=== PATIENT | male | born 1945 | race Caucasian/White ===

== ENCOUNTER 2021-08-04 12:48 | Outpatient (CLI) | payer OTHER, SELFPAY ==
[2021-08-04 17:27] LABS: Cholesterol* 174 mg/dL (90-199); HDL Cholesterol* 45 mg/dL (>=40); LDL Cholesterol Calculated 95 mg/dL (<100); Triglycerides* 168 mg/dL (40-149)
[2021-08-06 16:23] LABS: Transferrin 266 mg/dL (200-360)
== END 2021-08-04 12:49 | disposition home or self-care (01) ==
PROVIDERS: Visit Provider Emergency Medicine
DX: D50.9 Iron deficiency anemia, unspecified (principal); E78.5 Hyperlipidemia, unspecified; I10 Essential (primary) hypertension; E11.9 Type 2 diabetes mellitus without complications; I48.91 Unspecified atrial fibrillation
CPT/HCPCS: 80061; 82728; 84466

== ENCOUNTER 2021-09-07 08:03 | Outpatient (CLI) | payer OTHER, SELFPAY ==
--- NOTE | 2021-09-07 09:22 | W.ANESCHARGE ---
Anesthesia Charges Start Date/Time Anesthesia Start Date: 09/07/21 Anesthesia Start Time: 09:05 Stop Date/Time Anesthesia Stop Date: 09/07/21 Anesthesia Stop Time: 09:21 Summary Emergency: No Extremes of Age: Over 72-CPT 09736
--- NOTE | 2021-09-07 09:53 | W.ANESCHARGE ---
Anesthesia Charges Start Date/Time Anesthesia Start Date: 09/07/21 Anesthesia Start Time: 09:05 Stop Date/Time Anesthesia Stop Date: 09/07/21 Anesthesia Stop Time: 09:21 Summary Emergency: No Extremes of Age: Over 72-CPT 39471
== END 2021-09-07 08:04 | disposition home or self-care (01) ==
LOC: OP CLINIC 08:04
PROVIDERS: PCP Surgery; Visit Provider Surgery
DX: R58 Hemorrhage, not elsewhere classified (principal); K31.89 Other diseases of stomach and duodenum; K31.7 Polyp of stomach and duodenum
CPT/HCPCS: 43239; 731; 88305; 99100

== ENCOUNTER 2021-10-28 14:42 | Outpatient (CLI) | payer OTHER, SELFPAY ==
[2021-10-28 22:41] LABS: Albumin* 4.8 g/dL (3.3-5.0)
[2021-10-28 22:44] LABS: Alanine Aminotransferase* 19 U/L (4-50); Alkaline Phosphatase* 198 U/L (40-150); Aspartate Amino Transferase* 26 U/L (12-35); Bilirubin Direct* 0.2 mg/dL (0.0-0.5); Bilirubin Total* 0.6 mg/dL (0.1-1.5); Total Protein* 7.4 g/dL (6.0-8.3)
[2021-10-28 23:17] LABS: Ferritin* 41.3 ng/mL (17.9-464.0)
[2021-10-30 13:31] LABS: Gamma Glutamyl Transpeptidase* 39 U/L (8-55)
[2021-11-06 23:11] LABS: C.Difficile Negative (Negative); CDIFFEPI 027 PRESUMPTIVE NEGATIVE (Negative)
[2021-11-13 22:08] LABS: Campylobacter PCR Not Detected; Cdiff Toxin A/B PCR Not Detected; Enteroaggregative E coli PCR Not Detected; Plesiomonas shig PCR Not Detected; Salmonella PCR Not Detected; Vibrio PCR Not Detected; Vibrio cholerae PCR Not Detected; Yersinia enterocolitica PCR Not Detected
[2021-11-13 22:09] LABS: Adenovirus PCR Not Detected; Astrovirus PCR Not Detected; Cryptosporidium PCR Not Detected; Cyclospora cayetanensis PCR Not Detected; Entamoeba histolytica PCR Not Detected; Enteropathogenic E coli PCR Not Detected; Enterotoxigenic E coli PCR Not Detected; Giardia lamblia PCR Not Detected; Norovirus Gi/GII PCR Not Detected; Rotavirus A PCR Not Detected; Sapovirus PCR Not Detected; Shiga toxin E coli PCR Not Detected; Shigella/Enteroinvasive E coli Not Detected
== END 2021-10-28 14:43 | disposition home or self-care (01) ==
PROVIDERS: PCP Emergency Medicine; Visit Provider Emergency Medicine
DX: R19.7 Diarrhea, unspecified; D50.9 Iron deficiency anemia, unspecified; B35.1 Tinea unguium; R74.8 Abnormal levels of other serum enzymes; E11.9 Type 2 diabetes mellitus without complications
CPT/HCPCS: 80076; 82728; 82977; 87493; 87505

== ENCOUNTER 2021-11-06 11:37 | Outpatient (CLI) | payer OTHER, SELFPAY | END 2021-11-06 11:38 | disposition home or self-care (01) | LOC: LKVREF 11-09 12:31 | PROVIDERS: PCP Emergency Medicine; Visit Provider Emergency Medicine | DX: R19.7 Diarrhea, unspecified (principal) | CPT/HCPCS: 87493; 87505 ==

== ENCOUNTER 2021-11-19 16:20 | Outpatient (CLI) | payer OTHER, SELFPAY | END 2021-11-19 16:21 | disposition home or self-care (01) | LOC: LKVREF 16:21 | PROVIDERS: PCP Emergency Medicine; Visit Provider Emergency Medicine | DX: R19.7 Diarrhea, unspecified (principal) | CPT/HCPCS: 83516 ==

== ENCOUNTER 2021-12-28 10:43 | Outpatient (CLI) | payer OTHER, SELFPAY | END 2021-12-28 10:44 | disposition home or self-care (01) | LOC: CT 10:44 | PROVIDERS: PCP Family Medicine; Visit Provider Orthopaedic Surgery Sports Medicine | DX: M19.011 Primary osteoarthritis, right shoulder (principal) | CPT/HCPCS: 73200 ==

== ENCOUNTER 2022-02-15 09:43 | Outpatient (CLI) | payer OTHER, SELFPAY ==
[2022-02-15 14:18] LABS: Chloride* 95 mmol/L (96-114)
[2022-02-15 14:19] LABS: Albumin* 4.3 g/dL (3.3-5.0)
[2022-02-15 14:20] LABS: Sodium* 133 mmol/L (135-149)
[2022-02-15 14:29] LABS: Alanine Aminotransferase* 22 U/L (4-50); Alkaline Phosphatase* 180 U/L (40-150); Aspartate Amino Transferase* 21 U/L (12-35); Bilirubin Total* 0.8 mg/dL (0.1-1.5); Blood Urea Nitrogen* 13 mg/dL (7-30); Calcium* 9.5 mg/dL (8.4-10.6); Carbon Dioxide* 29 mmol/L (20-32); Cholesterol* 187 mg/dL (90-199); Creatinine* 0.6 mg/dL (0.5-1.5); Estimated Glomerular Filt Rate 101 ml/min; Glucose* 102 mg/dL (60-115); HDL Cholesterol* 52 mg/dL (>=40); LDL Cholesterol Calculated 108 mg/dL (<100); Potassium* 4.1 mmol/L (3.6-5.1); Total Protein* 6.8 g/dL (6.0-8.3); Triglycerides* 136 mg/dL (40-149)
[2022-02-15 14:45] LABS: Creatinine Urine 51.9 mg/dL
[2022-02-15 14:49] LABS: Microalbumin Creatinine Ratio 10 mg/g (0-30); Microalbumin Urine 1 mg/dL
[2022-02-15 14:57] LABS: Vitamin B12* 483 pg/mL (243-894)
== END 2022-02-15 09:44 | disposition home or self-care (01) ==
PROVIDERS: PCP Family Medicine; Visit Provider Family Medicine
DX: Z01.818 Encounter for other preprocedural examination (principal); D50.9 Iron deficiency anemia, unspecified; E11.9 Type 2 diabetes mellitus without complications; E78.5 Hyperlipidemia, unspecified; I10 Essential (primary) hypertension; I48.91 Unspecified atrial fibrillation; E04.1 Nontoxic single thyroid nodule; R53.83 Other fatigue
CPT/HCPCS: 80053; 80061; 82043; 82570; 82607; 83735; 84443

== ENCOUNTER 2022-02-24 07:12 | Day surgery (SDC) | payer OTHER, SELFPAY ==
[2022-02-24] VITALS (33 sets, daily range): BP systolic 118–169; BP diastolic 70–89; PULSE 52–79; RESP 14–18; TEMP 35.9–36.6; O2SAT 90–100; BMI 39.0
[2022-02-24] MEDS: CELECOXIB 200 MG CAPSULE PO (07:35)
[2022-02-24] MEDS: OXYCODONE (CR) 10 MG TAB.ER.12H PO (07:35)
[2022-02-24] MEDS: ACETAMINOPHEN 500 MG TABLET 1000 MG PO ×3 (07:35→20:49)
[2022-02-24] MEDS: LACTATED RINGERS 1000 ML 1,000 ML 100 ML IV (07:45)
[2022-02-24] MEDS: SODIUM CHLORIDE 0.9 % (FLUSH) 10 ML SYRINGE IVF (07:45)
[2022-02-24] MEDS: MIDAZOLAM HCL 1 MG/ML inj IVP (08:10)
[2022-02-24] MEDS: fentaNYL 100 MCG/2 ML inj IVP (08:10)
--- NOTE | 2022-02-24 08:23 | SUR.PREOP ---
TIME?OUT:?0809 PT/Eda WILSON RN/Mitchel OLIVARES MDA?VERIFICATION?OF?SURGICAL?SITE,?PROCEDURE,?AND?CONSENT OBTAINED?PRIOR?TO?INVASIVE?PROCEDURE.
--- NOTE | 2022-02-24 09:10 | P.NB_ITS ---
Nerve Block Nerve Block Time Seen by Provider: 08:12 Date Seen: 02/24/22 Type of block requested by surgeon for post-operative analgesia: supraclavicular Side: right Time out performed: Yes Verification of patient name: Yes Verification of date of : Yes Site marking: site marked Name of person performing procedure: Swapnil Continuous monitoring Was continuous monitoring of O2 sat, B/P, quality assurance monitor, recorded every 15 minutes?: Yes Procedure Checklist: sterile prep, needles and gloves Ultrasound guided. Images saved: Yes Medications given in 5ml increments after negative aspiration: Ropivicaine %: 0.5 mL: 20 Needle gauge: 22 Decadron (mg): 10 Precedex (mcg): 25 Patient tolerated procedure well: Yes Block Charges Block Charge (with Pro Fee): Brachial Plexus Use of Ultrasound Machine for Block: Yes- US Guidance/pain block
--- NOTE | 2022-02-24 09:11 | CRLHL7_ITS ---
For Patients: As a result of the Cures Act, medical imaging exams and procedure reports are released immediately into your electronic medical record. You may view this report before your referring provider. If you have questions, please contact your health care provider. Indication: Post op right TSA Technique: Two views right shoulder Findings/Impression: Hardware from a right total shoulder arthroplasty is in satisfactory position. Bone alignment is normal. No sign of acute fracture. Postop changes are within normal limits. Dictated by Philip Pickard MD @ 02/24/2022 3:37:49 PM (Electronically Signed)
[2022-02-24] MEDS: CEFAZOLIN 2 GM in 0.9 % SODIUM CHLORIDE Mini-bag 100 ML IVPB (09:14)
--- NOTE | 2022-02-24 11:03 | P.ORPRC_ITS ---
Procedure Note Date of procedure: 02/24/22 Procedure: PREOPERATIVE DIAGNOSIS: 1. Right shoulder osteoarthrosis, primary, severe 2. Right long head of the biceps tendinopathy and tenosynovitis POSTOPERATIVE DIAGNOSIS: 1. Right shoulder osteoarthrosis, primary, severe with fair to poor cuff tissue quality 2. Right long head of the biceps tendinopathy and tenosynovitis PROCEDURE: 1. Right reverse shoulder arthroplasty. 2. Right long head of biceps open tenodesis SURGEON: Prince Delgado MD. ASSOCIATE AUTOMATION ENGINEER: Pradeep Ding PA-C; Chasity Wise PA-C - Of note, a skilled porcelain buildup assistant was critical for this case to aid in patient positioning, tissue retraction, limb manipulation/positioning, retraction for glenoid exposure, which was challenging, awareness and protection of critical structures, and closure. ANESTHESIA: General plus supraclavicular block IMPLANTS: DJ0 surgical Altivate humeral stem size 14 standard shell, short with P2 porous coating vitamin E neutral poly small socket insert RSP glenoid base plate P2 porous coating with 4 perimeter locking screws 32 neutral glenosphere with retaining screw COMPLICATIONS: None evident INDICATIONS: The patient is a pleasant 76-year-old male who has experienced severe right shoulder pain and difficulty with use. Workup included imaging which revealed severe osteoarthrosis along with concern for rotator cuff quality. Physical exam was consistent with associated pain. Given the deformity, the dysfunction, and the pain, and failure of nonoperative management, recommendation was made for surgery. DESCRIPTION OF PROCEDURE: Following a thorough discussion of risks, benefits, and alternatives, consent was obtained and the left shoulder was marked. The patient was brought to the operating room and placed supine on the operating table. Induction of anesthesia was undertaken. 3 g IV Ancef and 1 g tranexamic acid was administered within 1 hr of incision preoperatively. Appropriate time-out was performed identifying proper patient, site, and procedure. The operative extremity was prepped and draped in the appropriate sterile fashion using ChloraPrep after the patient was positioned in the lazy beach chair position with head in neutral alignment and all bony prominences well padded. A longitudinal incision was made for deltopectoral approach. Deltoid was retracted laterally. Cephalic vein was not identified in the case. Deltopectoral interval was identified by identifying the pectoralis insertion on the humerus and tracking it more proximally. The clavipectoral fascia was identified and divided longitudinally staying lateral to the conjoined tendon / coracoid. The conjoined tendon was protected with a blunt Hohmann. It is The upper 1/3 of the pectoralis major was also released from its insertion. The long head of the biceps was tenodesed to the pectoralis major tendon. The remaining proximal tendon tissue was excised. The rotator cuff was inspected and found to have good integrity with the subscapularis but fair integrity with a supraspinatus], and a decision for a reverse shoulder arthroplasty was confirmed. The long head of biceps, of note, was significant flattened, thickened, with abundant tenosynovitis. A subscapularis cuff of tissue was left via tenotomy for later repair with the remaining subscapularis released in a subperiosteal fashion with the Bovie. This was tagged for later repair. The 3 sisters were cauterized. The upper subscapularis was released from the capsule with a curved Arnold scissors towards the glenoid. The inferior subscapularis was divided from the capsular tissue on its caudal surface with particular caution for the axillary nerve. This was palpated anterior to the subscapularis both prior to and near the finish of the case. Inferior humeral head osteophytes were excised with caution taken throughout the case with regards to the axillary nerve. The humerus was dislocated, and humeral head cut completed. Then a protector plate was applied. We turned our attention to the glenoid. The humerus was retracted posteriorly. The subscap was protected anteriorly and the labrum/long head biceps origin was excised circumferentially. The capsule was released along the anterior and inferior portions of the glenoid cautiously with a Arango elevator being careful not to penetrate deep. The glenoid had appropriate exposure, and was prepared with the cannulated system with a target of approximately 5-10? of inferior tilt and neutral anteversion (patient had 20 ? of retroversion initially). [Utilizing the match Point 3D printed guide, the guide pin was placed. The 3D printed jig removed and after placing the guide pin, the tap was placed followed by the glenoid reaming. The real base plate was opened, and inserted, and excellent compression/purchase was achieved with the central screw. Peripheral screws were then drilled, measured, and placed. The glenosphere was then placed consistent with the preoperative plan utilizing the above noted glenosphere. After securing the glenosphere with the locking, torque limited screw, attention was turned back to the humerus. A canal finder was placed followed by various reamers by hand. The real humeral stem was then opened and inserted with excellent metaphyseal fit and stability. Trial poly was placed and the shoulder reduced. Excellent reduction and stability achieved with appropriate tension on the conjoined tendon. At this stage, trial implants were removed, and the real implants inserted and the shoulder reduced. A 3 minute Betadine soak was performed followed by a thorough irrigation with normal saline. Subscapularis was repaired with #1 PDS to the cuff of tissue on the lesser tuberosity. Excellent reapproximation of tissue achieved. Hemostasis was found to be appropriate. The deltopectoral interval was reapproximated with 0 Vicryl, subcutaneous and subcuticular closure was then performed with number 2-0 Vicryl and 4-0 Monocryl, respectively. A skilled porcelain buildup assistant was critical for this case to aid in patient positioning, tissue retraction, limb manipulation/positioning, retraction for glenoid exposure, which was challenging, awareness and protection of critical structures, and closure. PLAN: 1. Sling at all times for the operative upper extremity. 2. AROM of elbow, forearm, wrist, and digits as tolerated. 3. PT/OT consults for education and assistance. 4. Social consult for discharge planning. 5. 23 hr perioperative antibiotics. 6. Early ambulation, and SCDs for DVT prophylaxis. 7. Admit to the hospital for the above 8. Analgesics p.r.n.
--- NOTE | 2022-02-24 11:27 | W.ANESCHARGE ---
Anesthesia Charges Start Date/Time Anesthesia Start Date: 02/24/22 Anesthesia Start Time: 08:50 Stop Date/Time Anesthesia Stop Date: 02/24/22 Anesthesia Stop Time: 11:46 Summary Emergency: No Extremes of Age: Over 72-CPT 11762
--- NOTE | 2022-02-24 11:48 | W.ANESCHARGE ---
Anesthesia Charges Start Date/Time Anesthesia Start Date: 02/24/22 Anesthesia Start Time: 08:50 Stop Date/Time Anesthesia Stop Date: 02/24/22 Anesthesia Stop Time: 11:46 Summary Emergency: No Extremes of Age: Over 72-CPT 30574
--- NOTE | 2022-02-24 12:33 | SUR.PHASEI ---
patient met discharge criteria per anesthesia
--- NOTE | 2022-02-24 14:08 | P.IMCN_ITS ---
Date of Consult Patient: [facility] Patient Consult date: 02/24/22 Requesting Physician: Orthopedics Primary Care Provider: Lorene Maher, Consult Narrative Reason for consult: Narrative: HOSPITALIST CONSULT Hospital Day #1 Post Op Day #0; right total shoulder arthroplasty The hospital medicine team was asked by Orthopedic team to manage the patient's atrial fibrillation with anti rhythmic therapy, type 2 diabetes, aortic dilation, hypertension. There have been no perioperative concerns or questions. I updated the [facility] histories and Medications and Allergies in the Expanse tabs Manuel Pierre is a 75 y.o. gentleman with a history of PAF, aortic dilation, mild hyperlipidemia, hypertension, DM2, and anemia with negative colonoscop ... ? He is followed by [facility] at [facility]; At that time, it was advised that he repeat an echocardiogram for aortic enlargement assessment, closely follow BPs at home, and consider screening of first degree relatives. A ziopatch and nuclear stress test were also ordered due to his anti-arrhythmic therapy. The NM stress test showed normal myocardial perfusion and normal LV function on 08/19/21. The ziopatch returned with evidence of some short runs of SVT at a slow rate, and his symptoms correlated to some premature beats. He was continued on his propafenone. ? Most recent echo showed normal LVEF, severe LAE, and max dilation of ascending aorta to 4.4 cm and aortic sinus to 4.1 cm (no significant change from prior echocardiogram where these numbers were 4.4/4 PHYSICAL EXAM: CODE STATUS: FULL CODE CONSTITUTIONAL: Conversive, good historian. A/O. Knows setting and context. VITAL SIGNS: see record. HEENT: Normocephalic, atraumatic. PERRL, EOMI, conjunctivae pink, no scleral icterus. Ears and nose externally normal. Pharynx normal. NECK: No JVD. No carotid bruit, no thyromegaly, no adenopathy. CHEST: Clear to auscultation bilaterally HEART: No harsh murmurs. S1/S2. ABDOMEN: Soft, nontender. Normal bowel sounds. Moderately obese. EXTREMITIES: right arm is in sling; ice in place. NVI but mobility not assessed. MUSCULOSKELETAL: NEURO: Cranial nerves intact. Normal affect. No gross deficits. Speech intelligible. SKIN: No rashes, petechiae, concerning changes PSYCHIATRIC: Euthymic. INVESTIGATIONS: EMR Reviewed DISPOSITION: MedSurg Recovery; Discharge tomorrow DVT: n/a but is on chronic anticoagulation for other reasons GI: PO intake PFSH PFSH Medical History (Updated 02/24/22 @ 14:48 by Val Alonso MD) Anemia Iron deficiency anemia Obstructive sleep apnea treated with continuous positive airway pressure (CPAP) Onychomycosis Osteoarthritis, shoulder Surgical History (Updated 02/24/22 @ 13:20 by Dolores Chow) Cataract extraction status of eye History of bursectomy History of colonoscopy with polypectomy (05/26/21) History of inguinal hernia repair History of thyroidectomy History of tonsillectomy 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) History of umbilical hernia repair Hx of total knee arthroplasty (08/25/20) Status post inguinal ligation of varicocele 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) Family History Father Dementia Social History Smoking Status: Never smoker How often do you have a drink containing alcohol: never AUDIT-C Alcohol total score: 0 Non-prescribed substance use: denies use Caffeine: Yes (Coffee 1 cup/day) Meds Home Medications and Allergies Home Medications Medication Instructions Recorded Confirmed Type clotrimazole 1 % topical cream 1 applic topical Q12H PRN 08/04/21 02/24/22 History fluorouracil 5 % topical cream 5 applic topical .One Day Per Week 08/04/21 02/24/22 History fluticasone propionate 50 1 spray intranasal HS PRN 08/04/21 02/24/22 History mcg/actuation nasal spray,suspension psyllium husk 3.4 gram/5.4 gram 2 tsp PO BID 08/04/21 02/24/22 History oral powder acetaminophen 650 mg 650 mg PO TID 09/01/21 02/24/22 History tablet,extended release albuterol sulfate 90 mcg/actuation 1 puff inhalation Q4H PRN 10/28/21 02/24/22 History aerosol inhaler apixaban 5 mg tablet 5 mg PO BID 10/28/21 02/24/22 History cetirizine 10 mg tablet 10 mg PO HS 10/28/21 02/24/22 History fluticasone 250 mcg-salmeterol 50 1 inh inhalation BID PRN 10/28/21 02/24/22 History mcg/dose blistr powdr for inhalation magnesium oxide 250 mg PO .Bedtime 10/28/21 02/24/22 History melatonin 5 mg capsule 5 mg PO .Bedtime 10/28/21 02/24/22 History potassium chloride 10 mEq 10 meq PO DAILY 10/28/21 02/24/22 History capsule,extended release propafenone 225 mg tablet 225 mg PO TID 10/28/21 02/24/22 History vit A 7,160 unit-vit C 113 mg-vit 1 tab PO DAILY 10/28/21 02/24/22 History E-zinc [id number] 1 mg tablet ([facility]) cholestyramine (with sugar) 4 gram 4 g PO DAILY PRN 02/22/22 02/24/22 History oral powder clotrimazole-betamethasone 1 1 applic topical Q12H PRN 02/22/22 02/24/22 History %-0.05 % topical cream ezetimibe 10 mg tablet 10 mg PO HS 02/22/22 02/24/22 History metoprolol succinate 100 mg 100 mg PO HS 02/22/22 02/24/22 History tablet,extended release 24 hr tamsulosin 0.4 mg capsule 0.4 mg PO HS 02/22/22 02/24/22 History Allergies Allergy/AdvReac Type Severity Reaction Status Date / Time benazepril Allergy Cough Verified 02/24/22 07:53 pravastatin AdvReac Unknown Muscle Verified 02/24/22 07:53 aches Exam Const: Vital Signs, click to edit/add: Vital Signs - 24 hr 02/24/22 07:55 02/24/22 08:08 02/24/22 08:10 Temperature 97.8 F Pulse Rate 59 L 61 59 L Pulse Rate [Pulse Oximeter] Respiratory Rate 18 18 16 Blood Pressure 146/73 H 156/89 H 169/88 H Blood Pressure [Le ft Arm] Pulse Oximetry 96 99 100 Oxygen Delivery Me thod Room Air Nasal Cannula Nasal Cannula Oxygen Flow Rate 2 2 02/24/22 08:30 02/24/22 08:15 02/24/22 08:45 Temperature Pulse Rate 52 L 56 L 53 L Pulse Rate [Pulse Oximeter] Respiratory Rate 16 16 16 Blood Pressure 129/70 138/80 126/75 Blood Pressure [Le ft Arm] Pulse Oximetry 98 99 97 Oxygen Delivery Me thod Nasal Cannula Nasal Cannula Nasal Cannula Oxygen Flow Rate 2 2 2 02/24/22 11:42 02/24/22 11:45 02/24/22 11:50 Temperature 97.2 F L 97.2 F L 97.2 F L Pulse Rate 65 64 63 Pulse Rate [Pulse Oximeter] Respiratory Rate 16 16 14 Blood Pressure 142/80 H 138/78 138/76 Blood Pressure [Le ft Arm] Pulse Oximetry 97 97 97 Oxygen Delivery Me thod Nasal Cannula Nasal Cannula Nasal Cannula Oxygen Flow Rate 2 2 2 02/24/22 11:55 02/24/22 12:00 02/24/22 12:05 Temperature 97.2 F L 97.2 F L 97.2 F L Pulse Rate 61 64 61 Pulse Rate [Pulse Oximeter] Respiratory Rate 15 16 16 Blood Pressure 139/76 142/76 H 138/77 Blood Pressure [Le ft Arm] Pulse Oximetry 97 94 97 Oxygen Delivery Me thod Nasal Cannula Nasal Cannula Nasal Cannula Oxygen Flow Rate 2 2 2 02/24/22 12:10 02/24/22 12:15 02/24/22 12:20 Temperature 97.2 F L 97.2 F L 97.1 F L Pulse Rate 61 60 60 Pulse Rate [Pulse Oximeter] Respiratory Rate 15 14 15 Blood Pressure 144/79 H 140/77 H 142/75 H Blood Pressure [Le ft Arm] Pulse Oximetry 97 97 97 Oxygen Delivery Me thod Nasal Cannula Nasal Cannula Nasal Cannula Oxygen Flow Rate 2 2 2 02/24/22 12:25 02/24/22 12:48 02/24/22 12:30 Temperature 97.1 F L 97.1 F L 96.6 F L Pulse Rate 60 Pulse Rate [Pulse Oximeter] 63 Respiratory Rate 16 16 16 Blood Pressure 142/75 H Blood Pressure [Le ft Arm] 147/81 H 147/81 H Pulse Oximetry 97 97 92 Oxygen Delivery Me thod Nasal Cannula Nasal Cannula Nasal Cannula Oxygen Flow Rate 2 2 2 02/24/22 13:00 02/24/22 12:30 02/24/22 12:30 Temperature 96.6 F L 97.1 F L Pulse Rate 63 Pulse Rate [Pulse Oximeter] 61 63 Respiratory Rate 16 18 16 Blood Pressure Blood Pressure [Le ft Arm] 147/80 H 147/81 H 147/81 H Pulse Oximetry 90 91 Oxygen Delivery Me thod Nasal Cannula Room Air Room Air Oxygen Flow Rate 2 1 02/24/22 12:45 02/24/22 13:15 02/24/22 13:45 Temperature 97.0 F L Pulse Rate Pulse Rate [Pulse Oximeter] 63 65 66 Respiratory Rate 16 16 16 Blood Pressure Blood Pressure [Le ft Arm] 140/81 H 154/87 H 150/82 H Pulse Oximetry 90 91 91 Oxygen Delivery Me thod Room Air Nasal Cannula Nasal Cannula Oxygen Flow Rate 2 2 Assessment and Plan Assessment and plan (1) Osteoarthritis of right shoulder: Problem comment: Dr Williamson. Severe, surgical intervention. Reverse total arthroplasty 02/24/2019 Status: Acute (2) Status post reverse arthroplasty of right shoulder: Problem comment: RSA and open biceps tenodesis (02/24/2022, Dr. Delgado) Status: Acute (3) Atrial fibrillation: Problem comment: Followed by [facility]. On oral anticoagulation and antiarrhythmic therapies. Recent cardiology visit reviewed, echo, Zio patch, stress test all reviewed. -continued the anticoagulant and anti arrhythmic. Place on telemetry. Status: Acute (4) Ascending aorta dilatation: Problem comment: Dr Paul, [facility] aortic sinus 4.2 asc aorta 4.4 - stable 2021 Status: Acute (5) Controlled type 2 diabetes mellitus: Problem comment: HgbA1c 03/01 6.4% - stable on metformin monotherapy -bedside glucose monitoring, continue metformin once eating Status: Acute (6) Hypertension: Problem comment: Continue home regimen with parameters Status: Acute
[2022-02-24] MEDS: PROPAFENONE HCL 150 MG TABLET 225 MG PO ×2 (14:48→20:47)
[2022-02-24] MEDS: CEFAZOLIN 3 GM in 0.9 % SODIUM CHLORIDE 100 ml 100 ML IVPB ×2 (15:03→23:08)
[2022-02-24] MEDS: METFORMIN 1,000 MG TABLET 1000 MG PO (17:10)
[2022-02-24] MEDS: LACTATED RINGERS 1000 ML 1,000 ML 75 ML IV (17:50)
--- NOTE | 2022-02-24 18:15 | PC.NURSE ---
End of Shift: Pt pleasant and cooperative. Afebrile.pain was 3/10 on admission and later 1/10 and 0/10. po Tylenol was given. . Dressing to right shoulder C/D/I. CMS intact and able to move fingers /arms.. Up to the bathroom and chair with 1 assist and gait belt. he is steady. Tolerating regular diet with no nausea. teds and plexi are on. . Cryo cuff to the shoulder. Iv is patent. IS to 1500/ he has sensation to hand and arm on arrival from PACU
[2022-02-24] MEDS: CETIRIZINE HCL 10 MG TABLET PO (20:45)
[2022-02-24] MEDS: APIXABAN 5 MG TABLET PO (20:45)
[2022-02-24] MEDS: EZETIMIBE 10 MG TABLET PO (20:46)
[2022-02-24] MEDS: MELATONIN 3 MG TABLET 6 MG PO (20:46)
[2022-02-24] MEDS: METOPROLOL SUCCINATE (XL) 100 MG TAB PO (20:46)
[2022-02-24] MEDS: MAGNESIUM OXIDE 400 MG TABLET PO (20:46)
[2022-02-24] MEDS: TAMSULOSIN HCL 0.4 MG CAPSULE PO (20:49)
[2022-02-25 00:43] VITALS: PULSE 76
[2022-02-25 01:00] VITALS: BP 140/81; PULSE 61; RESP 18; TEMP 36.2; O2SAT 94
[2022-02-25 01:38] VITALS: PULSE 60
[2022-02-25 03:00] VITALS: BP 158/92; PULSE 69; RESP 18; TEMP 36.3; O2SAT 95
[2022-02-25] MEDS: ACETAMINOPHEN 500 MG TABLET 1000 MG PO ×2 (04:35→09:25)
[2022-02-25] MEDS: CEFAZOLIN 3 GM in 0.9 % SODIUM CHLORIDE 100 ml 100 ML IVPB (06:19)
[2022-02-25] MEDS: OMEPRAZOLE 20 MG CAPSULE DR PO (06:19)
[2022-02-25 07:00] VITALS: BP 178/92; PULSE 57; RESP 16; TEMP 36.4; O2SAT 97
--- NOTE | 2022-02-25 07:40 | PC.NURSE ---
Pt pleasant cooperative. VSS minimal pain 1/10. No pain meds given except scheduled Tylenol. Up with SBA to BR. Pt wears CPAP at night. Drsg to shoulder is CDI. Cryocuff in place with fresh ice. CMS intact.
[2022-02-25 07:44] LABS: Hematocrit 32.5 % (37.0-53.0); Hemoglobin* 11.1 gm/dL (13.5-17.5); Mean Corpuscular HGB Conc 34 gm/dL (32-36); Mean Corpuscular Hemoglobin 25 pg (26-34); Mean Corpuscular Volume 74 fL (80-100); Platelet Count* 364 K/uL (140-440); White Blood Count* 11.06 K/uL (4.50-11.00)
[2022-02-25 07:45] VITALS: PULSE 60
[2022-02-25 07:49] LABS: Slide Review Reflex Yes
[2022-02-25 08:04] LABS: Slide Review Acceptable Review (Acceptable); Sodium* 129 mmol/L (135-149)
[2022-02-25 08:05] LABS: Potassium* 3.8 mmol/L (3.6-5.1)
[2022-02-25 08:07] LABS: Creatinine* 0.6 mg/dL (0.5-1.5); Est. Creatinine Clearance* 69.03; Estimated Glomerular Filt Rate 101 ml/min
[2022-02-25 08:08] LABS: Blood Urea Nitrogen* 18 mg/dL (7-30)
[2022-02-25] MEDS: LOSARTAN POTASSIUM 50 MG TABLET 100 MG PO (08:31)
[2022-02-25] MEDS: METFORMIN 1,000 MG TABLET 1000 MG PO (08:32)
[2022-02-25] MEDS: POTASSIUM CHLORIDE 10 MEQ CAPSULE ER PO (08:32)
[2022-02-25] MEDS: APIXABAN 5 MG TABLET PO (08:33)
[2022-02-25] MEDS: PROPAFENONE HCL 150 MG TABLET 225 MG PO (08:33)
[2022-02-25] MEDS: hydroCHLOROthiazide 25 MG TABLET PO (08:33)
--- NOTE | 2022-02-25 09:11 | PM.ORPN ---
Subjective Subjective Time Seen by Provider: 08:30 Date Seen: 02/25/22 Principal diagnosis: Status post right reverse total shoulder arthroplasty Interval history: Daniel is comfortable this morning. He is able to flex and extend his wrist and fingers. His block is beginning to wear off. He is discharging to home today. Ortho Exam Narrative Exam Narrative: Alert and oriented x3. Patient is in no acute distress. Converses without labored breathing. Hearing is grossly intact. Ambulates with a normal gait. Examination of the right shoulder shows the dressings place. Soft tissue edema about the shoulder. Mild ecchymosis. Wrist extension and flexion and supination pronation is normal. Able to fully extend and flex his fingers. CMS intact in his right hand. No soft tissue edema in the hand or forearm. Const Vital Signs, click to edit/add: Vital Signs - 24 hr 02/24/22 11:42 02/24/22 11:45 02/24/22 11:50 Temperature 97.2 F L 97.2 F L 97.2 F L Pulse Rate 65 64 63 Pulse Rate [Pulse Oximeter] Respiratory Rate 16 16 14 Blood Pressure 142/80 H 138/78 138/76 Blood Pressure [Left Arm] Pulse Oximetry 97 97 97 Oxygen Delivery Method Nasal Cannula Nasal Cannula Nasal Cannula Oxygen Flow Rate 2 2 2 02/24/22 11:55 02/24/22 12:00 02/24/22 12:05 Temperature 97.2 F L 97.2 F L 97.2 F L Pulse Rate 61 64 61 Pulse Rate [Pulse Oximeter] Respiratory Rate 15 16 16 Blood Pressure 139/76 142/76 H 138/77 Blood Pressure [Left Arm] Pulse Oximetry 97 94 97 Oxygen Delivery Method Nasal Cannula Nasal Cannula Nasal Cannula Oxygen Flow Rate 2 2 2 02/24/22 12:10 02/24/22 12:15 02/24/22 12:20 Temperature 97.2 F L 97.2 F L 97.1 F L Pulse Rate 61 60 60 Pulse Rate [Pulse Oximeter] Respiratory Rate 15 14 15 Blood Pressure 144/79 H 140/77 H 142/75 H Blood Pressure [Left Arm] Pulse Oximetry 97 97 97 Oxygen Delivery Method Nasal Cannula Nasal Cannula Nasal Cannula Oxygen Flow Rate 2 2 2 02/24/22 12:25 02/24/22 12:48 02/24/22 12:30 Temperature 97.1 F L 97.1 F L 96.6 F L Pulse Rate 60 Pulse Rate [Pulse Oximeter] 63 Respiratory Rate 16 16 16 Blood Pressure 142/75 H Blood Pressure [Left Arm] 147/81 H 147/81 H Pulse Oximetry 97 97 92 Oxygen Delivery Method Nasal Cannula Nasal Cannula Nasal Cannula Oxygen Flow Rate 2 2 2 02/24/22 13:00 02/24/22 12:30 02/24/22 12:30 Temperature 96.6 F L 97.1 F L Pulse Rate 63 Pulse Rate [Pulse Oximeter] 61 63 Respiratory Rate 16 18 16 Blood Pressure Blood Pressure [Left Arm] 147/80 H 147/81 H 147/81 H Pulse Oximetry 90 91 Oxygen Delivery Method Nasal Cannula Room Air Room Air Oxygen Flow Rate 2 1 02/24/22 12:45 02/24/22 13:15 02/24/22 13:45 Temperature 97.0 F L Pulse Rate Pulse Rate [Pulse Oximeter] 63 65 66 Respiratory Rate 16 16 16 Blood Pressure Blood Pressure [Left Arm] 140/81 H 154/87 H 150/82 H Pulse Oximetry 90 91 91 Oxygen Delivery Method Room Air Nasal Cannula Nasal Cannula Oxygen Flow Rate 2 2 02/24/22 14:17 02/24/22 14:00 02/24/22 16:09 Temperature 97.1 F L Pulse Rate Pulse Rate [Pulse Oximeter] 63 66 75 Respiratory Rate 18 18 18 Blood Pressure Blood Pressure [Left Arm] 143/75 H 140/83 H 146/84 H Pulse Oximetry 91 90 91 Oxygen Delivery Method Room Air Room Air Room Air Oxygen Flow Rate 2 02/24/22 16:22 02/24/22 14:30 02/24/22 15:00 Temperature 97.1 F L Pulse Rate 76 Pulse Rate [Pulse Oximeter] 66 67 Respiratory Rate 18 18 Blood Pressure Blood Pressure [Left Arm] 157/85 H 161/83 H Pulse Oximetry 91 92 Oxygen Delivery Method Room Air Room Air Oxygen Flow Rate 02/24/22 16:00 02/24/22 18:00 02/24/22 17:00 Temperature Pulse Rate Pulse Rate [Pulse Oximeter] 75 79 71 Respiratory Rate 18 18 18 Blood Pressure Blood Pressure [Left Arm] 146/84 H 125/71 148/80 H Pulse Oximetry 91 92 90 Oxygen Delivery Method Room Air Room Air Room Air Oxygen Flow Rate 02/24/22 19:15 02/24/22 19:15 02/25/22 00:43 Temperature 97.6 F 97.6 F Pulse Rate 76 Pulse Rate [Pulse Oximeter] 77 77 Respiratory Rate 18 18 Blood Pressure Blood Pressure [Left Arm] 118/70 118/70 Pulse Oximetry 95 95 Oxygen Delivery Method Room Air Room Air Oxygen Flow Rate 02/25/22 01:00 02/25/22 01:38 02/25/22 03:00 Temperature 97.2 F L 97.4 F L Pulse Rate 60 Pulse Rate [Pulse Oximeter] 61 69 Respiratory Rate 18 18 Blood Pressure Blood Pressure [Left Arm] 140/81 H 158/92 H Pulse Oximetry 94 95 Oxygen Delivery Method Room Air CPAP Room Air Oxygen Flow Rate 02/24/22 23:00 02/25/22 07:00 Temperature 97.5 F L Pulse Rate Pulse Rate [Pulse Oximeter] 69 57 L Respiratory Rate 16 Blood Pressure Blood Pressure [Left Arm] 178/92 H Pulse Oximetry 97 Oxygen Delivery Method Room Air Oxygen Flow Rate Assessment and Plan Assessment and plan (1) Osteoarthritis of right shoulder: Problem details: Dr Williamson. Severe, surgical intervention. Reverse total arthroplasty 02/24/2019 Status: Resolved (2) Status post reverse arthroplasty of right shoulder: Problem details: RSA and open biceps tenodesis (02/24/2022, Dr. Delgado) Status: Acute Assessment and Plan: Plan for discharge is to home when they meet discharge criteria. Patient will wear the sling for 6 weeks post surgery. They can take it off for comfort and for exercises. Activity: no external rotation of the operative shoulder past 0? x 6 weeks. They will work on range of motion of the elbow, wrist, fingers once the block has wore off on the operative extremity. Patient will begin physical therapy for the operative shoulder next week. For discharge, oxycodone and Tylenol for pain. Do not drive while on narcotic pain medication. Drive only when safe to do so, when they have normal use/function of the upper extremity, this will likely take 6 weeks. Patient will minimize and discontinue the narcotic as soon as possible. Remove dressing in 1 week. Dressing is waterproof. May shower. Surgical glue covers the wound. Do not scrub the wound. Expect swelling and bruising about the shoulder and upper extremity. Use of ice/active ice without restriction. Notify Orthopedics his swelling is excessive. notify Orthopedics with any questions or concerns. [phone] Return to Orthopedic clinic next week for a wound check Return to clinic in [address] Delgado (3) Atrial fibrillation: Problem details: Followed by [facility]. On oral anticoagulation and antiarrhythmic therapies. Recent cardiology visit reviewed, echo, Zio patch, stress test all reviewed. -continued the anticoagulant and anti arrhythmic. Place on telemetry. Status: Acute (4) Ascending aorta dilatation: Problem details: Dr Paul, [facility] aortic sinus 4.2 asc aorta 4.4 - stable 2021 Status: Acute (5) Controlled type 2 diabetes mellitus: Problem details: HgbA1c 03/01 6.4% - stable on metformin monotherapy -bedside glucose monitoring, continue metformin once eating Status: Acute (6) Hypertension: Problem details: Continue home regimen with parameters Status: Acute
[2022-02-25] MEDS: OXYCODONE 5 MG TABLET PO (09:25)
--- NOTE | 2022-02-25 14:58 | PC.NURSE ---
Discharge-- Very pleasant and cooperative, alert and oriented patient discharged to home via wheelchair at approximately 1200. VSS and pt is afebrile. SPO2 maintained >90% on RA. Dressing to right shoulder is C/D/I and CMS WNL. He c/o pain in his shoulder which he rated as high as 3 out of 10 but appears well managed with Oxycodone and Tylenol. Cryocuff in place. LS CTA. Telemetry showed NSR. He denied nausea and tolerated a regular diet without difficulty. He was up to the BR with SBA and tolerated it well. Discharge education was provided including diagnosis info, symptoms to report, medications and follow up plan. SL was removed with tip intact. All questions were answered.
--- NOTE | 2022-02-25 15:25 | PM.IMPN1 ---
Progress Note: A&P Assessment and plan (1) Osteoarthritis of right shoulder: Problem details: Dr Williamson. Severe, surgical intervention. Reverse total arthroplasty 02/24/2019 Status: Resolved (2) Status post reverse arthroplasty of right shoulder: Problem details: RSA and open biceps tenodesis (02/24/2022, Dr. Delgado) Status: Acute (3) Atrial fibrillation: Problem details: Followed by [facility]. On oral anticoagulation and antiarrhythmic therapies. Recent cardiology visit reviewed, echo, Zio patch, stress test all reviewed. -continued the anticoagulant and anti arrhythmic. Place on telemetry. Status: Acute Assessment and Plan: Did well overnight. Will stop telemetry. Ready for discharge. (4) Ascending aorta dilatation: Problem details: Dr Paul, [facility] aortic sinus 4.2 asc aorta 4.4 - stable 2021 Status: Acute (5) Controlled type 2 diabetes mellitus: Problem details: HgbA1c 03/01 6.4% - stable on metformin monotherapy -bedside glucose monitoring, continue metformin once eating Status: Acute Assessment and Plan: Did well overnight. Ready for discharge. (6) Hypertension: Problem details: Continue home regimen with parameters Status: Acute Assessment and Plan: Did well overnight. Ready for discharge. Plan No medical contraindications for her to be discharged. Time Spent With Patient Total time spent: 20 minutes Subjective Time Seen by Provider: 10:00 Date Seen: 02/25/22 Interval history: Hospital day 2. Postoperative day 1. States pain is well controlled. Able to carry out all activities with physical and occupational therapy. No concerns. Exam Narrative: Exam Narrative: Appears comfortable. No acute distress. Alert, oriented to self, place, time, situation. Pleasant disposition. Friendly, talkative, articulate. Mood and affect are congruent. Lungs clear to auscultation. Heart tones with regular rhythm. Abdomen is obese Independent transfer, station, and gait. Modestly broad-based stance, not new. Const: Vital Signs, click to edit/add: Vital Signs - 24 hr 02/24/22 16:09 02/24/22 16:22 02/24/22 16:00 Temperature 97.1 F L Pulse Rate 76 Pulse Rate [Pulse Oximeter] 75 75 Respiratory Rate 18 18 Blood Pressure [Le ft Arm] 146/84 H 146/84 H Pulse Oximetry 91 91 Oxygen Delivery Me thod Room Air Room Air Oxygen Flow Rate 2 02/24/22 18:00 02/24/22 17:00 02/24/22 19:15 Temperature 97.6 F Pulse Rate Pulse Rate [Pulse Oximeter] 79 71 77 Respiratory Rate 18 18 18 Blood Pressure [Le ft Arm] 125/71 148/80 H 118/70 Pulse Oximetry 92 90 95 Oxygen Delivery Me thod Room Air Room Air Room Air Oxygen Flow Rate 02/24/22 19:15 02/25/22 00:43 02/25/22 01:00 Temperature 97.6 F 97.2 F L Pulse Rate 76 Pulse Rate [Pulse Oximeter] 77 61 Respiratory Rate 18 18 Blood Pressure [Le ft Arm] 118/70 140/81 H Pulse Oximetry 95 94 Oxygen Delivery Me thod Room Air Room Air CPAP Oxygen Flow Rate 02/25/22 01:38 02/25/22 03:00 02/24/22 23:00 Temperature 97.4 F L Pulse Rate 60 Pulse Rate [Pulse Oximeter] 69 69 Respiratory Rate 18 Blood Pressure [Le ft Arm] 158/92 H Pulse Oximetry 95 Oxygen Delivery Me thod Room Air Oxygen Flow Rate 02/25/22 07:00 02/25/22 07:45 02/25/22 07:00 Temperature 97.5 F L Pulse Rate 60 Pulse Rate [Pulse Oximeter] 57 L 57 L Respiratory Rate 16 16 Blood Pressure [Le ft Arm] 178/92 H Pulse Oximetry 97 Oxygen Delivery Me thod Room Air Oxygen Flow Rate Labs Labs: Laboratory Results - last 24 hr 02/25/22 02/25/22 07:30 07:30 WBC 11.06 H RBC 4.40 Hgb 11.1 L Hct 32.5 L MCV 74 L MCH 25 L MCHC 34 Plt Count 364 Diff Slide Review Acceptable Review Sodium 129 L Potassium 3.8 BUN 18 Creatinine 0.6 Estimated Creat Clear 69.03 Estimated GFR 101
== END 2022-02-25 12:00 | disposition home or self-care (01) ==
LOC: OR 07:13 → MEDSURG 07:16
PROVIDERS: PCP Family Medicine; Visit Provider Orthopaedic Surgery Sports Medicine
PROC: 0RRJ0JZ Replacement of Right Shoulder Joint with Synthetic Substitute, Open Approach (ICD-10-PCS; CPT 23472; principal; 2022-02-24 09:00)
DX: M19.011 Primary osteoarthritis, right shoulder (principal); M75.21 Bicipital tendinitis, right shoulder; M25.511 Pain in right shoulder; I48.91 Unspecified atrial fibrillation; I77.810 Thoracic aortic ectasia; E11.9 Type 2 diabetes mellitus without complications; I10 Essential (primary) hypertension; G47.33 Obstructive sleep apnea (adult) (pediatric); D50.9 Iron deficiency anemia, unspecified
CPT/HCPCS: 23472; 23430; 01638; 36415; 64415; 73030; 76942; 82565; 82962; 84132; 84295; 84520; 85027; 94761; 97116; 97161; 97165; 97535; 99100; G0378; A9270; C1713; C1776; J0690; J1100; J2250; J2370; J2405; J2704; J2795; J3010; J7120

== ENCOUNTER 2022-04-05 16:12 | Outpatient (CLI) | payer OTHER, SELFPAY | END 2022-04-05 16:13 | disposition home or self-care (01) | LOC: LKVREF 16:13 | PROVIDERS: PCP Family Medicine; Visit Provider Nurse Practitioner Family | DX: M54.9 Dorsalgia, unspecified (principal) | CPT/HCPCS: 87086 ==

== ENCOUNTER 2022-04-18 19:23 | Emergency (ER) | payer OTHER, SELFPAY ==
[2022-04-18 19:29] VITALS: BP 154/85; PULSE 74; RESP 16; TEMP 36.4; O2SAT 98; BMI 39.1
[2022-04-18 19:44] VITALS: PULSE 70; O2SAT 96
[2022-04-18 19:45] VITALS: PULSE 72; O2SAT 97
--- NOTE | 2022-04-18 20:10 | ED.ARRPALP ---
HPI - Arrhythmia/Palpitations General Chief Complaint: Arrhythmia/Palpitations Stated Complaint: AFIB Time Seen by Provider: 04/18/22 19:35 History of Present Illness HPI narrative: This 76-year-old male comes in with concern that he might have gone into atrial fibrillation. He did feel some palpitations and used a card that he bought that supposedly can identify rhythms by placing his fingers on it. This card stated that he was in atrial fibrillation. The patient has a history of atrial fibrillation but is taking metoprolol and an anticoagulant and has been in normal sinus rhythm. He states that he feels fine. He does not report any chest pain, shortness of breath, lightheadedness, nausea, vomiting, diaphoresis, or exercise intolerance. He arrives here and vital signs are normal with normal heart rate and blood pressure. His EKG initially also shows normal sinus rhythm with 1st degree AV block. Related Data Home Medications Medication Instructions Recorded Confirmed clotrimazole 1 % topical cream 1 applic topical Q12H PRN 08/04/21 04/09/22 fluorouracil 5 % topical cream 5 applic topical .One Day Per Week 08/04/21 04/09/22 fluticasone propionate 50 1 spray intranasal HS PRN 08/04/21 04/09/22 mcg/actuation nasal spray,suspension psyllium husk 3.4 gram/5.4 gram 2 tsp PO BID 08/04/21 04/09/22 oral powder acetaminophen 650 mg 650 mg PO TID 09/01/21 04/09/22 tablet,extended release albuterol sulfate 90 mcg/actuation 1 puff inhalation Q4H PRN 10/28/21 04/09/22 aerosol inhaler apixaban 5 mg tablet 5 mg PO BID 10/28/21 04/09/22 cetirizine 10 mg tablet 10 mg PO HS 10/28/21 04/09/22 magnesium oxide 250 mg PO .Bedtime 10/28/21 04/09/22 melatonin 5 mg capsule 5 mg PO .Bedtime 10/28/21 04/09/22 potassium chloride 10 mEq 10 meq PO DAILY 10/28/21 04/09/22 capsule,extended release propafenone 225 mg tablet 225 mg PO TID 10/28/21 04/09/22 vit A 7,160 unit-vit C 113 mg-vit 1 tab PO DAILY 10/28/21 04/09/22 E-zinc [id number] 1 mg tablet ([facility]) cholestyramine (with sugar) 4 gram 4 g PO DAILY PRN 02/22/22 04/09/22 oral powder ezetimibe 10 mg tablet 10 mg PO HS 02/22/22 04/09/22 metoprolol succinate 100 mg 100 mg PO HS 02/22/22 04/09/22 tablet,extended release 24 hr tamsulosin 0.4 mg capsule 0.4 mg PO HS 02/22/22 04/09/22 propafenone 225 mg 225 mg PO TID 04/09/22 04/09/22 capsule,extended release 12 hr Previous Rx's Medication Instructions Recorded triamcinolone acetonide 0.1 % 1 applic topical BID PRN rash #80 11/24/21 topical cream grams coenzyme Q10 100 mg capsule 100 mg PO BID #60 caps 12/14/21 omega-3 fatty acids-fish oil 300 1 cap PO DAILY #90 caps 12/14/21 mg-500 mg capsule (Fish Oil) Foot Orthotics #1 ea 12/17/21 amoxicillin 500 mg capsule 2,000 mg PO ONCE #4 caps 01/21/22 ketoconazole 2 % topical cream 1 applic topical .uh #30 grams 02/16/22 oxycodone 5 mg tablet 2.5 - 5 mg PO Q4-6H PRN pain #42 02/24/22 tabs clotrimazole-betamethasone 1 1 applic topical Q12H PRN rash #45 03/15/22 %-0.05 % topical cream grams amlodipine 10 mg tablet 10 mg PO DAILY #90 tabs 03/22/22 losartan 100 1 tab PO DAILY #90 tabs 03/22/22 mg-hydrochlorothiazide 25 mg tablet omeprazole 20 mg capsule,delayed 20 mg PO DAILY #90 caps 03/22/22 release Allergies Allergy/AdvReac Type Severity Reaction Status Date / Time benazepril Allergy Cough Verified 04/09/22 10:25 pravastatin AdvReac Unknown Muscle Verified 04/09/22 10:25 aches Review of Systems Status of ROS: Reports: 10 or more systems reviewed and unremarkable except as noted in History and below Narrative: Constitutional: No fevers, no weight gain or loss. Eyes: No discharge. No vision changes. HENT: No congestion, no sore throat, no ear pain. Cardiovascular: No chest pain. Respiratory: No shortness of breath, no wheezes, no cough. Gastrointestinal: No abdominal pain, no vomiting, no diarrhea. Genitourinary: No dysuria, no hematuria. Musculoskeletal: Normal range of motion. Skin: No rashes, no pruritis. Neurological: No dizziness, weakness, sensory change, speech change. Endo/Heme/Allergies: No bruising or bleeding. No polydipsia. Pysch: no suicidality, no anxiety, no insomnia. All other systems reviewed and are negative. [facility] Medical History , RN) Anemia Iron deficiency anemia Obstructive sleep apnea treated with continuous positive airway pressure (CPAP) Onychomycosis Osteoarthritis, shoulder Surgical History , RN) Cataract extraction status of eye History of bursectomy History of colonoscopy with polypectomy (05/26/21) History of inguinal hernia repair History of thyroidectomy History of tonsillectomy 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) History of umbilical hernia repair Hx of total knee arthroplasty (08/25/20) Status post inguinal ligation of varicocele 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) Family History , RN) Father Dementia Social History Smoking Status: Never smoker How often do you have a drink containing alcohol: never AUDIT-C Alcohol total score: 0 Non-prescribed substance use: denies use Caffeine: Yes (Coffee 1 cup/day) service: Yes Exam Narrative: Exam Narrative: Constitutional: Well-developed, well-nourished, no acute distress. HEENT: Normocephalic, atraumatic. Neck: Normal range of motion. Nontender. Supple. Heart: Regular. No murmurs. Normal rate. Intact distal pulses. Lungs: Clear to auscultation. No chest discomfort. No wheezes, rhonchi, or rales. Abdomen: Normal bowel sounds. Nontender. No rebound tenderness. Genitalia: Deferred. Back: No midline tenderness. Normal range of motion. Extremities: Normal range of motion. No injury. Skin: Intact. No rash. Warm. No erythema or pallor. Neurologic: No altered sensation. No weakness. Alert and oriented. Psychiatric: No suicidality. No anxiety or depression. No insomnia. Nursing notes and vitals signs are reviewed. Const: Vital Signs, click to edit/add: Vital Signs - 24 hr 04/18/22 19:29 04/18/22 19:44 04/18/22 19:45 Temperature 97.6 F Pulse Rate 70 72 Pulse Rate [Right Pulse Oximeter] 74 Respiratory Rate 16 Blood Pressure [Le ft Upper Arm] 154/85 H Pulse Oximetry 98 96 97 Oxygen Delivery Me thod Room Air Course Vital Signs Vital signs: Initial Vital Signs Temperature 97.6 F 04/18/22 19:29 Temperature Source Temporal Artery Scan 04/18/22 19:29 Pulse Rate 74 04/18/22 19:29 Pulse Rhythm 04/18/22 19:29 Respiratory Rate 16 04/18/22 19:29 Blood Pressure 154/85 H 04/18/22 19:29 Blood Pressure Mean 108 04/18/22 19:29 Pulse Oximetry 98 04/18/22 19:29 Oxygen Delivery Method 04/18/22 19:29 Vital Signs Temperature 97.6 F 04/18/22 19:29 Pulse Rate 74 04/18/22 19:29 Respiratory Rate 16 04/18/22 19:29 Blood Pressure 154/85 H 04/18/22 19:29 Pulse Oximetry 98 04/18/22 19:29 Oxygen Delivery Method 04/18/22 19:29 Temperature 97.6 F 04/18/22 19:29 Pulse Rate 72 04/18/22 19:45 Respiratory Rate 16 04/18/22 19:29 Blood Pressure 154/85 H 04/18/22 19:29 Pulse Oximetry 97 04/18/22 19:45 Oxygen Delivery Method 04/18/22 19:29 MDM - Arrhythmia/Palpitations MDM Narrative Medical decision making narrative: This patient comes in because his monitoring tech device told him he had atrial fibrillation. He is not in atrial fibrillation according to EKG and monitor readings. The patient feels normal. I explained that this type of device is not capable of accurately identifying atrial fibrillation or distinguishing it from PVCs or PACs. Furthermore he has additional protection in that he is taking rate-controlling medicines and anticoagulants for treatment if he were to go into atrial fibrillation. The patient is satisfied with this and is okay to return home. He can continue his current plans. ECG Data Attestation: I personally reviewed and interpreted this ECG as follows: Interpretation: Normal sinus rhythm. Rate is 75 beats per minute. There are no ST or T-wave abnormalities. Discharge Plan Discharge Clinical Impression: Palpitations Patient Disposition: Home, Self-Care Condition: Stable Additional Instructions: Continue current plans. Follow up with MD or return if worsening symptoms happen. Prescriptions: No Action psyllium husk 3.4 gram/5.4 gram powder 2 tsp PO BID clotrimazole 1 % cream 1 applic topical Q12H PRN fluticasone propionate 50 mcg/actuation spray,suspension 1 spray intranasal HS PRN fluorouracil 5 % cream 5 applic topical .One Day Per Week acetaminophen 650 mg tablet extended release 650 mg PO TID melatonin 5 mg capsule 5 mg PO .Bedtime magnesium oxide 250 mg magnesium tablet 250 mg PO .Bedtime cetirizine 10 mg tablet 10 mg PO HS [facility] 7,160 unit- 113 mg-1 mg tablet 1 tab PO DAILY Rx Instructions: administer with a meal apixaban 5 mg tablet 5 mg PO BID albuterol sulfate 90 mcg/actuation HFA aerosol inhaler 1 puff inhalation Q4H PRN propafenone 225 mg tablet 225 mg PO TID potassium chloride 10 mEq capsule, extended release 10 meq PO DAILY coenzyme Q10 100 mg capsule 100 mg PO BID Qty: 60 3RF Fish Oil 300-500 mg capsule 1 cap PO DAILY Qty: 90 3RF ketoconazole 2 % cream 1 applic topical . Qty: 30 1RF Rx Instructions: Apply topically to affected area three to 4 days weekly propafenone 225 mg capsule,extended release 12 hr 225 mg PO TID metoprolol succinate 100 mg tablet extended release 24 hr 100 mg PO HS tamsulosin 0.4 mg capsule 0.4 mg PO HS ezetimibe 10 mg tablet 10 mg PO HS Rx Instructions: TAKE 1 TABLET EVERY DAY cholestyramine (with sugar) 4 gram powder 4 g PO DAILY PRN Rx Instructions: administer w/meal; avoid other meds within 1hr before or 4-6hr after dose oxycodone 5 mg tablet 2.5 - 5 mg PO Q4-6H MDD 6 PRN (Reason: pain) Qty: 42 0RF Rx Instructions: Take as needed for postop pain: 2.5mg mild pain, 5mg moderate-severe pain; wean as tolerated. triamcinolone acetonide 0.1 % cream 1 applic topical BID PRN (Reason: rash) Qty: 80 1RF (DME) Foot Orthotics Misc See Rx Instructions .Route Qty: 1 0RF Rx Instructions: Diabetic shoes amoxicillin 500 mg capsule 2,000 mg PO ONCE Qty: 4 3RF Rx Instructions: Take 4 capsules (2000mg) 1 hour prior to dental appointment. clotrimazole-betamethasone 1-0.05 % cream 1 applic TOPICAL Q12H PRN (Reason: rash) Qty: 45 3RF amlodipine 10 mg tablet 10 mg PO DAILY Qty: 90 3RF losartan-hydrochlorothiazide 100-25 mg tablet 1 tab PO DAILY Qty: 90 3RF omeprazole 20 mg capsule,delayed release(DR/EC) 20 mg PO DAILY Qty: 90 3RF Follow Up/Referrals: Lorene Maher DO [Primary Care Provider] - Stand Alone Forms: [employer] Info Instructions
== END 2022-04-18 20:21 | disposition home or self-care (01) ==
PROVIDERS: Emergency Provider Emergency Medicine Emergency Medical Services; PCP Family Medicine
DX: R00.2 Palpitations (principal)
CPT/HCPCS: 93005; 94761; 99283; 99284

== ENCOUNTER 2022-09-13 13:44 | Outpatient (CLI) | payer OTHER, SELFPAY | END 2022-09-13 13:45 | disposition home or self-care (01) | LOC: NFLDREF 09-15 13:42 | PROVIDERS: PCP Family Medicine; Referring Provider Family Medicine; Visit Provider Family Medicine | DX: E87.1 Hypo-osmolality and hyponatremia (principal) | CPT/HCPCS: 80048; 84300 ==

== ENCOUNTER 2022-09-24 11:08 | Outpatient (CLI) | payer OTHER, SELFPAY | END 2022-09-24 11:09 | disposition home or self-care (01) | LOC: NFLDREF 09-27 11:23 | PROVIDERS: PCP Family Medicine; Referring Provider Family Medicine; Visit Provider Family Medicine | DX: R19.7 Diarrhea, unspecified (principal) | CPT/HCPCS: 87045; 87046; 87427; 87493 ==

== ENCOUNTER 2022-10-25 13:55 | Outpatient (CLI) | payer OTHER, SELFPAY | END 2022-10-25 13:56 | disposition home or self-care (01) | PROVIDERS: PCP Family Medicine; Visit Provider Family Medicine | DX: R79.89 Other specified abnormal findings of blood chemistry (principal); D64.9 Anemia, unspecified; E87.1 Hypo-osmolality and hyponatremia | CPT/HCPCS: 82784; 86141; 86364 ==

== ENCOUNTER 2022-11-12 13:15 | Outpatient (CLI) | payer OTHER, SELFPAY | END 2022-11-12 13:16 | disposition home or self-care (01) | LOC: NFLDREF 11-17 12:00 | PROVIDERS: PCP Family Medicine; Referring Provider Family Medicine; Visit Provider Family Medicine | DX: R19.7 Diarrhea, unspecified (principal) | CPT/HCPCS: 87505 ==

== ENCOUNTER 2023-03-23 10:30 | Outpatient (CLI) | payer OTHER, SELFPAY ==
--- OUTSIDE RECORDS SUMMARY | 2023-03-23 10:35 | XMS_ITS | Continuity of Care Document ---
Author Name [facility] Organization [facility] Care Team Providers Care Hardener Helper Name Role Phone [facility] Unavailable Unavailable Problems Combined list of problems from Department of Defense and Veterans [facility] facilities. It does not include entries that were removed or entered in error. Problem Status Onset Date Problem Type Date of Resolution Comments Source COVID-19 Active 01/08/20 21 Condition [facility] AF - Atrial Fibrillation ([facility] [id number]) Active Condition May 28, 2021 Entered By: GENE LAYTON Comment: Managed with Metoprolol, Propafenone and Apixaban [facility] ascending aorta dilation Active Condition Jul 10, 2021 Entered By: GENE LAYTON Comment: aortic sinus 4.2cm and asc aorta 4.4 cmMay 2022 Entered By: GENE LAYTON Comment: 08/19/21 stress test at [facility] Myocardial perfusion was normal. [facility] Asthma ([facility] [id number]) Active Condition [facility] Benign Prostatic Hypertrophy with Outflow Obstruction ([facility] [id number]) Active Condition [facility] Body mass index 30+ - obesity Active Condition [facility] Diabetes Mellitus Type 2 ([facility] [id number]) Active Condition [facility] ECG: premature ventricular contractions Active Condition June 22, 2022 Entered By: GENE LAYTON Comment: EXTENDED HOLTER 05/17/22 AT [facility] 2022 Entered By: GENE LAYTON Comment: SHOWS 11 episodes of SVT upto 17beats, avg HR 71 NO AFIB SEEN [facility] Environmental allergy Active Condition [facility] Family social history Active Condition May 28, 2021 Entered By: GENE LAYTON Comment: NEVER SMOKED TOBACCOApr 2021 Entered By: GENE LAYTON Comment: Parents smokedApr 2021 Entered By: GENE LAYTON Comment: [employer]/4 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 communication 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 2021 Entered By: GENE LAYTON Comment: 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, 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, 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 [employer]Apr 2021 Entered By: GENE LAYTON Comment: Lives with (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)May 28, 2021 Entered By: GENE LAYTON Comment: 1 biological Daughter ([place]) and 1 adopted daughter(in [place])May 28, 2021 Entered By: GENE LAYTON Comment: NO ALCOHOL USE NOW, Last drink 25 yrs agoApr 2021 Entered By: GENE LAYTON Comment: older Sister has Myelofibrosis and non hodjkins lymphomaApr 2021 Entered By: GENE LAYTON Comment: younger sister is healthy [facility] [place] [place] GERD - Gastro-Esophageal Reflux Disease ([facility] [id number]) Active Condition [facility] [place] [place] H/O: surgery Active Condition May 28, 2021 Entered By: GENE LAYTON Comment: s/p B/L knee replacement 08/2020 and 1Apr 2021 Entered By: GENE LAYTON Comment: s/p tonsillectomyApr 2021 Entered By: GENE LAYTON Comment: s/p Left inguinal hernia at age 4Apr 2021 Entered By: GENE LAYTON Comment: s/p Inguinal hernia repair at age 10Apr 2021 Entered By: GENE LAYTON Comment: s/p omphalocele repairApr 2021 Entered By: GENE LAYTON Comment: s/p lipoma resectionApr 2021 Entered By: GENE LAYTON Comment: s/p partial left thyroidectomy, 1981, [facility] [place] [place] History of polyp of colon Active Condition May 28, 2021 Entered By: GENE LAYTON Comment: S/P Colonosocpy 05/26/21. 2 polyps removed at [facility] HTN - Hypertension ([facility] [id number]) Active Condition [facility] [place] [place] Hyperlipidemia ([facility] [id number]) Active Condition [facility] [place] [place] Iron deficiency Active Condition May 28, 2021 Entered By: GENE LAYTON Comment: ON IRON SINCE 12/2020 anemia after knee replacements and colon polyp resection 05/2021 [facility] Long-term Current Use of Anticoagulant ([facility] [id number]) Active Condition June 22, 2022 Entered By: GENE LAYTON Comment: on APIXABAN FOR AFIB [facility] OA - Osteoarthritis ([facility] [id number]) Active Condition [facility] Obstructive sleep apnea of adult Active Condition June 22, 2022 Entered By: GENE LAYTON Comment: uses CPAP, HAS A NEW FACE MASK, HAS BEEN COMPLIANT WITH CPAPMay 2022 Entered By: GENE LAYTON Comment: [facility] compliance report from 02/06/22 to 05/06/22May 2022 Entered By: GENE LAYTON Comment: Dreams and kicking in dreams is better with new face mask [facility] Respiratory syncytial virus infection Active Condition Feb 24, 2023 Entered By: GENE LAYTON Comment: Cold agglutinin is suspected and Vet is anticoagulated [facility] Thyroid nodule Active Condition Marquise 0 2021 Entered By: GENE LAYTON Comment: noted on faxed recs-see scanned recs for detailsJun 2021 Entered By: GENE LAYTON Comment: s/p partial thyroidectomy [facility] Diagnosis: ICD-10-CM Z00.01 Encounter for general adult medical exam w abnormal findings Active Diagnosis [facility] Medications Combined list of outpatient medications from 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Medications provided include 1) outpatient medications from the last 15 months, and 2) patient-reported medications. Medication Details Route Status Patient Instructions Prescription Expires Prescription Number Last Dispense Date Ordering Provider Order Date Source ACETAMINOPH EN 325MG TAB TAKE TWO TABLETS BY MOUTH THREE TIMES A DAY ORALLY ACTIVE AIMEE LAYTON 2022 [facility] ALBUTEROL 90MCG/ACTUA T (CFC-F) INHL,ORAL,8 .5GM DOSE COUNTER INHALE 2 PUFFS BY INHALATI ON THREE TIMES A DAY NEEDED FOR IMMEDIAT E RELIEF OF SHORTNES S OF BREATH *SHAKE WELL* INHALA TION ACTIVE 06/23/2023 [id number] AIMEE LAYTON 2022 [facility] AMLODIPINE BESYLATE 10MG TAB TAKE ONE TABLET BY MOUTH EVERY DAY ORALLY ACTIVE LAYTONAIMEE 2021 [facility] APIXABAN 5MG TAB TAKE ONE TABLET BY MOUTH EVERY 12 HOURS TO PREVENT BLOOD CLOTS, STROKE FROM ATRIAL FIBRILLA TION ORALLY ACTIVE 07/14/2023 [id number] Gabriel MORA INAFilomena 2022 [employer] [facility] [employer] APIXAB[facility] 5MG TAB TAKE ONE TABLET BY MOUTH EVERY 12 HOURS TO PREVENT BLOOD CLOTS, STROKE FROM ATRIAL FIBRILLA TION ORALLY DISCONT INUED 06/16/2022 [id number] HAILE TILLEY 2021 [place] [facility] EZETIMIBE 10MG TAB TAKE ONE TABLET BY MOUTH EVERY DAY ORALLY ACTIVE LAYTONAIMEE 2021 [facility] FLUTICASONE PROPIONATE 50MCG/SPRAY SOLN,NASAL, 16GM SPRAY 1 SPRAY IN EACH NOSTRIL AT BEDTIME NEEDED NASAL ACTIVE CALINAIMEE ALAN 2021 [facility] MAGNESIUM OXIDE 140MG CAP TAKE 2 CAPSULES BY MOUTH EVERY DAY ORALLY ACTIVE LAYTONAIMEE CT 2021 [facility] MELATONIN CAP/TAB TAKE 5MG BY MOUTH AT BEDTIME ORALLY ACTIVE LAYTONAIMEE 2021 [facility] METFORMIN HCL 1000MG TAB TAKE ONE-HALF TABLET BY MOUTH THREE TIMES A DAY ORALLY ACTIVE LAYTONAIMEE 2021 [facility] METOPROLOL SUCCINATE 100MG TAB,SA TAKE ONE TABLET BY MOUTH EVERY DAY ORALLY ACTIVE LAYTONAIMEE 2022 [facility] MULTIVITAMI NS CAP/TAB TAKE ONE TABLET BY MOUTH EVERY DAY ORALLY ACTIVE CALINAIMEE CT 2021 [facility] NON VA MED NOT LISTED USE LOSARTAN /HCTZ 100-25MG MOUTH EVERY DAY ORALLY ACTIVE LAYTONAIMEE CT 2021 [facility] NON VA MED NOT LISTED USE IRON WITH VITAMIN C 65MG 1 EVERY OTHER DAY MOUTH EVERY OTHER DAY ORALLY ACTIVE CALINAIMEE CT 2021 [facility] NON VA MED NOT LISTED USE ZERTEC 10MG TABLET MOUTH AT BEDTIME ORALLY ACTIVE AIMEE LAYTON 2021 [facility] NON VA MED NOT LISTED USE MACUHEAL TH 1 SOFTGEL MOUTH EVERY DAY ORALLY ACTIVE AIMEE LAYTON S 2021 [facility] OMEPRAZOLE 20MG CAP,EC TAKE 1 CAPSULE BY MOUTH EVERY DAY ORALLY ACTIVE AIMEE LAYTON 2021 [facility] POTASSIUM CHLORIDE 10MEQ TAB,SA TAKE ONE TABLET BY MOUTH EVERY DAY ORALLY ACTIVE AIMEE LAYTON S 2021 [facility] PROPAFENONE HCL 150MG TAB TAKE ONE AND ONE-HALF TABLETS BY MOUTH THREE TIMES A DAY FOR ATRIAL FIBRILLA TION ORALLY ACTIVE 01/06/2024 [id number] AIMEE LAYTON 2022 [facility] PROPAFENONE HCL 150MG TAB TAKE ONE AND ONE-HALF TABLETS BY MOUTH THREE TIMES A DAY FOR ATRIAL FIBRILLA TION ORALLY DISCONT INUED (EDIT) 08/14/2023 [id number] AIMEE LAYTON 2022 [facility] PROPAFENONE HCL 150MG TAB TAKE ONE AND ONE-HALF TABLETS BY MOUTH THREE TIMES A DAY FOR ATRIAL FIBRILLA TION ORALLY DISCONT INUED 08/12/2022 [id number] AIMEE LAYTON 2021 [facility] TAMSULOSIN HCL 0.4MG CAP TAKE 1 CAPSULE BY MOUTH AT BEDTIME ORALLY ACTIVE AIMEE LAYTON 2021 [facility] Allergies, Adverse Reactions, Alerts Combined list of allergies from 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 It does not include entries that were removed or entered in error. Substance Category Reaction Severity Reaction type Status Date Reported Comments Source PRAVASTATIN Propensity to adverse reactions to drug (finding) Pain in lower limb active 2 [facility] Immunizations Combined list of available immunizations from the 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 Immunization Series Date Given Administered By Site Reaction Lot Number CVX Code Drug Facilities Technician Status Comments Source COVID-19 (CATASYS), MRNA, LNP-S, BIVALENT BOOSTER, PF, 30 MCG/0.3 ML DOSE 4 2022 DILIAWILL BLACK RIGHT DELTO ID [id number] 300 complet ed [facility] COVID-19 (PFIZER), MRNA, LNP-S, PF, 30 MCG/0.3 ML DOSE 3 2021 208 complet ed [facility] TDAP 2020 115 complet ed [facility] COVID-19 (PFIZER), MRNA, LNP-S, PF, 30 MCG/0.3 ML DOSE 2 2020 208 complet ed [facility] COVID-19 (PFIZER), MRNA, LNP-S, PF, 30 MCG/0.3 ML DOSE 1 2020 208 complet ed [facility] ZOSTER RECOMBINANT 2 2018 187 complet ed [facility] PNEUMOCOCCAL CONJUGATE PCV 13 2017 133 complet ed [facility] ZOSTER RECOMBINANT 1 2017 187 complet ed [facility] PNEUMOCOCCAL POLYSACCHARID E PPV23 2014 33 complet ed [facility] Results Combined list of recent chemistry, hematology and other laboratory results from Department of Defense and Veterans Affairs, ranging from 15 months to all on record, depending upon the facility. Order Name Results Value Reference Range Date Interpretation Specimen Comments Source CBC LEUKOCYTES [#/VOLUME] IN BLOOD BY AUTOMATED COUNT 9.15 4.0 - 11.0 02/22 Specimen Type: BLOOD Comment: Corrected result reported to: YOBANY DE LA CRUZ 02-23-23 @ 1338/[facility]. RBC reported incorrectly as 3.80 by [[id number] 18]. Changed to 4.35 on Feb 23, 2023@13:39 by [[id number] 8]. HCT reported incorrectly as 32.4 by [[id number] 18]. Changed to 37.2 on Feb 23, 2023@13:39 by [[id number] 8]. MCH reported incorrectly as 31.8 by [[id number] 18]. Changed to 27.8 on Feb 23, 2023@13:39 by [[id number] 8]. MCHC reported incorrectly as 37.3 by [[id number] 18]. Changed to 32.5 on Feb 23, 2023@13:39 by [[id number] 8]. Ordering Provider: CLARE MOHR Report Released Date/Time: Feb 09, 2023 03:07 PM Reporting Lab: [facility] [address] Performing Lab: [facility] [address] [facility] CBC ERYTHROCYTE S [#/VOLUME] IN BLOOD BY AUTOMATED COUNT 4.35 4.6 - 6.2 02/22 L Specimen Type: BLOOD Comment: Corrected result reported to: YOBANY DE LA CRUZ 02-23-23 @ 1338/[facility]. RBC reported incorrectly as 3.80 by [[id number] 18]. Changed to 4.35 on Feb 23, 2023@13:39 by [[id number] 8]. HCT reported incorrectly as 32.4 by [[id number] 18]. Changed to 37.2 on Feb 23, 2023@13:39 by [[id number] 8]. MCH reported incorrectly as 31.8 by [[id number] 18]. Changed to 27.8 on Feb 23, 2023@13:39 by [[id number] 8]. MCHC reported incorrectly as 37.3 by [[id number] 18]. Changed to 32.5 on Feb 23, 2023@13:39 by [[id number] 8]. Ordering Provider: CLARE MOHR Report Released Date/Time: Feb 09, 2023 03:07 PM Reporting Lab: [facility] [address] Performing Lab: [facility] [address] [facility] CBC HEMOGLOBIN [MASS/VOLUM E] IN BLOOD 12.1 13.5 - 17.9 02/22 L Specimen Type: BLOOD Comment: Corrected result reported to: YOBANY DE LA CRUZ 02-23-23 @ 1338/[facility]. RBC reported incorrectly as 3.80 by [[id number] 18]. Changed to 4.35 on Feb 23, 2023@13:39 by [[id number] 8]. HCT reported incorrectly as 32.4 by [[id number] 18]. Changed to 37.2 on Feb 23, 2023@13:39 by [[id number] 8]. MCH reported incorrectly as 31.8 by [[id number] 18]. Changed to 27.8 on Feb 23, 2023@13:39 by [[id number] 8]. MCHC reported incorrectly as 37.3 by [[id number] 18]. Changed to 32.5 on Feb 23, 2023@13:39 by [[id number] 8]. Ordering Provider: CLARE MOHR Report Released Date/Time: Feb 09, 2023 03:07 PM Reporting Lab: [facility] [address] Performing Lab: [facility] [address] [facility] CBC HEMATOCRIT [VOLUME FRACTION] OF BLOOD BY AUTOMATED COUNT 37.2 41 - 54 02/22 L Specimen Type: BLOOD Comment: Corrected result reported to: YOBANY DOROTHY 02-23-23 @ [facility]. RBC reported incorrectly as 3.80 by [[id number] 18]. Changed to 4.35 on Feb 23, 2023@13:39 by [[id number] 8]. HCT reported incorrectly as 32.4 by [[id number] 18]. Changed to 37.2 on Feb 23, 2023@13:39 by [[id number] 8]. MCH reported incorrectly as 31.8 by [[id number] 18]. Changed to 27.8 on Feb 23, 2023@13:39 by [[id number] 8]. MCHC reported incorrectly as 37.3 by [[id number] 18]. Changed to 32.5 on Feb 23, 2023@13:39 by [[id number] 8]. Ordering Provider: CLARE MOHR Report Released Date/Time: Feb 09, 2023 03:07 PM Reporting Lab: [facility] [address] Performing Lab: [facility] [address] [facility] CBC MCV [ENTITIC VOLUME] BY AUTOMATED COUNT 85.3 80 - 100 02/22 Specimen Type: BLOOD Comment: Corrected result reported to: YOBANY DE LA CRUZ 02-23-23 @ 1338/[facility]. RBC reported incorrectly as 3.80 by [[id number] 18]. Changed to 4.35 on Feb 23, 2023@13:39 by [[id number] 8]. HCT reported incorrectly as 32.4 by [[id number] 18]. Changed to 37.2 on Feb 23, 2023@13:39 by [[id number] 8]. MCH reported incorrectly as 31.8 by [[id number] 18]. Changed to 27.8 on Feb 23, 2023@13:39 by [[id number] 8]. MCHC reported incorrectly as 37.3 by [[id number] 18]. Changed to 32.5 on Feb 23, 2023@13:39 by [[id number] 8]. Ordering Provider: CLARE MOHR Report Released Date/Time: Feb 09, 2023 03:07 PM Reporting Lab: [facility] [address] Performing Lab: [facility] [address] [place] [facility] CBC MCH [ENTITIC MASS] BY AUTOMATED COUNT 27.8 27 - 33 02/22 Specimen Type: BLOOD Comment: Corrected result reported to: YOBANY DE LA CRUZ 02-23-23 @ 1338/[facility]. RBC reported incorrectly as 3.80 by [[id number] 18]. Changed to 4.35 on Feb 23, 2023@13:39 by [[id number] 8]. HCT reported incorrectly as 32.4 by [[id number] 18]. Changed to 37.2 on Feb 23, 2023@13:39 by [[id number] 8]. MCH reported incorrectly as 31.8 by [[id number] 18]. Changed to 27.8 on Feb 23, 2023@13:39 by [[id number] 8]. MCHC reported incorrectly as 37.3 by [[id number] 18]. Changed to 32.5 on Feb 23, 2023@13:39 by [[id number] 8]. Ordering Provider: CLARE MOHR Report Released Date/Time: Feb 09, 2023 03:07 PM Reporting Lab: [facility] [address] Performing Lab: [facility] [address] [facility] CBC MCHC [MASS/VOLUM E] BY AUTOMATED COUNT 32.5 32.0 - 37.5 02/22 Specimen Type: BLOOD Comment: Corrected result reported to: YOBANY DOROTHY 02-23-23 @ 1338/[facility]. RBC reported incorrectly as 3.80 by [[id number] 18]. Changed to 4.35 on Feb 23, 2023@13:39 by [[id number] 8]. HCT reported incorrectly as 32.4 by [[id number] 18]. Changed to 37.2 on Feb 23, 2023@13:39 by [[id number] 8]. MCH reported incorrectly as 31.8 by [[id number] 18]. Changed to 27.8 on Feb 23, 2023@13:39 by [[id number] 8]. MCHC reported incorrectly as 37.3 by [[id number] 18]. Changed to 32.5 on Feb 23, 2023@13:39 by [[id number] 8]. Ordering Provider: CLARE MOHR Report Released Date/Time: Feb 09, 2023 03:07 PM Reporting Lab: [facility] [address] Performing Lab: [facility] [address] [facility] CBC PLATELETS [#/VOLUME] IN BLOOD BY AUTOMATED COUNT 314 150 - 400 02/22 Specimen Type: BLOOD Comment: Corrected result reported to: YOBANY DE LA CRUZ 02-23-23 @ 1338/[facility]. RBC reported incorrectly as 3.80 by [[id number] 18]. Changed to 4.35 on Feb 23, 2023@13:39 by [[id number] 8]. HCT reported incorrectly as 32.4 by [[id number] 18]. Changed to 37.2 on Feb 23, 2023@13:39 by [[id number] 8]. MCH reported incorrectly as 31.8 by [[id number] 18]. Changed to 27.8 on Feb 23, 2023@13:39 by [[id number] 8]. MCHC reported incorrectly as 37.3 by [[id number] 18]. Changed to 32.5 on Feb 23, 2023@13:39 by [[id number] 8]. Ordering Provider: CLARE MOHR Report Released Date/Time: Feb 09, 2023 03:07 PM Reporting Lab: [facility] [address] Performing Lab: [facility] [address] [facility] CBC PLATELET MEAN VOLUME [ENTITIC VOLUME] IN BLOOD BY AUTOMATED COUNT 9.4 7.4 - 10.4 02/22 Specimen Type: BLOOD Comment: Corrected result reported to: YOBANY DE LA CRUZ 02-23-23 @ 1338/[facility]. RBC reported incorrectly as 3.80 by [[id number] 18]. Changed to 4.35 on Feb 23, 2023@13:39 by [[id number] 8]. HCT reported incorrectly as 32.4 by [[id number] 18]. Changed to 37.2 on Feb 23, 2023@13:39 by [[id number] 8]. MCH reported incorrectly as 31.8 by [[id number] 18]. Changed to 27.8 on Feb 23, 2023@13:39 by [[id number] 8]. MCHC reported incorrectly as 37.3 by [[id number] 18]. Changed to 32.5 on Feb 23, 2023@13:39 by [[id number] 8]. Ordering Provider: CLARE MOHR Report Released Date/Time: Feb 09, 2023 03:07 PM Reporting Lab: [facility] [address] Performing Lab: [facility] [address] [facility] CBC ERYTHROCYTE DISTRIBUTIO N WIDTH [RATIO] BY AUTOMATED COUNT 18.7 11.5 - 14.5 02/22 H Specimen Type: BLOOD Comment: Corrected result reported to: YOBANY DE LA CRUZ 02-23-23 @ 1338/[facility]. RBC reported incorrectly as 3.80 by [[id number] 18]. Changed to 4.35 on Feb 23, 2023@13:39 by [[id number] 8]. HCT reported incorrectly as 32.4 by [[id number] 18]. Changed to 37.2 on Feb 23, 2023@13:39 by [[id number] 8]. MCH reported incorrectly as 31.8 by [[id number] 18]. Changed to 27.8 on Feb 23, 2023@13:39 by [[id number] 8]. MCHC reported incorrectly as 37.3 by [[id number] 18]. Changed to 32.5 on Feb 23, 2023@13:39 by [[id number] 8]. Ordering Provider: CLARE MOHR Report Released Date/Time: Feb 09, 2023 03:07 PM Reporting Lab: [facility] [address] Performing Lab: [facility] [address] [place] [facility] CREATININ E(INCLUDE S EGFR) CREATININE [MASS/VOLUM E] IN SERUM OR PLASMA 0.8 0.7 - 1.2 02/22 Specimen Type: PLASMA No comment entered. Ordering Provider: CLARE MOHR Report Released Date/Time: Feb 09, 2023 03:07 PM Reporting Lab: [facility] [address] Performing Lab: [facility] [address] [place] [facility] CREATININ E(INCLUDE S EGFR) GLOMERULAR FILTRATION RATE/1.73 SQ M.PREDICTED [VOLUME RATE/AREA] IN SERUM, PLASMA OR BLOOD BY CREATININE- BASED FORMULA (CKD-EPI 2020) >90 60 02/22 Specimen Type: PLASMA No comment entered. Ordering Provider: CLARE MOHR Report Released Date/Time: Feb 09, 2023 03:07 PM Reporting Lab: [facility] [address] Performing Lab: [facility] [address] [place] [facility] AST/SGOT ASPARTATE AMINOTRANSF ERASE [ENZYMATIC ACTIVITY/VO LUME] IN SERUM OR PLASMA 39 <34 - 34 02/22 H Specimen Type: PLASMA No comment entered. Ordering Provider: CLARE MOHR Report Released Date/Time: Feb 09, 2023 03:07 PM Reporting Lab: [facility] [address] Performing Lab: [place] [address] [place] [facility] ALT/SGPT ALANINE AMINOTRANSF ERASE [ENZYMATIC ACTIVITY/VO LUME] IN SERUM OR PLASMA 54 <55 - 55 02/22 Specimen Type: PLASMA No comment entered. Ordering Provider: CLARE MOHR Report Released Date/Time: Feb 09, 2023 03:07 PM Reporting Lab: [facility] [address] Performing Lab: [facility] [address] [place] [facility] CBC LEUKOCYTES [#/VOLUME] IN BLOOD BY AUTOMATED COUNT 8.09 4.0 - 11.0 07/12 Specimen Type: BLOOD No comment entered. Ordering Provider: DANIEL BERNABE Report Released Date/Time: June 28, 2022 12:22 PM Reporting Lab: [facility] [address] Performing Lab: [facility] [address] [place] [facility] CBC ERYTHROCYTE S [#/VOLUME] IN BLOOD BY AUTOMATED COUNT 4.14 4.6 - 6.2 07/12 L Specimen Type: BLOOD No comment entered. Ordering Provider: DANIEL BERNABE Report Released Date/Time: June 28, 2022 12:22 PM Reporting Lab: [facility] [address] Performing Lab: [facility] [address] [place] [facility] CBC HEMOGLOBIN [MASS/VOLUM E] IN BLOOD 11.9 13.5 - 17.9 07/12 L Specimen Type: BLOOD No comment entered. Ordering Provider: DANIEL BERNABE Report Released Date/Time: June 28, 2022 12:22 PM Reporting Lab: [facility] [address] Performing Lab: [facility] [address] [place] [facility] CBC HEMATOCRIT [VOLUME FRACTION] OF BLOOD BY AUTOMATED COUNT 33.5 41 - 54 07/12 L Specimen Type: BLOOD No comment entered. Ordering Provider: DANIEL BERNABE Report Released Date/Time: June 28, 2022 12:22 PM Reporting Lab: [facility] [address] Performing Lab: [place] [address] [place] [facility] CBC MCV [ENTITIC VOLUME] BY AUTOMATED COUNT 80.9 80 - 100 07/12 Specimen Type: BLOOD No comment entered. Ordering Provider: DANIEL BERNABE Report Released Date/Time: June 28, 2022 12:22 PM Reporting Lab: [facility] [address] Performing Lab: [facility] [address] [place] [facility] CBC MCH [ENTITIC MASS] BY AUTOMATED COUNT 28.7 27 - 33 07/12 Specimen Type: BLOOD No comment entered. Ordering Provider: DANIEL BERNABE Report Released Date/Time: June 28, 2022 12:22 PM Reporting Lab: [facility] [address] Performing Lab: [facility] [address] [place] [facility] CBC MCHC [MASS/VOLUM E] BY AUTOMATED COUNT 35.5 32.0 - 37.5 07/12 Specimen Type: BLOOD No comment entered. Ordering Provider: DANIEL BERNABE Report Released Date/Time: June 28, 2022 12:22 PM Reporting Lab: [facility] [address] Performing Lab: [facility] [address] [place] [facility] CBC PLATELETS [#/VOLUME] IN BLOOD BY AUTOMATED COUNT 365 150 - 400 07/12 Specimen Type: BLOOD No comment entered. Ordering Provider: DANIEL BERNABE Report Released Date/Time: June 28, 2022 12:22 PM Reporting Lab: [facility] [id number] Performing Lab: [facility] [address] [place] [facility] PLATELET MEAN VOLUME [ENTITIC VOLUME] IN BLOOD BY AUTOMATED COUNT 9.3 7.4 - 10.4 07/12 Specimen Type: BLOOD No comment entered. Ordering Provider: DANIEL BERNABE Report Released Date/Time: June 28, 2022 12:22 PM Reporting Lab: [facility] [id number] Performing Lab: [facility] [address] [place] [facility] CBC ERYTHROCYTE DISTRIBUTIO N WIDTH [RATIO] BY AUTOMATED COUNT 19.2 11.5 - 14.5 07/12 H Specimen Type: BLOOD No comment entered. Ordering Provider: DANIEL BERNABE Report Released Date/Time: June 28, 2022 12:22 PM Reporting Lab: [facility] [address] Performing Lab: [facility] [address] [place] [facility] CREATININ E(INCLUDE S EGFR) CREATININE [MASS/VOLUM E] IN SERUM OR PLASMA 0.7 0.7 - 1.2 07/12 Specimen Type: PLASMA No comment entered. Ordering Provider: DANIEL BERNABE Report Released Date/Time: June 28, 2022 12:22 PM Reporting Lab: [facility] [address] Performing Lab: [facility] [address] [place] [facility] CREATININ E(INCLUDE S EGFR) GLOMERULAR FILTRATION RATE/1.73 SQ M.PREDICTED [VOLUME RATE/AREA] IN SERUM, PLASMA OR BLOOD BY CREATININE- BASED FORMULA (CKD-EPI 2020) >90 07/12 Specimen Type: PLASMA No comment entered. Ordering Provider: DANIEL BERNABE Report Released Date/Time: June 28, 2022 12:22 PM Reporting Lab: [facility] [address] Performing Lab: [facility] [address] [place] [facility] AST/SGOT ASPARTATE AMINOTRANSF ERASE [ENZYMATIC ACTIVITY/VO LUME] IN SERUM OR PLASMA 23 07/12 Specimen Type: PLASMA No comment entered. Ordering Provider: DANIEL BERNABE Report Released Date/Time: June 28, 2022 12:22 PM Reporting Lab: [facility] [address] Performing Lab: [facility] [address] [place] [facility] ALT/SGPT ALANINE AMINOTRANSF ERASE [ENZYMATIC ACTIVITY/VO LUME] IN SERUM OR PLASMA 32 06/05 /2023 Specimen Type: PLASMA No comment entered. Ordering Provider: DANIEL BERNABE Report Released Date/Time: June 28, 2022 12:22 PM Reporting Lab: [facility] [address] Performing Lab: [facility] [address] [place] [facility] MICROALBU MIN/CREAT ININE RATIO URINE CREATININE [MASS/VOLUM E] IN URINE 41.6 58.0 - 161.0 05/28 L Specimen Type: URINE Comment: Urine microalbumi n <5 mg/L, unable to calculate ratio Ordering Provider: GENE LAYTON Report Released Date/Time: May 28, 2021 12:16 PM Reporting Lab: [facility] [address] Performing Lab: [facility] [address] [facility] MICROALBU MIN/CREAT ININE RATIO URINE MICROALBUMI N/CREATININ E [MASS RATIO] IN URINE canc <29.9 - 29.9 05/28 Specimen Type: URINE Comment: Urine microalbumi n <5 mg/L, unable to calculate ratio Ordering Provider: GENE LAYTON Report Released Date/Time: May 28, 2021 12:16 PM Reporting Lab: [facility] [address] Performing Lab: [facility] [address] [facility] MICROALBU MIN/CREAT ININE RATIO URINE MICROALBUMI N [MASS/VOLUM E] IN URINE <5.0 <29.9 - 29.9 05/28 Specimen Type: URINE Comment: Urine microalbumi n <5 mg/L, unable to calculate ratio Ordering Provider: GENE LAYTON Report Released Date/Time: May 28, 2021 12:16 PM Reporting Lab: [facility] [address] Performing Lab: [facility] [address] [facility] BASIC METABOLIC PANEL+MG CREATININE [MASS/VOLUM E] IN SERUM OR PLASMA 0.7 0.7 - 1.2 05/28 Specimen Type: PLASMA No comment entered. Ordering Provider: GENE LAYTON Report Released Date/Time: May 28, 2021 12:16 PM Reporting Lab: [facility] [address] Performing Lab: [facility] [address] [facility] BASIC METABOLIC PANEL+MG UREA NITROGEN [MASS/VOLUM E] IN SERUM OR PLASMA 12 8 - 26 05/28 Specimen Type: PLASMA No comment entered. Ordering Provider: GENE LAYTON Report Released Date/Time: May 28, 2021 12:16 PM Reporting Lab: [facility] [address] Performing Lab: [facility] [address] [facility] BASIC METABOLIC PANEL+MG GLUCOSE [MASS/VOLUM E] IN SERUM OR PLASMA 103 74 - 100 05/28 H Specimen Type: PLASMA No comment entered. Ordering Provider: GENE LAYTON Report Released Date/Time: May 28, 2021 12:16 PM Reporting Lab: [facility] [address] Performing Lab: [facility] [address] [facility] BASIC METABOLIC PANEL+MG SODIUM [MOLES/VOLU ME] IN SERUM OR PLASMA 129 136 - 145 05/28 L Specimen Type: PLASMA No comment entered. Ordering Provider: GENE LAYTON Report Released Date/Time: May 28, 2021 12:16 PM Reporting Lab: [facility] [address] Performing Lab: [facility] [address] [facility] BASIC METABOLIC PANEL+MG POTASSIUM [MOLES/VOLU ME] IN SERUM OR PLASMA 3.7 3.5 - 5.1 05/28 Specimen Type: PLASMA No comment entered. Ordering Provider: GENE LAYTON Report Released Date/Time: May 28, 2021 12:16 PM Reporting Lab: [facility] [address] Performing Lab: [facility] [address] [facility] BASIC METABOLIC PANEL+MG CHLORIDE [MOLES/VOLU ME] IN SERUM OR PLASMA 93 98 - 107 05/28 L Specimen Type: PLASMA No comment entered. Ordering Provider: GENE LAYTON Report Released Date/Time: May 28, 2021 12:16 PM Reporting Lab: [facility] [address] Performing Lab: [facility] [address] [facility] BASIC METABOLIC PANEL+MG CARBON DIOXIDE, TOTAL [MOLES/VOLU ME] IN SERUM OR PLASMA 24 22 - 29 05/28 Specimen Type: PLASMA No comment entered. Ordering Provider: GENE LAYTON Report Released Date/Time: May 28, 2021 12:16 PM Reporting Lab: [facility] [address] Performing Lab: [facility] [address] [facility] BASIC METABOLIC PANEL+MG CALCIUM [MASS/VOLUM E] IN SERUM OR PLASMA 9.7 8.4 - 10.2 05/28 Specimen Type: PLASMA No comment entered. Ordering Provider: GENE LAYTON Report Released Date/Time: May 28, 2021 12:16 PM Reporting Lab: [facility] [address] Performing Lab: [facility] [address] [facility] BASIC METABOLIC PANEL+MG MAGNESIUM [MASS/VOLUM E] IN SERUM OR PLASMA 2.0 1.6 - 2.6 05/28 Specimen Type: PLASMA No comment entered. Ordering Provider: GENE LAYTON Report Released Date/Time: May 28, 2021 12:16 PM Reporting Lab: [facility] [address] Performing Lab: [facility] [address] [facility] BASIC METABOLIC PANEL+MG ANION GAP IN SERUM OR PLASMA 12 5 - 15 05/28 Specimen Type: PLASMA No comment entered. Ordering Provider: GENE LAYTON Report Released Date/Time: May 28, 2021 12:16 PM Reporting Lab: [facility] [address] Performing Lab: [facility] [address] [facility] BASIC METABOLIC PANEL+MG CREAT EGFR(CKD-EP I) >90 60 05/28 Specimen Type: PLASMA No comment entered. Ordering Provider: GENE LAYTON Report Released Date/Time: May 28, 2021 12:16 PM Reporting Lab: [facility] [address] Performing Lab: [facility] [address] [facility] Vital Signs Combined list of inpatient and outpatient Vital Signs from Department of [facility] and [facility], ranging from 12 months to all on record, depending upon the facility. Vital Sign Value Date Comments Source SYSTOLIC BLOOD PRESSURE 128 06/22/2022 13:16:04 [facility] DIASTOLIC BLOOD PRESSURE 78 06/22/2022 13:16:04 [facility] PULSE OXIMETRY 96% 06/22/2022 13:16:04 [facility] WEIGHT 279.5 06/22/2022 13:16:04 [facility] BMI 39kg/m2 06/22/2022 13:16:04 [facility] PAIN 0 06/22/2022 13:16:04 [facility] HEIGHT 71 06/22/2022 13:16:04 [facility] TEMPERATURE 97.1 06/22/2022 13:16:04 [facility] PULSE 64 06/22/2022 13:16:04 [facility] RESPIRATION 16 06/22/2022 13:16:04 [facility] Encounters Combined list of: 1) Encounters from [facility] facilities going back up to thelast 18 months. 2) Encounters from the Department of [facility] facilities going back up to 280 months. Location Location Details Encounter Type Encounter Number Reason For Visit Attending Provider ADM Date DC Date Status Disposition Source [facility] Outpatient Encounter [id number] 06/22 LORI YODER [facility] OFFICE O/P EST MOD 30-39 MIN [id number] Diagnos is: ICD-10- CM Z00.01 Encount er for general adult medical exam w abnorma l finding s
PATRICIA LAYTON 06/22 [facility] Outpatient Encounter [id number] OTF SHAW 06[facility]28 [place] [facility] [place] [facility] Outpatient Encounter [id number] 06/28 [place] [facility] [place] [facility] Outpatient Encounter [id number] 07/02 [place] [facility] [place] [facility] Outpatient Encounter [id number] 08/13 [place] [facility] [place] [facility] Outpatient Encounter [id number] 01/05 [place] [facility] [place] [facility] Outpatient Encounter [id number] 02/09 [place] [facility] [place] [facility] Outpatient Encounter [id number] JOSHUA SENIOR 02/21 [place] [facility] [place] [facility] Outpatient Encounter [id number] 02/24 [place] [facility] Social History Combined list of available smoking, tobacco, and other social history from 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 Social History Type Response Date Comment Sourc e Tobacco smoking status NHIS VA-TOBACCO NEVER USED 06/23/19 23 [facility] History of tobacco use [place]-TOBACCO NEVER USED 05/28/2021 [facility] Plan of Care List of future care activities from Department of 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 Additional future care activities may be listed in the Assessment and Plan section. Date/Time Care Activity Care Activity Detail Facili ty 03/29/2023 [facility]
--- OUTSIDE RECORDS SUMMARY | 2023-03-23 10:36 | XMS_ITS | Encounter Summary ---
Author Name [facility] Organization [facility] Address [address] [place] [address] Support Name Relationship Address Phone FLASH GARCIA Next of Kin [address] [place] [address] RADHAANDRAEAN Emergency Contact [address] [place] [address] CHANEL MACIAS Next of Kin [address] [place] [address] CHANEL MACIAS Emergency Contact [address] [place] [address] Insurance Providers: All historical and current Section Date Range: From patient's date of to the date document was created. This section includes the names of all active insurance providers for the patient. Insurance Provider Type of Coverage Plan Name Start of Policy Coverage End of Policy Coverage Group Number Member ID Insurance Provider's Telephone Number Policy Cannon's Name Patient's Relationship to Policy Cannon MEDICARE (WNR) MEDICARE (M) PART B June 08, 2019 PART B [id number] [phone] SHEBA GARCIA JR PATIENT MEDICARE (WNR) MEDICARE (M) PART A Dec 08, 2012 PART A [id number] [phone] SHEBA GARCIA JR PATIENT Selected Encounter This section includes the information on record at [facility] for the Encounter. Date/Time Encounter Type Encounter Description Reason Provider Source Feb 21, 2023 12:30 PM Outpatient Encounter TELEPHONE TRIAGE [facility] SEN[facility] E Encounter Template Text not used by [facility] Plan of Treatment: Future Appointments (+ 6 months) and Future Tests (+/- 45 days) The Plan of Treatment section includes future care activities for the patient from all [facility] treatmentfacilities. This section includes future appointments and future orders which are active, pending or scheduled. Future Appointments This section includes appointments that were scheduled to occur 6 months from the date of the Encounter, up to a maximum of 20 appointments. The data comes from all [place] treatment facilities. Appointment Date/Time Appointment Type Appointme nt Facility Name Feb 22, 2023 11:00 AM AMBULATORY - NONE [facility] Mar 29, 2023 11:00 AM [facility] Active, Pending, and Scheduled Orders This section includes a listing of several types of active, pending, and scheduled orders, including clinic medications orders, diagnostic test orders, procedure orders and consult orders; where the start date of the order is 45 days before the date of the Encounter or 45 days after the date of theEncounter. The data comes from all [place] treatment facilities. Test Date/Time Test Type Test Details Facility Name Feb 24, 2023 12:00 AM Laboratory - Chemi stry Order COLD AGGLUTININS SERUM SP ONCE [facility] Feb 24, 2023 12:00 AM Laboratory - Chemi stry Order CBC & DIFF BLOOD [facility] Feb 24, 2023 12:00 AM Laboratory - Chemi stry Order BASIC METABOLIC PANEL+MG PL[facility] Lab Results: +/- 30 days of the encounter This section includes the Chemistry and Hematology Lab Results on record with [facility] for the patient. Radiology Reports and Pathology Reports are provided separately, in subsequent sections. Lab Results This section contains the Chemistry/Hematology Results that were resulted 30 days before or 30 daysafter the date of the Encounter. Date/Time Source Result Type Result - Unit Interpretation Reference Range Comment Feb 22, 2023 10:54 AM [facility] CBC Specimen Type: BLOOD Comment: Corrected result reported to: YOBANY DE LA CRUZ 02-23-23 @ [facility]. RBC reported incorrectly as 3.80 by [[id number] ]. Changed to 4.35 on Feb 23, 2023@13:39 by [[id number]] . HCT reported incorrectly as 32.4 by [[id number] ]. Changed to 37.2 on Feb 23, 2023@13:39 by [[id number]] . MCH reported incorrectly as 31.8 by [[id number] ]. Changed to 27.8 on Feb 23, 2023@13:39 by [[id number]] . MCHC reported incorrectly as 37.3 by [[id number] ]. Changed to 32.5 on Feb 23, 2023@13:39 by [[id number]] . Ordering Provider: JARRED MOHR Report Released Date/Time: Feb 09, 2023 03:07 PM Reporting Lab: [facility] [address] Performing Lab: [facility] [address] WBC 9.15 4.0-11.0 RBC 4.35 L 4.6-6.2 HGB 12.1 L 13.5-17.9 HCT 37.2 L 41-54 MCV 85.3 80-100 MCH 27.8 27-33 MCHC 32.5 32.0-37.5 PLT 314 150-400 MPV 9.4 7.4-10.4 RDW 18.7 H 11.5-14.5 Feb 22, 2023 10:54 AM [facility] CREATININE(INCLUDES EGFR) Specimen Type: PLASMA No comment entered. Ordering Provider: JARRED MOHR Report Released Date/Time: Feb 09, 2023 03:07 PM Reporting Lab: [facility] [address] Performing Lab: [facility] [address] CREATININE 0.8 0.7-1.2 .CREAT EGFR(CKD-EPI ) >90 >60 Feb 22, 2023 10:54 AM [facility] AST/SGOT Specimen Type: PLASMA No comment entered. Ordering Provider: JARRED MOHR Report Released Date/Time: Feb 09, 2023 03:07 PM Reporting Lab: [facility] [address] Performing Lab: [facility] [address] AST/SGOT 39 H <34 Feb 22, 2023 10:54 AM [facility] ALT/SGPT Specimen Type: PLASMA No comment entered. Ordering Provider: JARRED MOHR Report Released Date/Time: Feb 09, 2023 03:07 PM Reporting Lab: [facility] [address] Performing Lab: [facility] [address] ALT/SGPT 54 <55 Encounter Notes: All associated encounter notes This section contains the clinical notes associated to the Encounter. Date/Time Encounter Note(s) Provider Source Feb 22, 2023 07:20 AM ADDENDUM: LOCAL TITLE: Addendum STANDARD TITLE: ADDENDUM DATE OF NOTE: FEB 22, 2023@07:20:15 ENTRY DATE: FEB 22, 2023@07:20:15 AUTHOR: ORALIA SHAW EXP COSIGNER: URGENCY: STATUS: COMPLETED To [facility] to please contact vet to let him know that he can come to lab wearing a tight fitting mask. /es/ ORALIA SHAW REGISTERED NURSE Signed: 02/22/2023 07:20 Receipt Acknowledged By: 02/22/2023 09:43 /es/ VALENTINO TRACEY ASMA --- Original Document --- 02/21/23 CCC: CLINICAL TRIAGE: Patient Demographics Patient Name: NORMA GARCIA Patient Primary Address: [address] [place] [id number] Patient Primary Phone: [phone] Patient : 1945 Patient Age: 77 Caller/Recipient Relation to Patient: Self Emergency Contact: FLASH GARCIA Nursing Plan and Disposition Other course(s) of action Generated msg to PACT/Provider Nurse Summary Nurse Summary: PATIENT CONCERN/DURATION/ONSET: tested positive for RSV today. He was seen by his outside physician and prescribed inhalers and home treatments. However, he has labs scheduled at the [place] tomorrow. He would like advisement if it is ok to come in while masked. Please call [facility] to discuss. WHAT HAS PATIENT TRIED TO TREAT THE SYMPTOMS: Treatment per outside physician. HISTORY/PREVIOUS TREATMENT: AF GERD Htn Hld BPH DM2 OA WHAT IS PATIENT GOAL FOR THE CALL: Advice for care; Was Care Now considered (TELE or VVC)? N/a CABLE TENDER DISPOSITION: Triage not completed as Nikolski denies new/worsening symptoms since seen by outside provider. Advised [facility] to call back if symptoms worsen. Message Product Inspection Supervisor sent to PACT, is expecting callback to discuss/schedule. Best contact for is [phone]. This note was created by a [address] sanitary engineer. Please do not alert this nurse by adding as a signer for future communications. Alerts are not monitored by this user, please reach out to [facility] instead if indicated. Non-Triage/Non-Symptom Call Generated msg to PACT/Provider-NonTriage Clinical Contact Center Codes Clinic/Location: [address] PHONE CCC RN /pavel/ LORETTA SENIOR [address] Signed: 02/21/2023 12:30 02/22/2023 ADDENDUM STATUS: COMPLETED confirmed that he will be wearing a tight mask for lab appt today /pavel/ VALENTINO TRACEY ASMCayden Signed: 02/22/2023 09:45 ORALIA SHAW [facility] Feb 21, 2023 12:30 PM RN PROGRESS NOTE: LOCAL TITLE: CCC: CLINICAL TRIAGE STANDARD TITLE: RN PROGRESS NOTE DATE OF NOTE: FEB 21, 2023@12:30:10 ENTRY DATE: FEB 21, 2023@12:30:10 AUTHOR: [facility] SENIOR EXP COSIGNER: URGENCY: STATUS: COMPLETED CCC: CLINICAL TRIAGE Has ADDENDA Patient Demographics Patient Name: NORMA GARCIA Patient Primary Address: [address] [place] [address] Patient Primary Phone: [phone] Patient : 1945 Patient Age: 77 Caller/Recipient Relation to Patient: Self Emergency Contact: FLASH GARCIA Nursing Plan and Disposition Other course(s) of action Generated msg to PACT/Provider Nurse Summary Nurse Summary: PATIENT CONCERN/DURATION/ONSET: Effie tested positive for RSV today. He was seen by his outside physician and prescribed inhalers and home treatments. However, he has labs scheduled at the [facility] tomorrow. He would like advisement if it is ok to come in while masked. Please call Nikolski to discuss. WHAT HAS PATIENT TRIED TO TREAT THE SYMPTOMS: Treatment per outside physician. HISTORY/PREVIOUS TREATMENT: AF GERD Htn Hld BPH DM2 OA WHAT IS PATIENT GOAL FOR THE CALL: Advice for care; Was Care Now considered (TELE or VVC)? N/a CABLE TENDER DISPOSITION: Triage not completed as [facility] denies new/worsening symptoms since seen by outside provider. Advised [facility] to call back if symptoms worsen. Message Product Inspection Supervisor sent to PACT, [facility] is expecting callback to discuss/schedule. Best contact for is [phone]. This note was created by a [address] sanitary engineer. Please do not alert this nurse by adding as a signer for future communications. Alerts are not monitored by this user, please reach out to [facility] instead if indicated. Non-Triage/Non-Symptom Call Generated msg to PACT/Provider-NonTriage Clinical Contact Center Codes Clinic/Location: [facility]23 [facility] PHONE CCC RN /pavel/ LORETTA SENIOR [facility] Signed: 02/21/2023 12:30 02/22/2023 ADDENDUM STATUS: COMPLETED To [facility] to please contact vet to let him know that he can come to lab wearing a tight fitting mask. /pavel/ ORALIA SHAW REGISTERED NURSE Signed: 02/22/2023 07:20 Receipt Acknowledged By: 02/22/2023 09:43 /pavel/ VALENTINO POSADA 02/22/2023 ADDENDUM STATUS: COMPLETED confirmed that he will be wearing a tight mask for lab appt today /pavel/ VALENTINO POSADA Signed: 02/22/2023 09:45 L[facility] SENIOR [facility]
--- OUTSIDE RECORDS SUMMARY | 2023-03-23 10:36 | XMS_ITS | Encounter Summary ---
Author Name [facility] of [facility] Organization Department of [facility] Affairs Address [address] [place] [address] Support Name Relationship Address Phone TRISHRAJIANDRAE PIERREAN Next of Kin [address] [place] [address] RADHA FLASH Emergency Contact [address] [place] [address] MACIASCHANEL HERNANDEZ Next of Kin [address] [place] [address] MACIASCHANEL HERNANDEZ Emergency Contact [address] [...] PART B June 08, 2019 PART B [id number] SHEBA GARCIA JR PATIENT MEDICARE (WNR) MEDICARE (M) PART A Dec 08, 2012 PART A [id number] SHEBA GARCIA JR PATIENT Selected Encounter This section includes the information on record at [facility] for the Encounter. Date/Time Encounter Type Encounter Description Reason Pro vider Source Feb 24, 2023 03:52 PM Outpatient Encounter PRIMARY CARE/MEDICINE IHE Encounter Template Text not used by [facility] Plan of Treatment: Future Appointments (+ 6 months) and Future Tests (+/- 45 days) The Plan of Treatment section includes future care activities for the [facility] This section includes future appointments and future orders which are active, pending or scheduled. Future Appointments This section includes appointments that were scheduled to occur 6 months from the date of the Encounter, up to a maximum of 20 appointments. The data comes from all [facility] treatment facilities. Appointment Date/Time Appointment Type Appointme nt Facility Name Mar 29, 2023 11:00 AM AMBULATORY - [facility] Active, Pending, and Scheduled Orders This section includes a listing of several types of active, pending, and scheduled orders, including clinic medications orders, diagnostic test orders, procedure orders and consult orders; where the start date of the order is 45 days before the date of the Encounter or 45 days after the date of theEncounter. The data comes from all [facility] treatment facilities. Test Date/Time Test Type Test Details Facility Name Feb 24, 2023 12:00 AM Laboratory - Chemi st[facility] Order COLD AGGLUTININS SERUM SP ONCE [facility] Feb 24, 2023 12:00 AM Laboratory - Chemi stry Order CBC & DIFF BLOOD [facility] Feb 24, 2023 12:00 AM Laboratory - Chemi stry Order BASIC METABOLIC PANEL+MG PLASMA [facility] Lab Results: +/- 30 days of the encounter This section includes the Chemistry and Hematology Lab Results on record with [facility] for the patient. Radiology Reports and Pathology Reports are provided separately, in subsequent sections. Lab Results This section contains the Chemistry/Hematology Results that were resulted 30 days before or 30 daysafter the date of the Encounter. Date/Time Source Result Type Result - Unit Interpretation Reference Range Comment Feb 22, 2023 10:54 AM [facility] CBC Specimen Type: BLOOD Comment: Corrected result reported to: YOBANY DE LA CRUZ 02-23-23 @ [facility]. RBC reported incorrectly as 3.80 by [[id number] ]. Changed to 4.35 on Feb 23, 2023@13:39 by [[id number]] . HCT reported incorrectly as 32.4 by [[id number] ]. Changed to 37.2 on Feb 23, 2023@13:39 by [[id number]] . MCH reported incorrectly as 31.8 by [[id number] ]. Changed to 27.8 on Feb 23, 2023@13:39 by [[id number]] . MCHC reported incorrectly as 37.3 by [[id number] ]. Changed to 32.5 on Feb 23, 2023@13:39 by [[id number]] . Ordering Provider: JARRED MOHR Report Released Date/Time: Feb 09, 2023 03:07 PM Reporting Lab: [facility] [id number] Performing Lab: [facility] [id number] WBC 9.15 4.0-11.0 RBC 4.35 L 4.6-6.2 HGB 12.1 L 13.5-17.9 HCT 37.2 L 41-54 MCV 85.3 80-100 MCH 27.8 27-33 MCHC 32.5 32.0-37.5 PLT 314 150-400 MPV 9.4 7.4-10.4 RDW 18.7 H 11.5-14.5 Feb 22, 2023 10:54 AM [facility] CREATININE(INCLUDES EGFR) Specimen Type: PLASMA No comment entered. Ordering Provider: JARRED MOHR Report Released Date/Time: Feb 09, 2023 03:07 PM Reporting Lab: [facility] [id number] Performing Lab: [facility] [id number] CREATININE 0.8 0.7-1.2 .CREAT EGFR(CKD-EPI ) >90 >60 Feb 22, 2023 10:54 AM [facility] AST/SGOT Specimen Type: PLASMA No comment entered. Ordering Provider: JARRED MOHR Report Released Date/Time: Feb 09, 2023 03:07 PM Reporting Lab: [facility] [id number] Performing Lab: [facility] [id number] AST/SGOT 39 H <34 Feb 22, 2023 10:54 AM [facility] ALT/SGPT Specimen Type: PLASMA No comment entered. Ordering Provider: JARRED MOHR Report Released Date/Time: Feb 09, 2023 03:07 PM Reporting Lab: [facility] [id number] Performing Lab: [facility] [address] [facility] [address] ALT/SGPT 54 <55 Encounter Notes: All associated encounter notes This section contains the clinical notes associated to the Encounter. Date/Time Encounter Note(s) Provider Source Feb 24, 2023 04:05 PM PRIMARY CARE NOTE: LOCAL TITLE: [facility] PROGRESS NOTE - [facility] STANDARD TITLE: PRIMARY CARE NOTE DATE OF NOTE: FEB 24, 2023@16:05 ENTRY DATE: FEB 24, 2023@16:05:06 AUTHOR: GENE LAYTON EXP COSIGNER: URGENCY: STATUS: COMPLETED [facility] PROGRESS NOTE - [facility] Has ADDENDA I was notified with following information from [facility] 02/24/2023 ADDENDUM STATUS: COMPLETED Updated labs drawn for DOAC therapy. Will request PCP review with concern for possible cold agglutinin per lab. Thank you. Specimen Collection Date: Feb 22, 2023@10:54 Test name Result units Ref. range Site Code WBC 9.15 K/cmm 4.0 - 11.0 [618] RBC 4.35 L M/cmm 4.6 - 6.2 [618] HGB 12.1 L g/dL 13.5 - 17.9 [618] HCT 37.2 L % 41 - 54 [618] MCV 85.3 fL 80 - 100 [618] MCH 27.8 pg 27 - 33 [618] MCHC 32.5 g/dL 32.0 - 37.5 [618] RDW 18.7 H % 11.5 - 14.5 [618] PLT 314 K/cmm 150 - 400 [618] MPV 9.4 fL 7.4 - 10.4 [618] Comment: Corrected result reported to: YOBANY DE LA CRUZ 02-23-23 @ 1338/[facility]. RBC reported incorrectly as 3.80 by [[id number]]. Changed to 4.35 on Feb 23, 2023@13:39 by [[id number]]. HCT reported incorrectly as 32.4 by [[id number]]. Changed to 37.2 on Feb 23, 2023@13:39 by [[id number]]. MCH reported incorrectly as 31.8 by [[id number]]. Changed to 27.8 on Feb 23, 2023@13:39 by [[id number]]. [facility] reported incorrectly as 37.3 by [[id number]]. Changed to 32.5 on Feb 23, 2023@13:39 by [[id number]]. 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 He should be seen in ER if worse or if he has additional new symptoms. /pavel/ MD PHYSICIAN JANNETTE TRAN Signed: 02/24/2023 16:06 Receipt Acknowledged By: 02/28/2023 09:36 /pavel/ ORALIA SHAW REGISTERED NURSE 02/28/2023 ADDENDUM STATUS: COMPLETED RN spoke to regarding abnormal result. Vet declined to schedule lab draw at this time, but states he will call to schedule once feeling 100% recovered from RSV. /pavel/ ORALIA SHAW REGISTERED NURSE Signed: 02/28/2023 09:37 GENE LAYTON
--- OUTSIDE RECORDS SUMMARY | 2023-03-23 10:36 | XMS_ITS | Clinical Summary ---
Author Name Unknown Organization [facility] Address [place], [place] [address] Care Team Providers Care Supervisor Lens Generating Name Role Phone Aimee Trevizo MD Primary Care Provider [phone] Allergies Active Allergy Reactions Criticality Noted Date Comments Benazepril Cough 03/13/2015 Atorvastatin Myalgia 03/13/2015 Medications Medication Sig Dispensed Refills Start Date End Date Status CLARITIN 10 MG ORAL TAB once a day ? 0 04/09/2002 Active FLONASE 50 MCG/ACTUATION NASL SPRA two puffs each nostril once a day ? 0 04/09/2002 Active omeprazole (PRILOSEC) 20 mg Delayed-Release capsule Take 1 capsule by mouth once daily before a meal. 0 03/13/2015 Active albuterol (PROAIR RESPICLICK) 90 mcg/actuation INHALER Inhale by mouth every 4 hours. 0 03/13/2015 Active melatonin 3 mg tablet Take 1 tablet by mouth at bedtime. 0 03/13/2015 Active acetaminophen (TYLENOL) 325 mg tablet Take 1 Tablet (325 mg) by mouth every 4 hours if needed. Max acetaminophen dose: 4000mg in 24 hrs. 30 Tablet 0 06/19/2020 Active magnesium 250 mg tabIndications:Rou concepcion health maintenance Take 1 Tablet (250 mg) by mouth once daily. 30 Tablet 0 06/19/2020 Active butenafine 1% cream (Lotrimin Ultra) 1 % topical creamIndications:R outine health maintenance Apply topically to affected area(s) once daily. 1 Tube 0 06/19/2020 Active lancetsIndications :Controlled type 2 diabetes mellitus without complication, without long-term current use of insulin (HC) Test 1 times per day. 0 06/19/2020 Active docusate (COLACE) 100 mg capsuleIndications :Routine health maintenance Take 1 Capsule (100 mg) by mouth 2 times daily if needed for Constipation. 30 Capsule 0 06/19/2020 Active triamcinolone (ARISTOCORT; KENALOG) 0.1 % creamIndications:R [facility] health maintenance Apply topically to affected area(s) 3 times daily. 80 g 0 06/19/2020 Active CPAPIndications:Ob structive sleep apnea CPAP machine for home use at pressure , 1 Device 11 07/10/2020 Active tamsulosin (FLOMAX) 0.4 mg capsuleIndications :BPH with urinary obstruction Take 1 Capsule (0.4 mg) by mouth once daily after a meal. 90 Capsule 1 07/22/2020 Active losartan-hydrochlo rothiazide (HYZAAR) 100-25 mg tabletIndications: Hypertension Take 1 Tablet by mouth once daily. 90 Tablet 1 07/22/2020 Active fluticasone propion-salmeteroL (Advair Diskus) 250-50 mcg/Dose diskus inhalerIndications :Environmental allergies Inhale 1 Puff by mouth every 12 hours. 1 Inhaler 11 07/30/2020 Active amLODIPine (NORVASC) 10 mg tabletIndications: HTN (hypertension) Take 1 Tablet (10 mg) by mouth once daily. 90 Tablet 3 08/01/2020 Active ezetimibe (ZETIA) 10 mg tablet Take 1 Tablet by mouth once daily. 0 05/15/2021 Active metFORMIN (GLUCOPHAGE) 500 mg tabletIndications: Controlled type 2 diabetes mellitus without complication, without long-term current use of insulin (HC) Take 2 Tablets (1,000 mg) by mouth two times daily with meals. 270 Tablet 1 11/03/2021 Active potassium chloride (KLOR-CON 10; K-TAB) 10 mEq Controlled-Release tabletIndications: HTN (hypertension) Take 1 Tablet (10 mEq) by mouth once daily with a meal. 180 Tablet 3 04/22/2022 Active metoprolol succinate (Toprol XL) 100 mg Sustained-Release tabletIndications: Paroxysmal atrial fibrillation (HC) Take 1 Tablet (100 mg) by mouth once daily. 90 Tablet 3 04/22/2022 Active fluorouracil 5% topical (EFUDEX) 5 % cream Apply 40 g topically to affected area(s) each time if needed. Use as directed once weekly 0 06/03/2021 Active clotrimazole-betam ethasone cream (LOTRISONE) 1-0.05 % cream Apply 45 g topically to affected area(s) 2 times daily if needed. 0 03/15/2022 Active amoxicillin (AMOXIL) 500 mg capsule Take 500 g by mouth each time if needed. Take 4 capsules by mouth once 1 hour prior to dental appointment 0 01/21/2022 Active cholestyramine-suc reena 4 G per scoop (QUESTRAN) 4 gram powder Mix 4 g in liquid then take by mouth four times daily. Mix 4g into liquid four times daily and drink with meals. Avoid other medications within 1 hour before or 4-6 hours after dose. 0 11/30/2021 Active ketoconazole 2% topical (NIZORAL) cream Apply 2 % topically to affected area(s) each time if needed. Apply topically to affected areas 3-4 days per week. 0 02/16/2022 Active Psyllium Husk-Sucrose 3.4 gram/7 gram powd Mix 28.3 % in liquid then take by mouth before bedtime. 0 Active cetirizine (ZyrTEC) 10 mg tablet Take 1 Tablet (10 mg) by mouth once daily. 0 04/23/2022 Active fish oil-omega-3 fatty acids (Fish OiL) 1,200-360 mg cap Take by mouth once daily. One capsule is 1200 mg-360 mg 0 04/23/2022 Active wwgmnafr-bgv-CD-ly copen-lutein (Centrum Silver Men) 300-600-300 mcg tab Take by mouth. 0 04/23/2022 Active coenzyme q10 100 mg cap Take 1 Capsule (100 mg) by mouth once daily. 0 04/23/2022 Active apixaban (ELIQUIS) 5 mg tabletIndications: Paroxysmal atrial fibrillation (HC) Take 1 Tablet (5 mg) by mouth two times daily. 0 06/08/2022 Active ferrous sulfate, 65 mg elemental, tabletIndications: Paroxysmal atrial fibrillation (HC) Take 1 Tablet (325 mg) by mouth once daily with a meal. Iron w/ vit c 0 06/08/2022 Active medication order composerIndication s:Paroxysmal atrial fibrillation (HC) [facility] 1 tab QD 0 06/08/2022 Active propafenone (RYTHMOL) 225 mg tabletIndications: Chronic atrial fibrillation (HC) Take 1 Tablet (225 mg) by mouth every 8 hours. 270 Tablet 3 01/04/2023 Active Active Problems Problem Noted Date Diagnosed Date BPH with urinary obstruction 07/04/2020 Asthma 07/04/2020 Environmental allergies 07/04/2020 GERD 07/04/2020 Hyperlipidemia, mixed 03/13/2015 Overview: -04/2013 Chol 207, TG 154, HDL 60, LDL 116 with hemoglobin A1c 6.4 -10/2013 Chol 163, TG 183, HDL 59, LDL 67.4 -08/2014 Chol 201, TG 179, HDL 48, calculated LDL 117.2, hemoglobin A1c 5.8 Paroxysmal atrial fibrillation 03/04/2015 Overview: The first episode was in July 2001 and the second one in March 2002. He woke up with a feeling of rapid palpitation and went to the ER where he was found to have a ventricular rate of 145-175 bpm was treated with propafenone. Was seen by Dr. Ventura Gurinder EP who recommended continuing propafenone at that time 2002. -04/06/2002 ECHO outside on scanned documents Left ventricular size is within normal limits. Left ventricular wall thickness within normal limits. No significant wall motion abnormalities noted. Estimated left ventricular ejection fraction approximately 55-60%. No pericardial effusion noted. No left ventricular or apical thrombus noted. Left atrial chamber size within normal limits. Aortic root diameter is within normal limits. Mitral and aortic valves are within normal limits. [id number] color flow velocities across revealed mild tricuspid regurgitation. Estimated right ventricular diastolic pressure is 38 mmHg -04/09/2002 TSH 1.31 [id number] at least 3 HTN, age-1, DM Hypertension 03/04/2015 Diabetes mellitus type II 03/04/2015 Overview: -11/2012 hemoglobin A1c 6.5 -02/2014 hemoglobin A1c 6.1 Obstructive sleep apnea Overview: -04/09/2002 Sleep study Moderate to severe sleep apnea. Titrated for CPAP Encounters Date Type Department Care Team Description 01/04/[address] [facility] [address] [place] [address] Uday Edgar MD Medication Management from Last 3 Months Immunizations Name Administration Dates Next Due COVID-19 vaccine ([employer] 30mcg/0.3mL) KATE CRUM 04/13/2020,03/23/2020 Influenza, High-dose Inactivated 020,12/06/2018,11/04/2017,2015 Pneumococcal Poly,23-Valent (Pneumovax) 08/21/2014 Pneumococcal conj 13-Valent (Prevnar 13) 12/05/2017 Tdap 10/21/2017 Zoster (Zostavax-ZVL, live) 04/14/2012 Family History Medical History Relation Name Comments Heart Disease Mother Atrial fibrill ation in her 90's Genetic Other Non-contributor y. Relation Name Status Comments Mother Other Social History Tobacco Use Types Packs/Day Years Used Date Smoking Tobacco: Never Smokeless Tobacco: Never Alcohol Use Standard Drinks/Week Comments Not Currently 0 (1 standard drink = 0.6 oz pur e alcohol) Alcoholic Drinks/day: 0 PHQ-2 Answer Date Recorded PHQ-2 TOTAL SCORE 0 06/19/2020 Social Connections Answer Date Recorded Frequency of Communication with Friends and Fami ly Not on file 02/07/2021 Financial Resource Strain Answer Date R ecorded Difficulty of Paying Living Expenses Not on file 02/07/2021 Difficulty of Paying Living Expenses Not on file 02/07/2021 Sex and Gender Information Value Date Recorded Sex Assigned at Not on file Gender Identity Not on file Sexual Orientation Straight 09/27/2020 7: 04 AM CDT Obstetrics History Last Filed Vital Signs Vital Sign Reading Time Taken Comments Blood Pressure 130/76 06/08/2022 2:00 PM CDT Pulse 56 06/08/2022 2:00 PM CDT Temperature - - Respiratory Rate - - Oxygen Saturation 97% 06/08/2022 2:00 PM CDT Inhaled Oxygen Concentration - - Weight 124.7 kg (275 lb) 06/08/2022 2:00 PM CDT Height 180.3 cm (5' 10.98) 06/08/2022 2:00 PM C DT Body Mass Index 38.38 06/08/2022 2:00 PM CDT Plan of Treatment Upcoming Encounters Date Type Department Care Team (Late st Contact Info) Description 08/08/2023 11:00 AM CDT Office Visit [facility] [address] [place] [address] Uday Edgar MD [address] [place] [address] Health Maintenance Due Date Last Done Comments Hepatitis C screening for ag e 18-79 12[birth year]19/1963 Zoster (shingles) series for age 50+ (2 of 3) 06/09/2012 04/14/2012 Medicare Wellness for age 65+ 12/19/2012 Depression screening for age 12+ 06/19/2021 06/20/19 21 COVID-19 vaccine series ( season) 2022 06/22/2022, 04/13/2020, 03/23/2020 Influenza for age 65+ 10/08/2022 11/28/2019 , 12/06/2018, 11/04/2017, Additional history exists Colonoscopy through age 75 01/05/202301/05 (Completed outside of [facility]) BMI (ht and wt on same day) for age 18+ 06/09/2023 06/08/2022, 04/22/2022, 11/03/2021, Additional history exists Lipids for age 45-75 11/03/2026 11/03/2021 Tetanus booster 10/22/2027 10/21/2017 Tdap Completed 10/21/2017 Pneumococcal series for age 65+ Completed 8, 08/21/2014 Care Teams Supervisor Lens Generating Relationship Specialty Start Date End Date Aimee Trevizo MD [address] [place] [address] PCP - General Emergency Medicine 07/23/21
--- OUTSIDE RECORDS SUMMARY | 2023-03-23 10:36 | XMS_ITS | Data Portability ---
Author Name Unknown Address [address] [place] [address] Phone [phone] Organization [facility], [facility] Address [address] [place] [address] Care Team Providers Care [employer] Operator Name Role Phone [facility] Referring Provider Assessment No assessment recorded. Plan of Treatment Reminders Order Date Submit Date Provider Last Modified By Organization Details Last Modified Time Details Appointments None record ed. Lab None record ed. Referral None record ed. Procedures None record ed. Surgeries None record ed. Imaging None record ed. Medication Orders None record ed. Patient TargetsNo targets recorded. Patient Instructions Encounter Date Encounter Id Patient Instructions Last Modified By Organization Details Last Modified Time 09/07/2022 [id number] call or rtc if getting larger and/or becoming tense or painful. for now would not recommend surgery. Not available 09/07/2022 12:24:57 Reason for Referral None Reported. Problems Name Status Onset Date Resolution Date Notes Provider Name and Address Organization Details Recorded Time Hydrocele of testis Active 3 Demarco Mix MD [address], [place], [address], [facility] 09/07/2022 12:24:01 Problem Notes None recorded. Procedures Surgical History Date Name Laterality Status Provider Name and Address Organization Details Recorded Time [facility] of lid position [facility]:07[facility] Xcapsl ctrc rm[facility] cplx [facility]:07[facility]25 [facility] 12:07:41 Orthopedic Surgery completed June, [facility] 09/07/2022 12:07:50 Vasectomy completed June, [facility] 09/07/2022 12:08:06 Colonoscopy completed June, [facility] 09/07/2022 12:08:13 Imaging Results None recorded. Procedure Notes None recorded. Medical Equipment None Reported. Allergies No known drug allergies Medications Name Sig Start Date Stop Date Status Note LastModified by Organization Details LastModified Time amoxicillin 500 mg capsule TAKE 1 CAPSULE BY MOUTH 4 TIMES DAILY UNTIL GONE 09/07 completed Not Available Not Available Not Available fluconazole 100 mg tablet active Not Available Not Available Not Available metformin 500 mg tablet TAKE 2 TABLETS BY MOUTH TWICE DAILY WITH MEALS active Not Available Not Available No t Available potassium chloride ER 10 mEq capsule,ext ended release active Not Available Not Available Not Available prednisone 10 mg tablet TAKE 1 TABLET BY MOUTH TWICE DAILY FOR 5 DAYS 09/07 completed Not Available Not Available Not Available clindamycin HCl 300 mg capsule TAKE 1 CAPSULE BY MOUTH FOUR TIMES DAILY UNTIL ALL TAKEN active Not Available Not Available No t Available benzonatate 200 mg capsule TAKE 1 CAPSULE BY MOUTH THREE TIMES DAILY 09/07 completed Not Available Not Available Not Available hydrocodone 5 mg-acetamin ophen 325 mg tablet TAKE 1 TABLET BY MOUTH EVERY 4-6 HOURS NEEDED FOR PAIN NOT RELIEVED WITH NSAIDS 09/07 completed Not Available Not Available Not Available metoprolol succinate ER 100 mg tablet,exte nded release 24 hr TAKE 1 TABLET BY MOUTH DAILY active Not Available Not Available No t Available acetaminoph en 500 mg tablet active Not Available Not Available Not Available triamcinolo ne acetonide 0.1 % topical cream active Not Available Not Available Not Available losartan 100 mg-hydrochl orothiazide 25 mg tablet active Not Available Not Available Not Available amoxicillin 875 mg tablet TAKE 1 TABLET BY MOUTH TWICE DAILY FOR 5 DAYS 09/07 completed Not Available Not Available Not Available tamsulosin 0.4 mg capsule active Not Available Not Available Not Available amlodipine 10 mg tablet active Not Available Not Available Not Available erythromyci n 5 mg/gram (0.5 %) eye ointment APPLY THIN LAYER TO THE EYELID FOUR TIMES DAILY DIRECTED NEEDED 09/07 completed Not Available Not Available Not Available clotrimazol e-betametha sone 1 %-0.05 % topical cream APPLY TOPICALLY TO THE AFFECTED AREA EVERY 12 HOURS NEEDED FOR RASH 09/07 completed Not Available Not Available Not Available omeprazole 20 mg capsule,del ayed release active Not Available Not Available Not Available ketoconazol e 2 % topical cream APPLY TOPICALLY [facility]. APPLY TOPICALLY TO AFFECTED AREA 3 TO 4 DAYS WEEKLY 09/07 completed Not Available Not Available Not Available amoxicillin 875 mg-potassiu m clavulanate 125 mg tablet TAKE 1 TABLET BY MOUTH EVERY 12 HOURS 09/07 completed Not Available Not Available Not Available oxycodone 5 mg tablet active Not Available Not Available No t Available neomycin 3.5 mg/g-polymy sherine B 10,000 unit/g-dexa meth 0.1 % eye oint active Not Available Not Available Not Available ezetimibe 10 mg tablet active Not Available Not Available Not Available cholestyram ine (with sugar) 4 gram oral powder MIX 4G INTO LIQUID FOUR TIMES DAILY AND DRINK WITH MEALS. AVOID OTHER MEDS WITHIN 1 HOUR BEFORE OR 4-6HRS AFTER DOSE. 09/07 completed Not Available Not Available Not Available Cholestyram ine Light 4 gram oral powder TAKE 1 SCOOP BY MOUTH TWICE DAILY DISSOLVED IN 2-6 OUNCES OF WATER OR NONCARBON ATED BEVERAGE BEFORE MEALS active Not Available Not Available No t Available Stimulant Laxative Plus 8.6 mg-50 mg tablet TAKE 1 TO 4 TABLETS BY MOUTH TWICE DAILY NEEDED FOR CONSTIPAT ION. HOLD MEDICATIO N IF EXPERIENC ING LOOSE STOOLS. active Not Available Not Available No t Available Vitals Date Recorded Body height Body mass index (BMI) Body weight Provider Name and Address Organization Details Last Updated DateTime 09/07/2022 180.34 cm 38.4 kg/m2 085479.9 g [facility]IN [facility] 09/07/2022 12:05:13 Social History Question Answer Notes LastModified by Organizat ion Details LastModified Time Tobacco Smoking Status Never Smoker KEVIN [facility] 09/07/2022 12:06:54 What Is Your Level Of Alcohol Consumption? None [email or web address] Information not available 09/07/2022 What Is Your Level Of Caffeine Consumption? None [email or web address] Information not available 09/07/2022 What Was The Date Of Your Most Recent Tobacco Screening? 09/07/2022 [email or web address] Information not available 09/07/2022 Do You Use Any Illicit Or Recreational Drugs? No [email or web address] Information not available 09/07/2022 Has Tobacco Cessation Counseling Been Provided? No [email or web address] Information not available 09/07/2022 Do You Or Have You Ever Used Any Other Forms Of Tobacco Or Nicotine? No [email or web address] Information not available 09/07/2022 Sex: Male Functional Status None recorded. Mental Status None recorded. Family History Relationship Description Onset Age of this Age Resolved Age Notes Sister Leukemia Medical History Condition Response Sexually Transmitted Infection N Diabetes Y Other Y Bleeding Disorder N High Blood Pressure Y Kidney Stones N High Cholesterol Y GERD/Acid Reflux N Heart Disease Y Cancer N Depression N Lung Disease N Immunizations Vaccine Type Date Status Provider Name and Address Organization Details Recorded Time zoster recombinant 05/12/2018 completed Fredajune null, [facility] 09/07/2022 12:05:18 zoster recombinant 11/14/2017 completed Fredajune null, [facility] 09/07/2022 12:05:18 influenza, high-dose, quadrivalent 11/28/2019 completed Fredajune null, [facility] 09/07/2022 12:05:18 influenza, high-dose, quadrivalent 12/11/2020 completed Fredajune, [facility] 09/07/2022 12:05:18 COVID-19, mRNA, LNP-S, PF, 30 mcg/0.3 mL dose 03/23/2020 completed Fredajune null, [facility] 09/07/2022 12:05:18 COVID-19, mRNA, LNP-S, PF, 30 mcg/0.3 mL dose 04/13/2020 completed Fredajune null, [facility] 09/07/2022 12:05:18 COVID-19, mRNA, LNP-S, PF, 30 mcg/0.3 mL dose, wilfred-sucrose 05/12/2021 completed Fredajune null, [facility] 09/07/2022 12:05:18 COVID-19, mRNA, LNP-S, bivalent, PF, 30 mcg/0.3 mL dose 06/22/2022 completed Fredajune null, [facility] 09/07/2022 12:05:18 pneumococcal polysaccharide PPV23 08/21/2014 completed Freda June null, [facility] 09/07/2022 12:05:18 pneumococcal polysaccharide PPV23 12/31/2014 completed Freda June null, [facility] 09/07/2022 12:05:18 Tdap 05/21/2020 completed Freda June null, [facility] 09/07/2022 12:05:18 Tdap 10/21/2017 completed Freda June null, [facility] 09/07/2022 12:05:18 Pneumococcal conjugate PCV 13 04/21/2017 completed Freda June null, [facility] 09/07/2022 12:05:18 Pneumococcal conjugate PCV 13 12/05/2017 completed Freda June null, [facility] 09/07/2022 12:05:18 zoster live 04/14/2012 completed Freda June null, [facility] 09/07/2022 12:05:18 Influenza, high dose seasonal 02/26/2015 completed Freda June null, [facility] 09/07/2022 12:05:18 Influenza, high dose seasonal 11/04/2017 completed Freda June null, [facility] 09/07/2022 12:05:18 Influenza, high dose seasonal 12/06/2018 completed Freda June null, [facility] 09/07/2022 12:05:18 Influenza, seasonal, injectable 10/23/2008 completed Freda June null, [facility] 09/07/2022 12:05:18 Influenza, seasonal, injectable 11/16/2011 completed Freda June null, [facility] 09/07/2022 12:05:18 Influenza, seasonal, injectable 12/09/2009 completed Freda June null, [facility] 09/07/2022 12:05:18 Influenza, seasonal, injectable 12/17/2010 completed Freda June null, [facility] 09/07/2022 12:05:18 Influenza, seasonal, injectable 2006 completed Freda June null, [facility] 09/07/2022 12:05:18 Influenza, seasonal, injectable, preservative free 12/05/2012 completed June null, [facility] 09/07/2022 12:05:18 Td (adult), 5 Lf tetanus toxoid, preservative free, adsorbed 04/17/2007 completed Freda June null, [facility] 09/07/2022 12:05:18 tetanus toxoid, adsorbed 04/17/2007 completed [facility] June null, [facility] 09/07/2022 12:05:18 Past Encounters Encounter ID Performer Location Encounter Start Date Encounter Closed Date Diagnosis/Indication [id number] Demarco Mix MD _[facility] [address] [place] [address] 09/07/2022 11:40:53 09/13/2022 09:25:54 Hydrocele of testis Health Concerns Section Related Observation LastModified by Organization Detai ls LastModified Time None Recorded Concern Status LastModified by Organization Details LastModified Time None Recorded Advance Directives Directive None Recorded Payers Encounter Date Sequence Insurance Name Policy Number Policy Cannon Covered Member ID Cannon Member ID Guarantor Name 09/07/2022 1 [employer] Manuel Pierre [id number] Manuel Pierre Notes Date Note Type Note Provider Name and Address Organization Details Recorded Time 09/07/2022 text/html HPI Notes: seein g for left hydrocele enlarging lately but been there for decades started as teenager. no pain. not had any imaging done. had varicocele surgery bilateral for fertility in his 20's and had kids after that. not had scrotal U/S done. Demarco Mix MD [address], [place], [address], [facility] 09/07/2022 12:25:06
== END 2023-03-23 10:31 | disposition home or self-care (01) ==
LOC: CT 10:31
PROVIDERS: PCP Family Medicine; Visit Provider Orthopaedic Surgery Sports Medicine
DX: M12.812 Other specific arthropathies, not elsewhere classified, left shoulder (principal); M19.012 Primary osteoarthritis, left shoulder; M75.102 Unspecified rotator cuff tear or rupture of left shoulder, not specified as traumatic
CPT/HCPCS: 73200

== ENCOUNTER 2023-03-30 11:58 | Outpatient (CLI) | payer OTHER, SELFPAY ==
--- OUTSIDE RECORDS SUMMARY | 2023-03-30 12:21 | XMS_ITS | Continuity of Care Document ---
Author Name [facility] Organization [facility] Care Team Providers Care Auto Driver Name Role Phone [facility] Unavailable Unavailable Problems Combined list of problems from Department of Defense and Veterans [facility] facilities. It does not include entries that were removed or entered in error. Problem Status Onset Date Problem Type Date of Resolution Comments Source COVID-19 Active 01/08/20 21 Condition [facility] AF - Atrial Fibrillation ([facility] [id number]) Active Condition May 28, 2021 Entered By: GENE LAYTON Comment: Managed with Metoprolol, Propafenone and Apixaban [facility] ascending aorta dilation Active Condition Jul 10, 2021 Entered By: GNEE LAYTON Comment: aortic sinus 4.2cm and asc aorta 4.4 cmMay 2022 Entered By: GENE LAYTON Comment: 08/19/21 [facility] test [facility] Myocardial perfusion was normal. [facility] Asthma ([facility] [id number]) Active Condition [facility] Benign Prostatic Hypertrophy with Outflow Obstruction ([facility] [id number]) Active Condition [facility] Body mass index 30+ - obesity Active Condition [facility] Diabetes Mellitus Type 2 ([facility] [id number]) Active Condition [facility] ECG: premature ventricular contractions Active Condition June 22, 2022 Entered By: GENE LAYTON Comment: EXTENDED HOLTER 05/17/22 AT [facility] 2022 Entered By: GENE LAYTON Comment: SHOWS 11 episodes of SVT upto 17beats, avg HR 71 NO AFIB SEEN [facility] Environmental allergy Active Condition [facility] Family social history Active Condition May 28, 2021 Entered By: GENE LAYTON Comment: NEVER SMOKED TOBACCOApr 2021 Entered By: GENE LAYTON Comment: Parents smokedApr 2021 Entered By: GENE LAYTON Comment: [employer]/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 communication 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 2021 Entered By: GENE LAYTON Comment: 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, 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, 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 [employer]Apr 2021 Entered By: GENE LAYTON Comment: Lives with (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)May 28, 2021 Entered By: GENE LAYTON Comment: 1 biological Daughter ([place]) and 1 adopted daughter(in [place])May 28, 2021 Entered By: GENE LAYTON Comment: NO ALCOHOL USE NOW, Last drink 25 yrs agoApr 2021 Entered By: GENE LAYTON Comment: older Sister has Myelofibrosis and non hodjkins lymphomaApr 2021 Entered By: GENE LAYTON Comment: younger sister is healthy [facility] GERD - Gastro-Esophageal Reflux Disease ([facility] [id number]) Active Condition [facility] H/O: surgery Active Condition May 28, 2021 [...] LAYTON Comment: s/p partial left thyroidectomy, 1981, [facility] History of polyp of colon Active Condition May 28, 2021 Entered By: GENE LAYTON Comment: S/P Colonosocpy 05/26/21. 2 polyps removed at [facility] HTN - Hypertension ([facility] [id number]) Active Condition [facility] Hyperlipidemia ([facility] [id number]) Active Condition [facility] Iron deficiency Active Condition May 28, 2021 Entered By: GENE LAYTON Comment: ON IRON SINCE 12/2020 anemia after knee replacements and colon polyp resection 05/2021 [facility] Long-term Current Use of Anticoagulant ([facility] [id number]) Active Condition June 22, 2022 Entered By: GENE LAYTON Comment: on APIXABAN FOR AFIB [facility] OA - Osteoarthritis ([facility] [id number]) Active Condition [facility] Obstructive sleep apnea of adult Active Condition June 22, 2022 Entered By: GENE LAYTON Comment: uses CPAP, HAS A NEW FACE MASK, HAS BEEN COMPLIANT WITH CPAPMay 2022 Entered By: GENE LAYTON Comment: [facility] compliance report from 02/06/22 to 05/06/22May 2022 Entered By: GENE LAYTON Comment: Dreams and kicking in dreams is better with new face mask [facility] Respiratory syncytial virus infection Active Condition Feb 24, 2023 Entered By: GENE LAYTON Comment: Cold agglutinin is suspected and Vet is anticoagulated [facility] Thyroid nodule Active Condition Marquise 0 2021 Entered By: GENE LAYTON Comment: noted on faxed recs-see scanned recs for detailsJun 2021 Entered By: GENE LAYTON Comment: s/p partial thyroidectomy [facility] Diagnosis: ICD-10-CM Z00.01 Encounter for general [...] BREATH *SHAKE WELL* INHALA TION ACTIVE 06/23/2023 [id number] AIMEE LAYTON 2022 [facility] AMLODIPINE BESYLATE 10MG TAB TAKE ONE TABLET BY MOUTH EVERY DAY ORALLY ACTIVE LAYTONAIMEE 2021 [facility] APIXABAN 5MG TAB TAKE ONE TABLET BY MOUTH EVERY 12 HOURS TO PREVENT BLOOD CLOTS, STROKE FROM ATRIAL FIBRILLA TION ORALLY ACTIVE 07/14/2023 [id number] Gabriel MORA INAFilomena 2022 [facility] APIXABAN 5MG TAB TAKE ONE TABLET BY MOUTH EVERY 12 HOURS TO PREVENT BLOOD CLOTS, STROKE FROM ATRIAL FIBRILLA TION ORALLY DISCONT INUED 06/16/2022 [id number] HAILE TILLEY 2021 [place] [facility] EZETIMIBE 10MG TAB TAKE ONE TABLET BY MOUTH EVERY DAY ORALLY ACTIVE LAYTONAIMEE 2021 [facility] FLUTICASONE PROPIONATE 50MCG/SPRAY SOLN,NASAL, 16GM SPRAY 1 SPRAY IN EACH NOSTRIL AT BEDTIME NEEDED NASAL ACTIVE CALINAIMEE ALAN 2021 [facility] MAGNESIUM OXIDE 140MG CAP TAKE 2 CAPSULES BY MOUTH EVERY DAY ORALLY ACTIVE LAYTONAIMEE ND 2021 [facility] MELATONIN CAP/TAB TAKE [...] BY MOUTH EVERY DAY ORALLY ACTIVE CALINAIMEE ND 2021 [facility] NON VA MED NOT LISTED USE LOSARTAN /HCTZ 100-25MG MOUTH EVERY DAY ORALLY ACTIVE LAYTONAIMEE ND 2021 [facility] NON VA MED NOT LISTED USE IRON WITH VITAMIN C 65MG 1 EVERY OTHER DAY MOUTH EVERY OTHER DAY ORALLY ACTIVE CALINAIMEE ND 2021 [facility] NON [facility] MED [...] FOR ATRIAL FIBRILLA TION ORALLY ACTIVE 01/06/2024 [id number] AIMEE LAYTON 2022 [facility] PROPAFENONE HCL 150MG TAB TAKE ONE AND ONE-HALF TABLETS BY MOUTH THREE TIMES A DAY FOR ATRIAL FIBRILLA TION ORALLY DISCONT INUED (EDIT) 08/14/2023 [id number] 3 AIMEE LAYTON 2022 [facility] PROPAFENONE HCL 150MG TAB TAKE ONE AND ONE-HALF TABLETS BY MOUTH THREE TIMES A DAY FOR ATRIAL FIBRILLA TION ORALLY DISCONT INUED 08/12/2022 [id number] 3 AIMEE LAYTON 2021 [facility] [...] in lower limb active 2 [place] [facility] Immunizations Combined list of available immunizations from the 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 Immunization Series Date Given Administered By Site Reaction Lot Number CVX Code Drug Bicycle Technician Status Comments Source COVID-19 ([employer]), MRNA, LNP-S, BIVALENT BOOSTER, PF, 30 MCG/0.3 ML DOSE 4 2022 DILIAWILL BLACK RIGHT DELTO ID [id number] 300 complet ed [facility] COVID-19 ([employer]), MRNA, LNP-S, PF, 30 MCG/0.3 ML DOSE 3 2021 208 complet ed [facility] TDAP [address] [facility] COVID-19 (PFIZER), MRNA, LNP-S, PF, 30 MCG/0.3 ML DOSE 2 2020 208 complet ed [facility] COVID-19 (PFIZER), MRNA, LNP-S, PF, 30 MCG/0.3 ML DOSE 1 2020 208 complet ed [facility] ZOSTER RECOMBINANT 2 2018 187 complet ed [facility] PNEUMOCOCCAL CONJUGATE PCV 13 2017 133 complet ed [facility] ZOSTER RECOMBINANT 1 2017 187 complet ed [facility] PNEUMOCOCCAL POLYSACCHARID E PPV23 2014 33 complet ed [facility] Results Combined list of recent chemistry, hematology and other laboratory results from Department of Defense and Veterans Affairs, ranging from 15 months to all on record, depending upon the facility. Order Name Results Value Reference Range Date Interpretation Specimen Comments Source BASIC METABOLIC PANEL+MG CREATININE [MASS/VOLUM E] IN SERUM OR PLASMA 0.7 0.7 - 1.2 03/29 Specimen Type: PLASMA No comment entered. Ordering Provider: GENE LAYTON Report Released Date/Time: Feb 24, 2023 04:04 PM Reporting Lab: [facility] [address] Performing Lab: [facility] [address] JANNETTE BANG BASIC METABOLIC PANEL+MG UREA NITROGEN [MASS/VOLUM E] IN SERUM OR PLASMA 14 8 - 26 03/29 Specimen Type: PLASMA No comment entered. Ordering Provider: GENE LAYTON Report Released Date/Time: Feb 24, 2023 04:04 PM Reporting Lab: [facility] [address] Performing Lab: [facility] [address] [facility] BASIC METABOLIC PANEL+MG GLUCOSE [MASS/VOLUM E] IN SERUM OR PLASMA 129 70 - 100 03/29 H Specimen Type: PLASMA No comment entered. Ordering Provider: GENE LAYTON Report Released Date/Time: Feb 24, 2023 04:04 PM Reporting Lab: [facility] [address] Performing Lab: [facility] [address] [facility] BASIC METABOLIC PANEL+MG SODIUM [MOLES/VOLU ME] IN SERUM OR PLASMA 134 136 - 145 03/29 L Specimen Type: PLASMA No comment entered. Ordering Provider: GENE LAYTON Report Released Date/Time: Feb 24, 2023 04:04 PM Reporting Lab: [facility] [address] Performing Lab: [facility] [address] [facility] BASIC METABOLIC PANEL+MG POTASSIUM [MOLES/VOLU ME] IN SERUM OR PLASMA 3.9 3.5 - 5.1 03/29 Specimen Type: PLASMA No comment entered. Ordering Provider: GENE LAYTON Report Released Date/Time: Feb 24, 2023 04:04 PM Reporting Lab: [facility] [address] Performing Lab: [facility] [address] [facility] BASIC METABOLIC PANEL+MG CHLORIDE [MOLES/VOLU ME] IN SERUM OR PLASMA 97 98 - 107 03/29 L Specimen Type: PLASMA No comment entered. Ordering Provider: GENE LAYTON Report Released Date/Time: Feb 24, 2023 04:04 PM Reporting Lab: [facility] [address] Performing Lab: [facility] [address] [facility] BASIC METABOLIC PANEL+MG CARBON DIOXIDE, TOTAL [MOLES/VOLU ME] IN SERUM OR PLASMA 25 22 - 29 03/29 Specimen Type: PLASMA No comment entered. Ordering Provider: GENE LAYTON Report Released Date/Time: Feb 24, 2023 04:04 PM Reporting Lab: [facility] [address] Performing Lab: [facility] [address] [facility] BASIC METABOLIC PANEL+MG CALCIUM [MASS/VOLUM E] IN SERUM OR PLASMA 9.8 8.4 - 10.2 03/29 Specimen Type: PLASMA No comment entered. Ordering Provider: GENE LAYTON Report Released Date/Time: Feb 24, 2023 04:04 PM Reporting Lab: [facility] [address] Performing Lab: [facility] [address] [facility] BASIC METABOLIC PANEL+MG MAGNESIUM [MASS/VOLUM E] IN SERUM OR PLASMA 1.9 1.6 - 2.6 03/29 Specimen Type: PLASMA No comment entered. Ordering Provider: GENE LAYTON Report Released Date/Time: Feb 24, 2023 04:04 PM Reporting Lab: [facility] [address] Performing Lab: [facility] [address] [facility] BASIC METABOLIC PANEL+MG ANION GAP IN SERUM OR PLASMA 12 5 - 15 03/29 Specimen Type: PLASMA No comment entered. Ordering Provider: GENE LAYTON Report Released Date/Time: Feb 24, 2023 04:04 PM Reporting Lab: [facility] [address] Performing Lab: [facility] [address] [facility] BASIC METABOLIC PANEL+MG GLOMERULAR FILTRATION RATE/1.73 SQ M.PREDICTED [VOLUME RATE/AREA] IN SERUM, PLASMA OR BLOOD BY CREATININE- BASED FORMULA (CKD-EPI 2020) >90 60 03/29 Specimen Type: PLASMA No comment entered. Ordering Provider: GENE LAYTON Report Released Date/Time: Feb 24, 2023 04:04 PM Reporting Lab: [facility] [address] Performing Lab: [facility] [address] [facility] CBC & DIFF LEUKOCYTES [#/VOLUME] IN BLOOD BY AUTOMATED COUNT 7.94 4.0 - 11.0 03/29 Specimen Type: BLOOD Comment: Automated Differentia l Performed Ordering Provider: GENE LAYTON Report Released Date/Time: Feb 24, 2023 04:04 PM Reporting Lab: [facility] [address] Performing Lab: [facility] [address] [facility] CBC & DIFF ERYTHROCYTE S [#/VOLUME] IN BLOOD BY AUTOMATED COUNT 4.36 4.6 - 6.2 03/29 L Specimen Type: BLOOD Comment: Automated Differentia l Performed Ordering Provider: GENE LAYTON Report Released Date/Time: Feb 24, 2023 04:04 PM Reporting Lab: [facility] [address] Performing Lab: [facility] [address] [facility] CBC & DIFF HEMOGLOBIN [MASS/VOLUM E] IN BLOOD 12.3 13.5 - 17.9 03/29 L Specimen Type: BLOOD Comment: Automated Differentia l Performed Ordering Provider: GENE LAYTON Report Released Date/Time: Feb 24, 2023 04:04 PM Reporting Lab: [facility] [address] Performing Lab: [facility] [address] [facility] CBC & DIFF HEMATOCRIT [VOLUME FRACTION] OF BLOOD BY AUTOMATED COUNT 36.2 41 - 54 03/29 L Specimen Type: BLOOD Comment: Automated Differentia l Performed Ordering Provider: GENE LAYTON Report Released Date/Time: Feb 24, 2023 04:04 PM Reporting Lab: [facility] [address] Performing Lab: [facility] [address] [facility] CBC & DIFF MCV [ENTITIC VOLUME] BY AUTOMATED COUNT 83.0 80 - 100 03/29 Specimen Type: BLOOD Comment: Automated Differentia l Performed Ordering Provider: GENE LAYTON Report Released Date/Time: Feb 24, 2023 04:04 PM Reporting Lab: [facility] [address] Performing Lab: [facility] [address] [facility] CBC & DIFF MCH [ENTITIC MASS] BY AUTOMATED COUNT 28.2 27 - 33 03/29 Specimen Type: BLOOD Comment: Automated Differentia l Performed Ordering Provider: GENE LAYTON Report Released Date/Time: Feb 24, 2023 04:04 PM Reporting Lab: [facility] [address] Performing Lab: [facility] [address] [facility] CBC & DIFF MCHC [MASS/VOLUM E] BY AUTOMATED COUNT 34.0 32.0 - 37.5 03/29 Specimen Type: BLOOD Comment: Automated Differentia l Performed Ordering Provider: GENE LAYTON Report Released Date/Time: Feb 24, 2023 04:04 PM Reporting Lab: [facility] [address] Performing Lab: [facility] [address] [facility] CBC & DIFF PLATELETS [#/VOLUME] IN BLOOD BY AUTOMATED COUNT 348 150 - 400 03/29 Specimen Type: BLOOD Comment: Automated Differentia l Performed Ordering Provider: GENE LAYTON Report Released Date/Time: Feb 24, 2023 04:04 PM Reporting Lab: [facility] [address] Performing Lab: [facility] [address] [facility] CBC & DIFF PLATELET MEAN VOLUME [ENTITIC VOLUME] IN BLOOD BY AUTOMATED COUNT 8.5 7.4 - 10.4 03/29 Specimen Type: BLOOD Comment: Automated Differentia l Performed Ordering Provider: GENE LAYTON Report Released Date/Time: Feb 24, 2023 04:04 PM Reporting Lab: [facility] [address] Performing Lab: [facility] [address] [facility] CBC & DIFF NEUTROPHILS /100 LEUKOCYTES IN BLOOD BY MANUAL COUNT 63.3 40.0 - 80.0 03/29 Specimen Type: BLOOD Comment: Automated Differentia l Performed Ordering Provider: GENE LAYTON Report Released Date/Time: Feb 24, 2023 04:04 PM Reporting Lab: [facility] [address] Performing Lab: [facility] [address] [facility] CBC & DIFF LYMPHOCYTES /100 LEUKOCYTES IN BLOOD BY MANUAL COUNT 23.0 15.0 - 45.0 03/29 Specimen Type: BLOOD Comment: Automated Differentia l Performed Ordering Provider: GENE LAYTON Report Released Date/Time: Feb 24, 2023 04:04 PM Reporting Lab: [facility] [address] Performing Lab: [facility] [address] [facility] CBC & DIFF MONOCYTES/1 00 LEUKOCYTES IN BLOOD BY AUTOMATED COUNT 7.4 2.0 - 12.0 03/29 Specimen Type: BLOOD Comment: Automated Differentia l Performed Ordering Provider: GENE LAYTON Report Released Date/Time: Feb 24, 2023 04:04 PM Reporting Lab: [facility] [address] Performing Lab: [facility] [address] [facility] CBC & DIFF EOSINOPHILS /100 LEUKOCYTES IN BLOOD BY AUTOMATED COUNT 5.3 0.0 - 6.0 03/29 Specimen Type: BLOOD Comment: Automated Differentia l Performed Ordering Provider: GENE LAYTON Report Released Date/Time: Feb 24, 2023 04:04 PM Reporting Lab: [facility] [address] Performing Lab: [facility] [address] [facility] CBC & DIFF BASOPHILS/1 00 LEUKOCYTES IN BLOOD BY MANUAL COUNT 0.6 0.0 - 2.0 03/29 Specimen Type: BLOOD Comment: Automated Differentia l Performed Ordering Provider: GENE LAYTON Report Released Date/Time: Feb 24, 2023 04:04 PM Reporting Lab: [facility] [address] Performing Lab: [facility] [address] [facility] CBC & DIFF ERYTHROCYTE DISTRIBUTIO N WIDTH [RATIO] BY AUTOMATED COUNT 16.6 11.5 - 14.5 03/29 H Specimen Type: BLOOD Comment: Automated Differentia l Performed Ordering Provider: GENE LAYTON Report Released Date/Time: Feb 24, 2023 04:04 PM Reporting Lab: [facility] [address] Performing Lab: [facility] [address] [facility] CBC & DIFF LYMPHOCYTES [#/VOLUME] IN BLOOD BY AUTOMATED COUNT 1.83 1.0 - 4.0 03/29 Specimen Type: BLOOD Comment: Automated Differentia l Performed Ordering Provider: GENE LAYTON Report Released Date/Time: Feb 24, 2023 04:04 PM Reporting Lab: [facility] [address] Performing Lab: [facility] [address] [facility] CBC & DIFF MONOCYTES [#/VOLUME] IN BLOOD BY AUTOMATED COUNT 0.59 0.1 - 1.0 03/29 Specimen Type: BLOOD Comment: Automated Differentia l Performed Ordering Provider: GENE LAYTON Report Released Date/Time: Feb 24, 2023 04:04 PM Reporting Lab: [facility] [address] Performing Lab: [facility] [address] [facility] CBC & DIFF NEUTROPHILS [#/VOLUME] IN BLOOD BY AUTOMATED COUNT 5.02 2.0 - 7.7 03/29 Specimen Type: BLOOD Comment: Automated Differentia l Performed Ordering Provider: GENE LAYTON Report Released Date/Time: Feb 24, 2023 04:04 PM Reporting Lab: [facility] [address] Performing Lab: [facility] [address] [facility] CBC & DIFF EOSINOPHILS [#/VOLUME] IN BLOOD BY AUTOMATED COUNT 0.42 0 - 0.5 03/29 Specimen Type: BLOOD Comment: Automated Differentia l Performed Ordering Provider: GENE LAYTON Report Released Date/Time: Feb 24, 2023 04:04 PM Reporting Lab: [facility] [address] Performing Lab: [facility] [address] [facility] CBC & DIFF BASOPHILS [#/VOLUME] IN BLOOD BY AUTOMATED COUNT 0.05 0 - 0.2 03/29 Specimen Type: BLOOD Comment: Automated Differentia l Performed Ordering Provider: GENE LAYTON Report Released Date/Time: Feb 24, 2023 04:04 PM Reporting Lab: [facility] [address] Performing Lab: [facility] [address] [facility] CBC & DIFF IG(META,MYE LO,PRO) 0.4 03/29 Specimen Type: BLOOD Comment: Automated Differentia l Performed Ordering Provider: GENE LAYTON Report Released Date/Time: Feb 24, 2023 04:04 PM Reporting Lab: [facility] [address] Performing Lab: [facility] [address] [facility] CBC & DIFF IMMATURE GRANULOCYTE S [PRESENCE] IN BLOOD BY AUTOMATED COUNT 0.03 0 - 0.1 03/29 Specimen Type: BLOOD Comment: Automated Differentia l Performed Ordering Provider: GENE LAYTON Report Released Date/Time: Feb 24, 2023 04:04 PM Reporting Lab: [facility] [address] Performing Lab: [facility] [address] [facility] ALT/SGPT ALANINE AMINOTRANSF ERASE [ENZYMATIC ACTIVITY/VO LUME] IN SERUM OR PLASMA 54 <55 - 55 02/22 Specimen Type: PLASMA No comment entered. Ordering Provider: CLARE MOHR Report Released Date/Time: Feb 09, 2023 03:07 PM Reporting Lab: [facility] [address] Performing Lab: [facility] [address] [place] [facility] AST/SGOT ASPARTATE AMINOTRANSF ERASE [ENZYMATIC ACTIVITY/VO LUME] IN SERUM OR PLASMA 39 <34 - 34 02/22 H Specimen Type: PLASMA No comment entered. Ordering Provider: CLARE MOHR Report Released Date/Time: Feb 09, 2023 03:07 PM Reporting Lab: [facility] [address] Performing Lab: [facility] [address] [place] [facility] CBC LEUKOCYTES [#/VOLUME] IN BLOOD BY AUTOMATED COUNT 9.15 4.0 - 11.0 02/22 Specimen Type: BLOOD Comment: Corrected result reported to: YOBANY DE LA CRUZ 02-23-23 @ [facility]. RBC reported incorrectly as 3.80 by [[id number] 18]. Changed to 4.35 on Feb 23, 2023@13:39 by [[id number] 8]. HCT reported incorrectly as 32.4 by [[id number] 18]. Changed to 37.2 on Feb 23, 2023@13:39 by [[id number] 8]. MCH reported incorrectly as 31.8 by [[id number] 18]. Changed to 27.8 on Feb 23, 2023@13:39 by [[id number] 8]. MCHC reported incorrectly as 37.3 by [[id number] 18]. Changed to 32.5 on Feb 23, 2023@13:39 by [[id number] 8]. Ordering Provider: CLARE MOHR Report Released Date/Time: Feb 09, 2023 03:07 PM Reporting Lab: [facility] [address] Performing Lab: [facility] [address] [facility] CBC ERYTHROCYTE S [#/VOLUME] IN BLOOD BY AUTOMATED COUNT 4.35 4.6 - 6.2 02/22 L Specimen Type: BLOOD Comment: Corrected result reported to: YOBANY DE LA CRUZ 02-23-23 @ [facility]. RBC reported incorrectly as 3.80 by [[id number] 18]. Changed to 4.35 on Feb 23, 2023@13:39 by [[id number] 8]. HCT reported incorrectly as 32.4 by [[id number] 18]. Changed to 37.2 on Feb 23, 2023@13:39 by [[id number] 8]. MCH reported incorrectly as 31.8 by [[id number] 18]. Changed to 27.8 on Feb 23, 2023@13:39 by [[id number] 8]. MCHC reported incorrectly as 37.3 by [[id number] 18]. Changed to 32.5 on Feb 23, 2023@13:39 by [[id number] 8]. Ordering Provider: CLARE MOHR Report Released Date/Time: Feb 09, 2023 03:07 PM Reporting Lab: [facility] [address] Performing Lab: [facility] [address] [facility] CBC HEMOGLOBIN [MASS/VOLUM E] IN BLOOD 12.1 13.5 - 17.9 02/22 L Specimen Type: BLOOD Comment: Corrected result reported to: YOBANY DE LA CRUZ 02-23-23 @ 1338/[facility]. RBC reported incorrectly as 3.80 by [[id number] 18]. Changed to 4.35 on Feb 23, 2023@13:39 by [[id number] 8]. HCT reported incorrectly as 32.4 by [[id number] 18]. Changed to 37.2 on Feb 23, 2023@13:39 by [[id number] 8]. MCH reported incorrectly as 31.8 by [[id number] 18]. Changed to 27.8 on Feb 23, 2023@13:39 by [[id number] 8]. MCHC reported incorrectly as 37.3 by [[id number] 18]. Changed to 32.5 on Feb 23, 2023@13:39 by [[id number] 8]. Ordering Provider: CLARE MOHR Report Released Date/Time: Feb 09, 2023 03:07 PM Reporting Lab: [facility] [address] Performing Lab: [facility] [address] [facility] CBC HEMATOCRIT [VOLUME FRACTION] OF BLOOD BY AUTOMATED COUNT 37.2 41 - 54 02/22 L Specimen Type: BLOOD Comment: Corrected result reported to: YOBANY DE LA CRUZ 02-23-23 @ 1338/[facility]. RBC reported incorrectly as 3.80 by [[id number] 18]. Changed to 4.35 on Feb 23, 2023@13:39 by [[id number] 8]. HCT reported incorrectly as 32.4 by [[id number] 18]. Changed to 37.2 on Feb 23, 2023@13:39 by [[id number] 8]. MCH reported incorrectly as 31.8 by [[id number] 18]. Changed to 27.8 on Feb 23, 2023@13:39 by [[id number] 8]. MCHC reported incorrectly as 37.3 by [[id number] 18]. Changed to 32.5 on Feb 23, 2023@13:39 by [[id number] 8]. Ordering Provider: CLARE MOHR Report Released Date/Time: Feb 09, 2023 03:07 PM Reporting Lab: [facility] [address] Performing Lab: [facility] [address] [facility] CBC MCV [ENTITIC VOLUME] BY AUTOMATED COUNT 85.3 80 - 100 02/22 Specimen Type: BLOOD Comment: Corrected result reported to: YOBANY DE LA CRUZ 02-23-23 @ 1338/HSM. RBC reported incorrectly as 3.80 by [[id number] 18]. Changed to 4.35 on Feb 23, 2023@13:39 by [[id number] 8]. HCT reported incorrectly as 32.4 by [[id number] 18]. Changed to 37.2 on Feb 23, 2023@13:39 by [[id number] 8]. MCH reported incorrectly as 31.8 by [[id number] 18]. Changed to 27.8 on Feb 23, 2023@13:39 by [[id number] 8]. MCHC reported incorrectly as 37.3 by [[id number] 18]. Changed to 32.5 on Feb 23, 2023@13:39 by [[id number] 8]. Ordering Provider: CLARE MOHR Report Released Date/Time: Feb 09, 2023 03:07 PM Reporting Lab: [facility] [address] Performing Lab: [facility] [address] [facility] CBC MCH [ENTITIC MASS] BY AUTOMATED COUNT 27.8 27 - 33 02/22 Specimen Type: BLOOD Comment: Corrected result reported to: YOBANY DE LA CRUZ 02-23-23 @ 1338/[facility]SM. RBC reported incorrectly as 3.80 by [[id number] 18]. Changed to 4.35 on Feb 23, 2023@13:39 by [[id number] 8]. HCT reported incorrectly as 32.4 by [[id number] 18]. Changed to 37.2 on Feb 23, 2023@13:39 by [[id number] 8]. MCH reported incorrectly as 31.8 by [[id number] 18]. Changed to 27.8 on Feb 23, 2023@13:39 by [[id number] 8]. MCHC reported incorrectly as 37.3 by [[id number] 18]. Changed to 32.5 on Feb 23, 2023@13:39 by [[id number] 8]. Ordering Provider: CLARE MOHR Report Released Date/Time: Feb 09, 2023 03:07 PM Reporting Lab: [facility] [address] Performing Lab: [facility] [address] [facility] CBC MCHC [MASS/VOLUM E] BY AUTOMATED COUNT 32.5 32.0 - 37.5 02/22 Specimen Type: BLOOD Comment: Corrected result reported to: YOBANY DE LA CRUZ 02-23-23 @ [facility]. RBC reported incorrectly as 3.80 by [[id number] 18]. Changed to 4.35 on Feb 23, 2023@13:39 by [[id number] 8]. HCT reported incorrectly as 32.4 by [[id number] 18]. Changed to 37.2 on Feb 23, 2023@13:39 by [[id number] 8]. MCH reported incorrectly as 31.8 by [[id number] 18]. Changed to 27.8 on Feb 23, 2023@13:39 by [[id number] 8]. MCHC reported incorrectly as 37.3 by [[id number] 18]. Changed to 32.5 on Feb 23, 2023@13:39 by [[id number] 8]. Ordering Provider: CLARE MOHR Report Released Date/Time: Feb 09, 2023 03:07 PM Reporting Lab: [facility] [address] Performing Lab: [facility] [address] [place] [facility] CBC PLATELETS [#/VOLUME] IN BLOOD BY AUTOMATED COUNT 314 150 - 400 02/22 Specimen Type: BLOOD Comment: Corrected result reported to: YOBANY DE LA CRUZ 02-23-23 @ 1338/[facility]SM. RBC reported incorrectly as 3.80 by [[id number] 18]. Changed to 4.35 on Feb 23, 2023@13:39 by [[id number] 8]. HCT reported incorrectly as 32.4 by [[id number] 18]. Changed to 37.2 on Feb 23, 2023@13:39 by [[id number] 8]. MCH reported incorrectly as 31.8 by [[id number] 18]. Changed to 27.8 on Feb 23, 2023@13:39 by [[id number] 8]. MCHC reported incorrectly as 37.3 by [[id number] 18]. Changed to 32.5 on Feb 23, 2023@13:39 by [[id number] 8]. Ordering Provider: CLARE MOHR Report Released Date/Time: Feb 09, 2023 03:07 PM Reporting Lab: [facility] [address] Performing Lab: [facility] [address] [facility] CBC PLATELET MEAN VOLUME [ENTITIC VOLUME] IN BLOOD BY AUTOMATED COUNT 9.4 7.4 - 10.4 02/22 Specimen Type: BLOOD Comment: Corrected result reported to: YOBANY DE LA CRUZ 02-23-23 @ 1338/HSM. RBC reported incorrectly as 3.80 by [[id number] 18]. Changed to 4.35 on Feb 23, 2023@13:39 by [[id number] 8]. HCT reported incorrectly as 32.4 by [[id number] 18]. Changed to 37.2 on Feb 23, 2023@13:39 by [[id number] 8]. MCH reported incorrectly as 31.8 by [[id number] 18]. Changed to 27.8 on Feb 23, 2023@13:39 by [[id number] 8]. MCHC reported incorrectly as 37.3 by [[id number] 18]. Changed to 32.5 on Feb 23, 2023@13:39 by [[id number] 8]. Ordering Provider: CLARE MOHR Report Released Date/Time: Feb 09, 2023 03:07 PM Reporting Lab: [facility] [address] Performing Lab: [facility] [address] [facility] CBC ERYTHROCYTE DISTRIBUTIO N WIDTH [RATIO] BY AUTOMATED COUNT 18.7 11.5 - 14.5 02/22 H Specimen Type: BLOOD Comment: Corrected result reported to: YOBANY DE LA CRUZ 02-23-23 @ [facility]. RBC reported incorrectly as 3.80 by [[id number] 18]. Changed to 4.35 on Feb 23, 2023@13:39 by [[id number] 8]. HCT reported incorrectly as 32.4 by [[id number] 18]. Changed to 37.2 on Feb 23, 2023@13:39 by [[id number] 8]. MCH reported incorrectly as 31.8 by [[id number] 18]. Changed to 27.8 on Feb 23, 2023@13:39 by [[id number] 8]. MCHC reported incorrectly as 37.3 by [[id number] 18]. Changed to 32.5 on Feb 23, 2023@13:39 by [[id number] 8]. Ordering Provider: CLARE MOHR Report Released Date/Time: Feb 09, 2023 03:07 PM Reporting Lab: [facility] [address] Performing Lab: [facility] [address] [facility] CREATININ E(INCLUDE S EGFR) CREATININE [MASS/VOLUM E] IN SERUM OR PLASMA 0.8 0.7 - 1.2 02/22 Specimen Type: PLASMA No comment entered. Ordering Provider: CLARE MOHR Report Released Date/Time: Feb 09, 2023 03:07 PM Reporting Lab: [facility] [address] Performing Lab: [facility] [address] [facility] CREATININ E(INCLUDE S EGFR) GLOMERULAR FILTRATION RATE/1.73 SQ M.PREDICTED [VOLUME RATE/AREA] IN SERUM, PLASMA OR BLOOD BY CREATININE- BASED FORMULA (CKD-EPI 2020) >90 60 02/22 Specimen Type: PLASMA No comment entered. Ordering Provider: CLARE MOHR Report Released Date/Time: Feb 09, 2023 03:07 PM Reporting Lab: [facility] [address] Performing Lab: [facility] [address] [place] [facility] ALT/SGPT ALANINE AMINOTRANSF ERASE [ENZYMATIC ACTIVITY/VO LUME] IN SERUM OR PLASMA 32 07/12 Specimen Type: PLASMA No comment entered. Ordering Provider: DANIEL BERNABE Report Released Date/Time: June 28, 2022 12:22 PM Reporting Lab: [facility] [address] Performing Lab: [facility] [address] [place] [facility] AST/SGOT ASPARTATE AMINOTRANSF ERASE [ENZYMATIC ACTIVITY/VO LUME] IN SERUM OR PLASMA 23 07/12 Specimen Type: PLASMA No comment entered. Ordering Provider: DANIEL BERNABE Report Released Date/Time: June 28, 2022 12:22 PM Reporting Lab: [facility] [address] Performing Lab: [facility] [address] [place] [facility] CBC LEUKOCYTES [#/VOLUME] IN BLOOD BY AUTOMATED COUNT 8.09 4.0 - 11.0 07/12 Specimen Type: BLOOD No comment entered. Ordering Provider: DANIEL BERNABE Report Released Date/Time: June 28, 2022 12:22 PM Reporting Lab: [facility] [address] Performing Lab: [facility] [address] [place] [facility] CBC ERYTHROCYTE S [#/VOLUME] IN BLOOD BY AUTOMATED COUNT 4.14 4.6 - 6.2 07/12 L Specimen Type: BLOOD No comment entered. Ordering Provider: DANIEL BERNABE Report Released Date/Time: June 28, 2022 12:22 PM Reporting Lab: [facility] [address] Performing Lab: [facility] [address] [place] [facility] CBC HEMOGLOBIN [MASS/VOLUM E] IN BLOOD 11.9 13.5 - 17.9 07/12 L Specimen Type: BLOOD No comment entered. Ordering Provider: DANIEL BERNABE Report Released Date/Time: June 28, 2022 12:22 PM Reporting Lab: [facility] [address] Performing Lab: [facility] [address] [place] [facility] CBC HEMATOCRIT [VOLUME FRACTION] OF BLOOD BY AUTOMATED COUNT 33.5 41 - 54 07/12 L Specimen Type: BLOOD No comment entered. Ordering Provider: DANIEL BERNABE Report Released Date/Time: June 28, 2022 12:22 PM Reporting Lab: [facility] [address] Performing Lab: [facility] [address] [place] [facility] CBC MCV [ENTITIC VOLUME] BY AUTOMATED COUNT 80.9 80 - 100 07/12 Specimen Type: BLOOD No comment entered. Ordering Provider: DANIEL BERNABE Report Released Date/Time: June 28, 2022 12:22 PM Reporting Lab: [facility] [address] Performing Lab: [facility] [address] [place] [facility] CBC MCH [ENTITIC MASS] BY AUTOMATED COUNT 28.7 27 - 33 07/12 Specimen Type: BLOOD No comment entered. Ordering Provider: DANIEL BERNABE Report Released Date/Time: June 28, 2022 12:22 PM Reporting Lab: [facility] [address] Performing Lab: [facility] [address] [place] [facility] CBC MCHC [MASS/VOLUM E] BY AUTOMATED COUNT 35.5 32.0 - 37.5 07/12 Specimen Type: BLOOD No comment entered. Ordering Provider: DANIEL BERNABE Report Released Date/Time: June 28, 2022 12:22 PM Reporting Lab: [facility] [address] Performing Lab: [facility] [address] [place] [facility] CBC PLATELETS [#/VOLUME] IN BLOOD BY AUTOMATED COUNT 365 150 - 400 07/12 Specimen Type: BLOOD No comment entered. Ordering Provider: DANIEL BERNABE Report Released Date/Time: June 28, 2022 12:22 PM Reporting Lab: [facility] [address] Performing Lab: [facility] [address] [place] [facility] CBC PLATELET MEAN VOLUME [ENTITIC VOLUME] IN BLOOD BY AUTOMATED COUNT 9.3 7.4 - 10.4 07/12 Specimen Type: BLOOD No comment entered. Ordering Provider: DANIEL BERNABE Report Released Date/Time: June 28, 2022 12:22 PM Reporting Lab: [facility] [address] Performing Lab: [facility] [address] [place] [facility] CBC ERYTHROCYTE DISTRIBUTIO N WIDTH [RATIO] BY AUTOMATED COUNT 19.2 11.5 - 14.5 07/12 H Specimen Type: BLOOD No comment entered. Ordering Provider: DANIEL BERNABE Report Released Date/Time: June 28, 2022 12:22 PM Reporting Lab: [facility] [address] Performing Lab: [facility] [address] [place] [facility] CREATININ E(INCLUDE S EGFR) CREATININE [MASS/VOLUM E] IN SERUM OR PLASMA 0.7 0.7 - 1.2 07/12 Specimen Type: PLASMA No comment entered. Ordering Provider: DANIEL BERNABE Report Released Date/Time: June 28, 2022 12:22 PM Reporting Lab: [facility] [address] Performing Lab: [facility] [address] [place] [facility] CREATININ E(INCLUDE S EGFR) GLOMERULAR FILTRATION RATE/1.73 SQ M.PREDICTED [VOLUME RATE/AREA] IN SERUM, PLASMA OR BLOOD BY CREATININE- BASED FORMULA (CKD-EPI 2020) >90 07/12 Specimen Type: PLASMA No comment entered. Ordering Provider: DANIEL BERNABE Report Released Date/Time: June 28, 2022 12:22 PM Reporting Lab: [facility] [address] Performing Lab: [facility] [address] [place] [facility] Vital Signs Combined list of inpatient and outpatient Vital Signs from Department of Defense and Veterans Affairs, ranging from 12 months to all on record, depending upon the facility. Vital Sign Value Date Comments Source SYSTOLIC BLOOD PRESSURE 128 06/22/2022 13:16:04 [facility] DIASTOLIC BLOOD PRESSURE 78 06/22/2022 13:16:04 [facility] PULSE OXIMETRY 96% 06/22/2022 13:16:04 S [...] months. 2) Encounters from the Department of [facility] facilities going back up to 280 months. Location Location Details Encounter Type Encounter Number Reason For Visit Attending Provider ADM Date DC Date Status Disposition Source [place] [facility] Outpatient Encounter [id number] 06/22 [facility] OFFICE O/P EST MOD 30-39 MIN [id number] Diagnos is: ICD-10- CM Z00.01 Encount er for general adult medical exam w abnorma l finding s
PATRICIA LAYTON S 06/22 [facility] [place] [facility] Outpatient Encounter [id number] OTF SHAW 06/28 [facility] [place] [facility] Outpatient Encounter [id number] 06/28 [facility] [place] [facility] Outpatient Encounter [id number] 07/02 [facility] [place] [facility] Outpatient Encounter [id number] 08/13 [place] [facility] [place] [facility] Outpatient Encounter [id number] 01/05 [facility] [place] [facility] Outpatient Encounter [id number] 02/09 [place] [facility] [place] [facility] Outpatient Encounter [id number] JOSHUA SENIOR 02/21 [facility] [place] [facility] Outpatient Encounter [id number] 02/24 [facility] Social History Combined list of available smoking, tobacco, and other social history from 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 Social History Type Response Date Comment Sourc e Tobacco smoking status NHIS ID-TOBACCO NEVER USED 06/23/19 23 JANNETTE GUILLEN History of tobacco use ID-TOBACCO NEVER USED 05/28/2021 [facility] Plan of Care List of future care activities from Department of 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 Additional future care activities may be listed in the Assessment and Plan section. Date/Time Care Activity Care Activity Detail Facili ty 03/29/2023 Laboratory - Chemistry Order COLD AGGLUTI NINS SERUM SP ONCE [facility]
--- OUTSIDE RECORDS SUMMARY | 2023-03-30 12:22 | XMS_ITS | Clinical Summary ---
Author Name Unknown Organization [facility] Address [place], [place] [address] Care Team Providers Care Peer Educator Name Role Phone Aimee Trevizo MD Primary Care Provider [phone] Allergies Active Allergy Reactions Criticality Noted Date [...] Active triamcinolone (ARISTOCORT; KENALOG) 0.1 % creamIndications:[facility] Apply topically to affected [...] is 1200 mg-360 mg 0 04/23/2022 Active dauqhify-rdk-YT-ly copen-lutein (Centrum Silver Men) 300-600-300 mcg tab [...] and aortic valves are within normal limits. Msqh-jl-bwfvpfia color flow velocities across revealed mild tricuspid regurgitation. Estimated right ventricular diastolic pressure is 38 mmHg -04/09/2002 TSH 1.31 [id number] at least 3 HTN, age-1, DM Hypertension 03/04/2015 Diabetes mellitus type II 03/04/2015 Overview: -11/2012 hemoglobin A1c 6.5 -02/2014 hemoglobin A1c 6.1 Obstructive sleep apnea Overview: -04/09/2002 Sleep study Moderate to severe sleep apnea. Titrated for CPAP Encounters Date Type Department Care Team Description 01/04/2023 Telephone [employer] [facility] [place] [address] [place] [address] Uday Edgar MD Medication Management from Last 3 Months Immunizations Name Administration Dates Next Due COVID-19 vaccine ([employer] NTech 30mcg/0.3mL) KATE CRUM 04/13/2020,03/23/2020 Influenza, High-dose [...] Description 08/08/2023 11:00 AM CDT Office Visit [facility] [address] [place] [address] Uday Edgar MD [address] [place] [address] Health Maintenance Due Date Last [...] age 65+ Completed 8, 08/21/2014 Care Teams Peer Educator Relationship Specialty Start Date End Date Aimee Trevizo MD [address] [place] [address] PCP - General Emergency Medicine 07/23/21
== END 2023-03-30 11:59 | disposition home or self-care (01) ==
PROVIDERS: PCP Family Medicine; Visit Provider Family Medicine
DX: E11.9 Type 2 diabetes mellitus without complications (principal); E78.5 Hyperlipidemia, unspecified; E87.1 Hypo-osmolality and hyponatremia; I10 Essential (primary) hypertension
CPT/HCPCS: 80053; 80061

== ENCOUNTER 2023-04-19 08:50 | Day surgery (SDC) | payer OTHER, SELFPAY ==
[2023-04-19] VITALS (11 sets, daily range): BP systolic 131–154; BP diastolic 68–79; PULSE 61–66; RESP 12–18; TEMP 36.3–36.8; O2SAT 94–98; BMI 42.3
[2023-04-19] MEDS: LACTATED RINGERS 1000 ML 1,000 ML 100 ML IV (09:05)
[2023-04-19] MEDS: SODIUM CHLORIDE 0.9 % (FLUSH) 10 ML SYRINGE IVF (09:41)
--- NOTE | 2023-04-19 10:15 | NM_ITS ---
Patient: NORMA GARCIA Facility:?[facility] Patient ID:?[id number] Site Patient ID:?[id number]. 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 0.79mCi millicuries of 68o-Ze-Nglyqccc Sulfur Colloid in a volume of 1.5 Cc was injected intradermal in the left upper arm adjacent to the melanoma with a 25-gauge needle. The patient tolerated the procedure well and there were no immediate complications. IMPRESSION: Injection for sentinel lymph node of the left upper arm melanoma. Dictated by Philip Pickard MD @ 04/19/2023 12:26:45 PM Signed by:?Philip Pickard MD @04/19/2023 12:26:45 PM (Electronic Signature)
--- NOTE | 2023-04-19 11:48 | W.PM.H&PU ---
History & Physical Update History & Physical Update H&P Reviewed and patient assessed: No changes noted
--- NOTE | 2023-04-19 12:03 | W.ANESCHARGE ---
Anesthesia Charges Start Date/Time Anesthesia Start Date: 04/19/23 Anesthesia Start Time: 12:05 Stop Date/Time Anesthesia Stop Date: 04/19/23 Anesthesia Stop Time: 13:40 Summary Extremes of Age - Over 70 or under 1: MDA
--- NOTE | 2023-04-19 12:07 | P.GSOP_ITS ---
Operative Note Date of procedure: 04/19/23 Pre-op diagnosis: 1. Left upper arm melanoma 1.4 mm deep with no ulceration. Post-op diagnosis: Same Type of Procedure: 1. Wide local excision of left upper arm melanoma. 2. Left axillary sentinel lymph node biopsy. Indications: 77-year-old male on Eliqunayana was seen in clinic after an excisional biopsy of a left upper arm changing skin lesion came back as 1.4 mm thick melanoma with no ulceration. Patient denies family history and personal history of melanoma. On clinical exam in the left upper arm there was a 1 cm in diameter healing surgical incision with no surrounding erythema. Patient's left upper arm was not very mobile and I was only able to abduct it to less than 45?. Given pat ient's pathology results and the thickness of melanoma, wide local excision of melanoma with left sentinel lymph node biopsy was recommended. The procedure was discussed in detail. The risks associated procedure including infection, bleeding, and possible need for additional procedures were all discussed with the patient, and he agreed to proceed. Procedure Description: After discussing the risks and benefits of the procedure, the patient signed informed consent.? The operative site was marked and the patient was brought to the operating room and placed on the operating table in supine position.? Care was taken to pad the patient's pressure points.?? The patient was then intubated by anesthesia.?? The operative site was then prepped and draped in the usual sterile fashion.? A time-out was then performed. I first started with wide local excision of left upper arm melanoma. 1 cm wide excisional biopsy scar was identified in the mid left upper arm. 2 cm lateral and medial margins were marked with a marking pen. In the lips of skin extending from the left shoulder down to the distal left upper arm was marked with a marking pen. Local anesthetic was injected in the surgical site. Skin was incised with a scalpel along the previously marked incision. Dermis and subcutaneous fat were divided with cautery down to the muscle fascia. The ellipse of skin containing the melanoma biopsy scar was excised with cautery. The ellipse of skin was marked with a single stitch superior and double lateral. The lips of skin was measuring 19 x 5.5 cm. This was sent to pathology for permanent section. Hemostasis achieved with cautery. Since patient had very good laxity medially and laterally, only minimal skin flaps were developed in the center of the incision laterally and medially. This was done with cautery. Hemostasis is achieved with cautery. Additional local anesthetic was injected at the surgical site. The dermis of this incision was then reapproximated in layers with 2-0 in 3-0 Vicryl sutures. The length of the incision was 19 cm. The skin was closed with a running 4-0 Monocryl stitch. I then proceeded with left axillary sentinel lymph node biopsy. Prior to bringing the patient to the operating room, the radioactive tracer was injected in same-day surgery by radiology practitioner assistant. When the patient was positioned in the operating room, three ml (milliliters) of Lymphazurin blue was personally injected by tn near the left upper arm melanoma for sentinel lymph node identification. A Ramy counter was brought onto the field in the left axilla to identify the best area for the sentinel node biopsy. An oblique skin incision was then made over that area. Subcutaneous tissues were dissected with electrocautery. A green lymph node was identified and appeared to have radioactive signal of 374. This was excised with cautery. This was sent to pathology as the sentinel node #1. Axillary lelia tissue was examined again with the [place] counter and and no additional significant signal was identified. Hemostasis was achieved with cautery. This incision was then closed in layers with 3-0 Vicryl interrupted stitches to re-approximate subcutaneous layer and 4- 0 Monocryl subcuticular stitch to close skin. Steri-Strips and sterile pressure dressing were applied over both incisions. All counts were correct at the end of the case. ? The patient was then woken and transported to the recovery area in stable condition. Findings: Left upper arm melanoma was excised with no tension on the incision after closure. One sentinel lymph node was identified. Anesthesia: GETA Surgeon: Jaqui Griffiths MD Estimated blood loss (mL): 15 Additional Specimen Information: 1. Left upper arm melanoma. 2. Left axillary sentinel lymph node. Condition: stable Disposition: PACU Primary Cutaneous Melanoma Operation Performed with Curative Intent: Yes Original Breslow thickness of the lesion: Depth in mm 1.4 Clinical margin width (measured from the edge of the lesion or the prior excision scar): 2 cm Depth of Excision: Full thickness skin/subcutaneous tissue down to fascia (melanoma)
[2023-04-19] MEDS: CEFAZOLIN 1 GM inj 3 GM IVP (12:15)
[2023-04-19] MEDS: ISOSULFAN BLUE 5 ML VIAL INJECTION (12:20)
[2023-04-19] MEDS: BUPIVACAINE 0.25% 30 ML 15 ML INJECTION (13:10)
--- NOTE | 2023-04-19 13:45 | P.ANES_ITS ---
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
== END 2023-04-19 15:07 | disposition home or self-care (01) ==
PROVIDERS: PCP Family Medicine; Visit Provider Surgery
PROC: (CPT 11606; principal; 2023-04-19 11:30)
PROC: (CPT 11606; 2023-04-19 11:30)
DX: C43.62 Malignant melanoma of left upper limb, including shoulder (principal); E11.9 Type 2 diabetes mellitus without complications
CPT/HCPCS: 11606; 12035; 38500; 1610; 38792; 82962; 88305; 88307; 88342; 99100; A9541; J0330; J0665; J0690; J2371; J2405; J2704; J3010; J3490; J7120

== ENCOUNTER 2024-12-18 09:31 | Outpatient (CLI) | payer MEDICARE, SELFPAY | END 2024-12-18 09:32 | disposition home or self-care (01) | LOC: CT 09:35 | PROVIDERS: PCP Family Medicine; Visit Provider Orthopaedic Surgery Sports Medicine | DX: Z01.818 Encounter for other preprocedural examination (principal); M19.012 Primary osteoarthritis, left shoulder | CPT/HCPCS: 73200 ==

== ENCOUNTER 2025-01-14 10:20 | Day surgery (SDC) | payer MEDICARE, SELFPAY ==
[2025-01-14] VITALS (24 sets, daily range): BP systolic 134–176; BP diastolic 59–94; PULSE 51–73; RESP 11–16; TEMP 36.1–36.9; O2SAT 92–99; BMI 41.1
[2025-01-14] MEDS: OXYCODONE (CR) 10 MG TAB.ER.12H PO (11:45)
[2025-01-14] MEDS: ACETAMINOPHEN 500 MG TABLET 1000 MG PO ×3 (11:45→23:36)
[2025-01-14] MEDS: LACTATED RINGERS 1000 ML 1,000 ML 100 ML IV (12:00)
[2025-01-14] MEDS: SODIUM CHLORIDE 0.9 % (FLUSH) 10 ML SYRINGE IVF (12:00)
[2025-01-14] MEDS: MIDAZOLAM HCL 1 MG/ML inj IVP (12:07)
--- NOTE | 2025-01-14 12:10 | P.ANES_ITS ---
Anesthesia Charges Start Date/Time Anesthesia Start Date: 01/14/25 Anesthesia Start Time: 12:19 Stop Date/Time Anesthesia Stop Date: 01/14/25 Anesthesia Stop Time: 15:08 Summary Extremes of Age - Over 70 or under 1: MDA Coding CPT Codes CPT Codes: ANESTH SHOULDER REPLACEMENT - 20629 ([id number]) P3 - PATIENT W/SEVERE SYS DISEASE, QK - CANE CUTTER 2-4 CNCRNT ANES PROC, QX - BUMPER OPERATOR SVC W/ MD MED DIRECTION Additional Codes: Summary - Extremes of Age - Over 70 or under 1: MDA ([id number])
--- NOTE | 2025-01-14 12:10 | W.ANESCHARGE ---
Anesthesia Charges Start Date/Time Anesthesia Start Date: 01/14/25 Anesthesia Start Time: 12:19 Stop Date/Time Anesthesia Stop Date: 01/14/25 Anesthesia Stop Time: 15:08 Summary Extremes of Age - Over 70 or under 1: MDA Coding CPT Codes CPT Codes: ANESTH SHOULDER REPLACEMENT - 67755 ([id number]) P3 - PATIENT W/SEVERE SYS DISEASE, QK - INTERNET MARKETING SPECIALIST 2-4 CNCRNT ANES PROC, QX - RESEARCH COMPLIANCE SPECIALIST SVC W/ MD MED DIRECTION Additional Codes: Summary - Extremes of Age - Over 70 or under 1: MDA ([id number])
--- NOTE | 2025-01-14 12:10 | W.PM.NB ---
Nerve Block Nerve Block Time Seen by Provider: 12:10 Date Seen: 01/14/25 Type of block requested by surgeon for post-operative analgesia: supraclavicular Side: left Time out performed: Yes Verification of patient name: Yes Verification of date of : Yes Site marking: site marked Name of person performing procedure: Swapnil Continuous monitoring Was continuous monitoring of O2 sat, B/P, monogram technician, recorded every 15 minutes?: Yes Procedure Checklist: sterile prep, needles and gloves Ultrasound guided. Images saved: Yes Medications given in 5ml increments after negative aspiration: Ropivicaine %: 0.5 mL: 15 Needle gauge: 22 Precedex (mcg): 25 Patient tolerated procedure well: Yes Block Charges Block Charge (with Pro Fee): Brachial Plexus Use of Ultrasound Machine for Block: Yes- US Guidance/pain block
--- NOTE | 2025-01-14 12:13 | SUR.PREOP ---
TIME?OUT:?1206 PT/RN/MDA?VERIFICATION?OF?SURGICAL?SITE,?PROCEDURE,?AND?CONSENT OBTAINED?PRIOR?TO?INVASIVE?PROCEDURE.
[2025-01-14] MEDS: TRANEXAMIC ACID 100 MG/ML INJ 1000 MG IV (12:45)
--- NOTE | 2025-01-14 12:55 | W.PM.H&PU ---
History & Physical Update History & Physical Update H&P Reviewed and patient assessed: No changes noted
--- NOTE | 2025-01-14 14:41 | PM.ORPRC ---
Procedure Note Date of procedure: 01/14/25 Procedure: PREOPERATIVE DIAGNOSIS: 1. Left shoulder osteoarthrosis, primary, severe with poor rotator quality/integrity POSTOPERATIVE DIAGNOSIS: 1. Left shoulder osteoarthrosis, primary, severe with poor cuff tissue quality PROCEDURE: 1. Left reverse shoulder arthroplasty. SURGEON: Prince Delgado MD. JAVA SECURITY ENGINEER: Pradeep Ding PA-C - Of note, a skilled customer marketing assistant was critical for this case to aid in patient positioning, tissue retraction, limb manipulation/positioning, retraction for glenoid exposure, which was challenging, awareness and protection of critical structures, and closure. ANESTHESIA: General plus supraclavicular block EBL: 200 ml IMPLANTS: DJ0/Enovis reverse shoulder system Altivate humeral stem size 8 small shell, short with P2 porous coating vitamin E neutral poly small socket insert Altivate augmented glenoid base plate P2 porous coating with 3 perimeter locking screws Central Screw (30 mm) Central horowitz taper insert 32 neutral glenosphere with retaining screw COMPLICATIONS: None evident INDICATIONS: The patient is a pleasant 79-year-old male who has experienced severe left shoulder pain and difficulty with use. Workup included imaging which revealed severe osteoarthrosis along with concern for rotator cuff quality. Physical exam was consistent with associated pain. Given the deformity, the dysfunction, and the pain, and failure of nonoperative management, recommendation was made for surgery. DESCRIPTION OF PROCEDURE: Following a thorough discussion of risks, benefits, and alternatives, consent was obtained and the left shoulder was marked. The patient was brought to the operating room and placed supine on the operating table. Induction of anesthesia was undertaken. 3 g IV Ancef and 1 g tranexamic acid was administered within 1 hr of incision preoperatively. Appropriate time-out was performed identifying proper patient, site, and procedure. The operative extremity was prepped and draped in the appropriate sterile fashion using ChloraPrep after the patient was positioned in the lazy beach chair position with head in neutral alignment and all bony prominences well padded. A longitudinal incision was made for deltopectoral approach. Deltoid was retracted laterally. Cephalic vein was not identified during this procedure. It was felt that we were in the deltopectoral interval as we began near the coracoid and work distal. However, again the cephalic vein was not clearly identified during this procedure. The clavipectoral fascia was identified and divided longitudinally staying lateral to the conjoined tendon / coracoid. The conjoined tendon was protected with a blunt Hohmann. The long head of the biceps tendon was not identified but the bicipital groove was identified and the rotator interval released. The upper 1/4 of the pectoralis major was also released from its insertion. The rotator cuff was inspected and found to have good integrity with the subscapularis but fair integrity with a supraspinatus], and a decision for a reverse shoulder arthroplasty was confirmed. A subscapularis cuff of tissue was left via tenotomy for later repair with the remaining subscapularis released in a subperiosteal fashion with the Bovie. This was tagged for later repair. The 3 sisters were cauterized. The upper subscapularis was released from the capsule with a curved Arnold scissors towards the glenoid. The inferior subscapularis was divided from the capsular tissue on its caudal surface with particular caution for the axillary nerve. This was palpated anterior to the subscapularis both prior to and near the finish of the case. Inferior humeral head osteophytes were excised with caution taken throughout the case with regards to the axillary nerve. The humerus was dislocated, and humeral head cut completed. Then a protector plate was applied. We turned our attention to the glenoid. The humerus was retracted posteriorly. The subscap was protected anteriorly and the labrum/long head biceps origin was excised circumferentially. The capsule was released along the anterior and inferior portions of the glenoid cautiously with a Arango elevator being careful not to penetrate deep. The glenoid had appropriate exposure, and was prepared with the cannulated system with a target of approximately 5-10? of inferior tilt and neutral anteversion (patient had 20? of retroversion initially). Utilizing the match Point 3D printed guide, the guide pin was placed. The 3D printed jig removed and after placing the guide pin, the tap was placed followed by the glenoid reaming. The real base plate was opened, and inserted, and excellent compression/purchase was achieved with the central screw. Peripheral screws were then drilled, measured, and placed. The glenosphere was then placed consistent with the preoperative plan utilizing the above noted glenosphere. After securing the glenosphere with the locking, torque limited screw, attention was turned back to the humerus. A canal finder was placed followed by various reamers by hand. The real humeral stem was then opened and inserted with excellent metaphyseal fit and stability. Trial poly was placed and the shoulder reduced. Excellent reduction and stability achieved with appropriate tension on the conjoined tendon. At this stage, trial implants were removed, and the real implants inserted and the shoulder reduced. A 3 minute Betadine soak was performed followed by a thorough irrigation with normal saline. Subscapularis was repaired with #1 PDS to the cuff of tissue on the lesser tuberosity. Excellent reapproximation of tissue achieved. Hemostasis was found to be appropriate. The deltopectoral interval was reapproximated with 0 Vicryl, subcutaneous and subcuticular closure was then performed with number 2-0 Vicryl and 4-0 Monocryl, respectively. A skilled customer marketing assistant was critical for this case to aid in patient positioning, tissue retraction, limb manipulation/positioning, retraction for glenoid exposure, which was challenging, awareness and protection of critical structures, and closure. PLAN: 1. Sling at all times for the operative upper extremity. 2. AROM of elbow, forearm, wrist, and digits as tolerated. 3. PT/OT consults for education and assistance. 4. Social consult for discharge planning. 5. 23 hr perioperative antibiotics. 6. Early ambulation, and SCDs for DVT prophylaxis. 7. Admit to the hospital for the above 8. Analgesics p.r.n.
--- NOTE | 2025-01-14 15:32 | PM.IMCN1 ---
Date of Consult Patient: Karon Patient ([place]) Consult date: 01/14/25 Requesting Physician: Orthopedics Primary Care Provider: Jesus Conway MD Consult Narrative Reason for consult: Medical management Narrative: Manuel Pierre JR is a 79 year old male past medical history significant for PAF on rate and rhythm control, anticoagulant, hypertension, hyperlipidemia, GERD, rheumatoid arthritis on methotrexate, diabetes mellitus type 2 on metformin, SONYA on CPAP, BPH is POD#0 s/p left reverse total shoulder arthroplasty, Dr. Delgado. There have been no perioperative complications or nursing concerns reported. Estimated total blood loss documented as 200ml. Updated and reviewed the active medical problems, past medical history, past surgical history, social history, allergies and medications in our electronic EMR. Postoperatively, patient is seen with at bedside and reports feeling pretty well other than groggy. Reports pain is currently well managed. Denies headache or dizziness. Denies chest pain or shortness of breath. Tolerating orals without nausea vomiting. Review of Systems Narrative: REVIEW OF SYSTEMS: Complete review of systems performed and negative unless otherwise stated in HPI or below. PFSH PFS Medical History Rheumatoid arthritis ?M06.9 - Rheumatoid arthritis, unspecified (ICD-10) Ascending aorta dilatation ?I77.810 - Thoracic aortic ectasia (ICD-10) Atrial fibrillation ?I48.91 - Unspecified atrial fibrillation (ICD-10) Benign prostatic hyperplasia ?N40.0 - Benign prostatic hyperplasia without lower urinary tract symptoms (ICD-10) Controlled type 2 diabetes mellitus ?E11.9 - Type 2 diabetes mellitus without complications (ICD-10) Hypertension ?I10 - Essential (primary) hypertension (ICD-10) Left ventricular hypertrophy ?I51.7 - Cardiomegaly (ICD-10) Mild intermittent asthma ?J45.20 - Mild intermittent asthma, uncomplicated (ICD-10) Hyperlipidemia ?E78.5 - Hyperlipidemia, unspecified (ICD-10) Obesity (BMI 30-39.9) ?E66.9 - Obesity, unspecified (ICD-10) Osteoarthritis of right hip ?M16.11 - Unilateral primary osteoarthritis, right hip (ICD-10) Greater trochanteric bursitis of right hip ?M70.61 - Trochanteric bursitis, right hip (ICD-10) Lumbar degenerative disc disease ?M51.36 - Other intervertebral disc degeneration, lumbar region (ICD-10) Chronic hyponatremia ?E87.1 - Hypo-osmolality and hyponatremia (ICD-10) Left rotator cuff tear arthropathy ?M75.102 - Unspecified rotator cuff tear or rupture of left shoulder, not specified as traumatic (ICD-10) ?M12.812 - Other specific arthropathies, not elsewhere classified, left shoulder (ICD-10) Decubitus ulcer of buttock, stage 1 ?L89.301 - Pressure ulcer of unspecified buttock, stage 1 (ICD-10) Surgical site infection ?T81.49XA - Infection following a procedure, other surgical site, initial encounter (ICD-10) Melanoma ?C43.9 - Malignant melanoma of skin, unspecified (ICD-10) Obstructive sleep apnea treated with continuous positive airway pressure (CPAP) ?G47.33 - Obstructive sleep apnea (adult) (pediatric) (ICD-10) ?Z99.89 - Dependence on other enabling machines and devices (ICD-10) Onychomycosis ?B35.1 - Tinea unguium (ICD-10) Osteoarthritis, shoulder ?M19.019 - Primary osteoarthritis, unspecified shoulder (ICD-10) Iron deficiency anemia ?D50.9 - Iron deficiency anemia, unspecified (ICD-10) Anemia ?D64.9 - Anemia, unspecified (ICD-10) Surgical History History of melanoma excision ?Z98.890 - Other specified postprocedural states (ICD-10) ?Z85.820 - Personal history of malignant melanoma of skin (ICD-10) 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) ?Z96.611 - Presence of right artificial shoulder joint (ICD-10) 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) ?Z96.651 - Presence of right artificial knee joint (ICD-10) Cataract extraction status of eye ?Z98.49 - Cataract extraction status, unspecified eye (ICD-10) Hx of total knee arthroplasty (08/25/20) ?Z96.659 - Presence of unspecified artificial knee joint (ICD-10) Status post inguinal ligation of varicocele ?Z98.890 - Other specified postprocedural states (ICD-10) ?Z86.79 - Personal history of other diseases of the circulatory system (ICD-10) History of umbilical hernia repair ?Z98.890 - Other specified postprocedural states (ICD-10) ?Z87.19 - Personal history of other diseases of the digestive system (ICD-10) History of tonsillectomy ?Z90.89 - Acquired absence of other organs (ICD-10) History of thyroidectomy ?E89.0 - Postprocedural hypothyroidism (ICD-10) History of inguinal hernia repair ?Z98.890 - Other specified postprocedural states (ICD-10) ?Z87.19 - Personal history of other diseases of the digestive system (ICD-10) History of colonoscopy with polypectomy (05/26/21) ?Z98.890 - Other specified postprocedural states (ICD-10) ?Z86.010 - Personal history of colonic polyps (ICD-10) History of bursectomy ?Z98.890 - Other specified postprocedural states (ICD-10) Family History Father Dementia Social History What is your current living situation?: I presently have a place to live Problems where you live: no known problems In the past 12 months, utilities in danger of being shut off: no In past 12 months, lack of transportation kept you from medical appts, meetings, work, or getting things needed for daily living: no In the past 12 mos, have been you worried that your food would run out before you had money to buy more?: never true In the past 12 mos, the food you bought just didn't last and you didn't have money to buy more?: never true Highest level of school completed/degree received: some college, no degree Smoking Status: Never smoker Do you use any of these nicotine containing products: None Second hand tobacco smoke exposure: No How often do you have a drink containing alcohol: never How often do you have six or more drinks on one occasion: Never AUDIT-C Alcohol total score: 0 Non-prescribed substance use: denies use Caffeine: Yes How often does anyone, including family, friends and others, physically hurt you: never How often does anyone, including family, friends and others, insult or talk down to you: never How often does anyone, including family, friends and others, threaten you with harm: never How often does anyone, including family, friends and others, scream or curse at you: never service: Yes Meds Home Medications and Allergies Home Medications ?Medication ?Instructions ?Recorded ?Confirmed ?Type psyllium husk 3.4 gram/5.4 gram 1 tsp PO DAILY 08/04/21 01/14/25 History oral powder albuterol sulfate 90 mcg/actuation 1 puff inhalation Q4H PRN 10/28/21 01/14/25 History aerosol inhaler apixaban 5 mg tablet 5 mg PO BID 10/28/21 01/14/25 History metoprolol succinate 100 mg 100 mg PO DAILY 06/10/22 01/14/25 History tablet,extended release 24 hr atupdaiy-zv-arreh 300 mcg-K 60 1 tab PO DAILY 06/10/22 01/14/25 History mcg-lycop 600 mcg-lutein 300 mcg tablet (Centrum Silver Ultra Men's) folic acid 1 mg tablet 1 mg PO DAILY 11/10/22 01/14/25 History methotrexate sodium 2.5 mg tablet 22.5 mg PO QWEEK 11/10/22 01/14/25 History tamsulosin 0.4 mg capsule 0.4 mg PO DAILY #90 caps 12/09/22 01/14/25 Rx ezetimibe 10 mg tablet 10 mg PO DAILY #90 tabs 03/30/23 01/14/25 Rx fexofenadine 180 mg tablet 180 mg PO DAILY 05/18/23 01/14/25 History (Lia Allergy) potassium chloride 10 mEq 10 meq PO DAILY #90 caps 06/24/23 01/14/25 Rx capsule,extended release cholecalciferol (vitamin D3) 25 50 mcg PO DAILY 12/07/24 01/14/25 History mcg (1,000 unit) capsule (Vitamin D3) famotidine 20 mg tablet 20 mg PO BID 12/07/24 01/14/25 History nifedipine 30 mg tablet,extended 30 mg PO DAILY 12/07/24 01/14/25 History release 24 hr omeprazole 10 mg capsule,delayed 10 mg PO DAILY 12/07/24 01/14/25 History release pravastatin 20 mg tablet 20 mg PO DAILY 12/07/24 01/14/25 History spironolactone 25 mg tablet 25 mg PO QAM 12/07/24 01/14/25 History cyclobenzaprine 5 mg tablet 5 mg PO TID PRN 12/31/24 01/14/25 History metformin 500 mg tablet,extended 2,000 mg PO QPM 12/31/24 01/14/25 History release 24 hr gabapentin 300 mg capsule 300 mg PO HS 01/14/25 01/14/25 History losartan 50 mg tablet 50 mg PO DAILY 01/14/25 01/14/25 History propafenone 225 mg tablet 225 mg PO Q8H 01/14/25 01/14/25 History Allergies Allergy/AdvReac Type Severity Reaction Status Date / Time benazepril Allergy Cough Verified 01/14/25 10:47 rosuvastatin (From Crestor) Allergy leg pain Verified 01/14/25 10:47 Exam Narrative: Exam Narrative: PHYSICAL EXAM General: Pleasant, conversant, NAD HEENT: Normocephalic, atraumatic, sclera white, EOMI, oral mucosa moist Cardiovascular: RRR, S1S2. No pitting edema Pulmonary: CTA bilaterally without rhonchi, rales, expiratory wheezes. No dyspnea Neurological: Alert, answering questions appropriately, cranial nerves intact, no focal findings Extremities: No gross joint deformity or swelling. Postoperative dressing in place, dry. Immobilizer in place. Warm. Neurovascularly intact Skin: Warm, dry. Const: Vital Signs, click to edit/add: Vital Signs - 24 hr 01/14/25 11:03 01/14/25 12:06 01/14/25 12:10 Temperature 98.4 F Pulse Rate 52 L 52 L 51 L Respiratory Rate 16 16 16 Blood Pressure 152/80 H 176/84 H 145/77 H Pulse Oximetry 98 98 99 Oxygen Delivery Me thod Room Air Nasal Cannula Nasal Cannula Oxygen Flow Rate 2 2 01/14/25 15:03 01/14/25 15:10 01/14/25 15:15 Temperature 97.5 F L 97.5 F L 97.5 F L Pulse Rate 64 62 62 Respiratory Rate 12 12 13 Blood Pressure 148/81 H 137/59 L 142/70 H Pulse Oximetry 95 94 95 Oxygen Delivery Me thod Room Air Room Air Room Air Oxygen Flow Rate 01/14/25 15:20 01/14/25 15:25 01/14/25 15:30 Temperature 97.5 F L 97.5 F L 97 F L Pulse Rate 63 63 63 Respiratory Rate 12 11 L 12 Blood Pressure 135/70 136/85 145/78 H Pulse Oximetry 95 92 94 Oxygen Delivery Me thod Room Air Room Air Room Air Oxygen Flow Rate Assessment and Plan Assessment and plan (1) Left rotator cuff tear arthropathy: Problem comment: -POD#0 s/p left reverse total shoulder arthroplasty, Dr. 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 -resume apixiban tomorrow morning as discussed with Ortho team, Maryam mcknight -Followed by [facility] Status: Acute (4) Hypertension: Problem comment: -okay to resume antihypertensives, pressures borderline high normotensive postoperatively Status: Acute (5) Controlled type 2 diabetes mellitus: Problem comment: -most recent A1c 6.4 -glucose checks and insulin sliding scale ACHS -resume metformin on discharge Status: Acute (6) Hyperlipidemia: Problem comment: -resume statin at discharge Status: Acute (7) Rheumatoid arthritis: Problem comment: -per PCP, continue methotrexate postoperatively Status: Acute Plan May resume home medications upon discharge. Resume antihypertensives as well as rate and rhythm control for AFib. Hospital medicine team will sign off. Please contact our service with any questions or concerns. Total Time Spent Total Time Spent: Today I spent 65 minutes seeing the patient, reviewing Expanse and EPIC notes/diagnostics, discussing the care plan with our care time that includes social work, PT/OT, pharmacy, RT, [place] [facility] and documenting my impressions and plan in the medical record.
--- NOTE | 2025-01-14 15:33 | CRLHL7_ITS ---
For Patients: As a result of the Cures Act, medical imaging exams and procedure reports are released immediately into your electronic medical record. You may view this report before your referring provider. If you have questions, please contact your health care provider. Indication: POST OP Technique: Two views left shoulder Findings/Impression: Hardware from a left shoulder arthroplasty is in satisfactory position. Bone alignment is normal. No sign of acute fracture. Postop changes are within normal limits. Dictated by Philip Pickard MD @ 01/15/2025 8:49:10 AM (Electronically Signed)
--- NOTE | 2025-01-14 15:43 | SUR.PHASEI ---
patient met discharge criteria per anesthesia
[2025-01-14] MEDS: LACTATED RINGERS 1000 ML 1,000 ML 75 ML IV (16:00)
[2025-01-14] MEDS: PROPAFENONE HCL 150 MG TABLET 225 MG PO ×2 (17:40→23:38)
[2025-01-14] MEDS: CEFAZOLIN 3 GM in 0.9 % SODIUM CHLORIDE Mini-bag 100 ML IVPB (18:50)
--- NOTE | 2025-01-14 19:26 | P.ANES_ITS ---
Anesthesia Charges Start Date/Time Anesthesia Start Date: 01/14/25 Anesthesia Start Time: 12:19 Stop Date/Time Anesthesia Stop Date: 01/14/25 Anesthesia Stop Time: 15:08 Coding CPT Codes CPT Codes: ANESTH SHOULDER REPLACEMENT - 21603 ([id number]) P3 - PATIENT W/SEVERE SYS DISEASE, QK - COMPLIANCE TECHNICIAN 2-4 CNCRNT ANES PROC, QX - SHEARING SHED WORKER SVC W/ MD MED DIRECTION
--- NOTE | 2025-01-14 19:26 | W.ANESCHARGE ---
Anesthesia Charges Start Date/Time Anesthesia Start Date: 01/14/25 Anesthesia Start Time: 12:19 Stop Date/Time Anesthesia Stop Date: 01/14/25 Anesthesia Stop Time: 15:08 Coding CPT Codes CPT Codes: ANESTH SHOULDER REPLACEMENT - 76794 ([id number]) P3 - PATIENT W/SEVERE SYS DISEASE, QK - MEMORIAL ADVISER 2-4 CNCRNT ANES PROC, QX - DATA ANALYST SVC W/ MD MED DIRECTION
[2025-01-14] MEDS: SENNOSIDES 1 TAB TABLET 2 TAB PO (20:35)
[2025-01-14] MEDS: GABAPENTIN 300 MG CAPSULE PO (20:35)
[2025-01-15] MEDS: CEFAZOLIN 3 GM in 0.9 % SODIUM CHLORIDE Mini-bag 100 ML IVPB (02:30)
[2025-01-15 03:06] VITALS: BP 137/77; PULSE 66; RESP 16; TEMP 36.2; O2SAT 96
[2025-01-15 05:40] VITALS: TEMP 36.2
[2025-01-15] MEDS: ACETAMINOPHEN 500 MG TABLET 1000 MG PO (05:40)
[2025-01-15] MEDS: OMEPRAZOLE 20 MG CAPSULE DR PO (05:40)
--- NOTE | 2025-01-15 06:26 | PC.NURSE ---
Pt rested well. Pain controlled. No N/V. Up ambulating and voiding. Afebrile. Assuming Dischg.
[2025-01-15 08:34] VITALS: BP 130/71; PULSE 60; RESP 16; TEMP 36; O2SAT 95
[2025-01-15] MEDS: METOPROLOL SUCCINATE (XL) 100 MG TAB PO (08:41)
[2025-01-15] MEDS: LOSARTAN POTASSIUM 50 MG TABLET PO (08:41)
[2025-01-15] MEDS: SPIRONOLACTONE 25 MG TABLET PO (08:42)
[2025-01-15] MEDS: SENNOSIDES 1 TAB TABLET 2 TAB PO (08:42)
[2025-01-15] MEDS: APIXABAN 5 MG TABLET PO (08:42)
[2025-01-15] MEDS: PROPAFENONE HCL 150 MG TABLET 225 MG PO (08:42)
[2025-01-15] MEDS: TAMSULOSIN HCL 0.4 MG CAPSULE PO (08:42)
[2025-01-15 09:10] VITALS: PULSE 60
--- NOTE | 2025-01-15 10:07 | P.ORPN_ITS ---
Subjective Subjective Date Seen: 01/15/25 Principal diagnosis: POD1 lef reverse total shoulder arthroplasty Interval history: Patient reports doing well. No acute events over night. Pain managed with scheduled and PRN medications, ice. DVT prophylaxis: Restarting apixaban this morning to AFib history, SCDs, walking. Denies fevers, chills, aches, N/V, CP, SOB/TRUJILLO, or lightheadedness. Passing flatus. Ortho Exam Narrative Exam Narrative: -Patient appears comfortable in recliner; no apparent acute distress -Alert and oriented times 3 -Operative shoulder swollen; soft, supple tissues; no obvious erythema. Ecchymosis minimal. Warmth appropriate -Surgical dressing clean, dry, but coming undone proximally; no obvious drainage, no erythematous streaking peripheral to the bandage -Bilateral calves soft and supple; no significant swelling, edema, tenderness, erythema, discoloration, warmth, or palpable cords -2+ radial pulse, intact dermatomes and myotomes distally (5/5 strength) Const Vital Signs, click to edit/add: Vital Signs - 24 hr 01/14/25 11:03 01/14/25 12:06 01/14/25 12:10 Temperature 98.4 F Pulse Rate 52 L 52 L 51 L Pulse Rate [Right Pulse Oximeter] Respiratory Rate 16 16 16 Blood Pressure 152/80 H 176/84 H 145/77 H Blood Pressure [Right Arm] Pulse Oximetry 98 98 99 Oxygen Delivery Method Room Air Nasal Cannula Nasal Cannula Oxygen Flow Rate 2 2 01/14/25 15:03 01/14/25 15:10 01/14/25 15:15 Temperature 97.5 F L 97.5 F L 97.5 F L Pulse Rate 64 62 62 Pulse Rate [Right Pulse Oximeter] Respiratory Rate 12 12 13 Blood Pressure 148/81 H 137/59 L 142/70 H Blood Pressure [Right Arm] Pulse Oximetry 95 94 95 Oxygen Delivery Method Room Air Room Air Room Air Oxygen Flow Rate 01/14/25 15:20 01/14/25 15:25 01/14/25 15:30 Temperature 97.5 F L 97.5 F L 97 F L Pulse Rate 63 63 63 Pulse Rate [Right Pulse Oximeter] Respiratory Rate 12 11 L 12 Blood Pressure 135/70 136/85 145/78 H Blood Pressure [Right Arm] Pulse Oximetry 95 92 94 Oxygen Delivery Method Room Air Room Air Room Air Oxygen Flow Rate 01/14/25 15:38 01/14/25 15:53 01/14/25 16:08 Temperature 97.0 F L 97.0 F L 97.0 F L Pulse Rate Pulse Rate [Right Pulse Oximeter] 62 62 61 Respiratory Rate 14 14 14 Blood Pressure Blood Pressure [Right Arm] 146/78 H 150/86 H 145/75 H Pulse Oximetry 95 95 95 Oxygen Delivery Method Room Air Room Air Room Air Oxygen Flow Rate 2 01/14/25 16:12 01/14/25 16:27 01/14/25 17:23 Temperature 97.0 F L 97.3 F L 97.3 F L Pulse Rate 70 Pulse Rate [Right Pulse Oximeter] 62 73 Respiratory Rate 16 16 16 Blood Pressure 155/70 H Blood Pressure [Right Arm] 150/72 H 143/60 H Pulse Oximetry 96 97 97 Oxygen Delivery Method Room Air Room Air Room Air Oxygen Flow Rate 01/14/25 18:23 01/14/25 19:23 01/14/25 19:49 Temperature 97.2 F L 97.2 F L Pulse Rate Pulse Rate [Right Pulse Oximeter] 73 69 Respiratory Rate 16 16 Blood Pressure Blood Pressure [Right Arm] 138/82 151/91 H Pulse Oximetry 96 96 Oxygen Delivery Method Room Air Room Air Oxygen Flow Rate 0 01/14/25 20:25 01/14/25 21:13 01/14/25 21:26 Temperature 97.2 F L 97.0 F L Pulse Rate 69 Pulse Rate [Right Pulse Oximeter] 65 69 Respiratory Rate 16 16 Blood Pressure Blood Pressure [Right Arm] 134/94 H 144/88 H Pulse Oximetry 96 93 Oxygen Delivery Method Room Air Room Air Oxygen Flow Rate 0 01/14/25 22:21 01/14/25 23:34 01/14/25 23:36 Temperature 97.0 F L 97.0 F L Pulse Rate Pulse Rate [Right Pulse Oximeter] 69 Respiratory Rate 16 Blood Pressure Blood Pressure [Right Arm] 151/88 H Pulse Oximetry 93 96 Oxygen Delivery Method Room Air Room Air Oxygen Flow Rate 0 01/15/25 03:06 01/15/25 05:40 01/15/25 08:34 Temperature 97.2 F L 97.2 F L 96.8 F L Pulse Rate Pulse Rate [Right Pulse Oximeter] 66 60 Respiratory Rate 16 16 Blood Pressure Blood Pressure [Right Arm] 137/77 130/71 Pulse Oximetry 96 95 Oxygen Delivery Method Room Air Room Air Oxygen Flow Rate 01/15/25 08:34 01/15/25 09:10 Temperature Pulse Rate 60 Pulse Rate [Right Pulse Oximeter] Respiratory Rate 16 Blood Pressure Blood Pressure [Right Arm] Pulse Oximetry 95 Oxygen Delivery Method Room Air Oxygen Flow Rate Assessment and Plan Assessment and plan (1) Left rotator cuff tear arthropathy: Problem details: -POD#1 s/p left reverse total shoulder arthroplasty, Dr. 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 -resume apixiban tomorrow morning as discussed with Ortho team, Maryam mcknight -Followed by [facility] Status: Acute (4) Hypertension: Problem details: -okay to resume antihypertensives, pressures borderline high normotensive postoperatively Status: Acute (5) Controlled type 2 diabetes mellitus: Problem details: -most recent A1c 6.4 -glucose checks and insulin sliding scale ACHS -resume metformin on discharge Status: Acute (6) Hyperlipidemia: Problem details: -resume statin at discharge Status: Acute (7) Rheumatoid arthritis: Problem details: -per PCP, continue methotrexate postoperatively Status: Acute Plan - Complete 23 hour perioperative antibiotics. - PT/OT consult for education and assistance. - Social work consult for discharge planning - Prescribed analgesics as needed - DVT prophylaxis: Apixaban twice daily as previously prescribed, walking, and SCDs - Tegaderm we placed on the proximal aspect of the bandage to keep it intact - Anticipation is for discharge to home with today 01/15/2025 if the patient remains medically stable, pain is controlled, and they are safe with mobilization.
== END 2025-01-15 11:00 | disposition home or self-care (01) ==
LOC: OR 10:22 → MEDSURG 10:23
PROVIDERS: PCP Family Medicine; Visit Provider Orthopaedic Surgery Sports Medicine
PROC: 0RRJ0JZ Replacement of Right Shoulder Joint with Synthetic Substitute, Open Approach (ICD-10-PCS; CPT 23472; principal; 2025-01-14 13:00)
DX: M19.012 Primary osteoarthritis, left shoulder (principal); M75.102 Unspecified rotator cuff tear or rupture of left shoulder, not specified as traumatic; G89.18 Other acute postprocedural pain; M06.9 Rheumatoid arthritis, unspecified; G47.33 Obstructive sleep apnea (adult) (pediatric); E11.9 Type 2 diabetes mellitus without complications; I48.91 Unspecified atrial fibrillation; I10 Essential (primary) hypertension; E66.9 Obesity, unspecified; K21.9 Gastro-esophageal reflux disease without esophagitis; N40.0 Benign prostatic hyperplasia without lower urinary tract symptoms; Z68.41 Body mass index [BMI] 40.0-44.9, adult; Z79.631 Long term (current) use of antimetabolite agent; Z79.84 Long term (current) use of oral hypoglycemic drugs; Z99.89 Dependence on other enabling machines and devices; Z79.01 Long term (current) use of anticoagulants; E78.5 Hyperlipidemia, unspecified
CPT/HCPCS: 23472; 01638; 64415; 73030; 76942; 82962; 97110; 97165; 97535; 99100; A9270; C1713; C1776; J0330; J0690; J1171; J2250; J2371; J2704; J2710; J2795; J3010; J7120; L3670